=== PATIENT | male | born 1980 | race Asian ===

== ENCOUNTER 2018-03-24 17:04 | Emergency (ER) | payer SELFPAY ==
[~2018-03-24] VITALS: Ht 160 cm; Wt 45.4 kg
[2018-03-24] MEDS ORDERED: Albuterol/Ipratropium 3ml neb HHN ONE (17:45)
--- NOTE | 2018-03-24 18:13 | Emergency Room Report ---
History of Present Illness General Chief Complaint: Medical Clearance Source: Patient Present Illness HPI 37-year-old male patient presents ER presents ER brought in by police for medical clearance for incarceration. Patient requesting refill of medications for hyperthyroidism hands asthma. Reports has not been taking medication for several weeks since previous released from [facility]. reports that he takes 5 mg of methimazole for hyperthyroidism and dulera for asthma. Reports has been using meth for the past few days. denies acute complaints at this time. Denies fever, chest pain, shortness of breath, abdominal pain, vision changes, diarrhea, constipation. DEnies dysuria, hematuria. denies suicidal or homicidal ideation. Allergies: Coded Allergies: No Known Allergies (Unverified , 03/24/18) Patient History Past Medical History: see triage record Reviewed Nursing Documentation: PMH: Agreed; PSxH: Agreed Nursing Documentation-PMH Past Medical History: No History, Except For Hx Asthma: Yes History Of Psychiatric Problem: Yes - depression, bipolar Review of Systems All Other Systems: negative except mentioned in HPI Physical Exam Vital Signs Date Time Temp Pulse Resp B/P (MAP) Pulse Ox O2 Delivery O2 Flow Rate FiO2 03/24/18 17:06 97.5 94 16 135/102 100 Room Air 97.5 03/24/18 17:48 21 Sp02 EP Interpretation: reviewed, normal General Appearance: well appearing, no apparent distress, alert, GCS 15, non- toxic Head: normocephalic, atraumatic Eyes: bilateral eye normal inspection, bilateral eye PERRL ENT: hearing grossly normal, normal pharynx, no angioedema, normal voice, uvula midline, moist mucus membranes Neck: full range of motion Respiratory: lungs clear, no rhonchi, no respiratory distress, no accessory muscle use, no wheezing, decreased breath sounds - bilateral lower lung villavicencio, speaking full sentences Cardiovascular #1: regular rate, rhythm, no edema Gastrointestinal: non tender, soft, no mass, non-distended, no guarding, no rebound Musculoskeletal: back normal, digits/nails normal, gait/station normal, normal range of motion, non-tender Neurologic: alert, oriented x3, responsive, motor strength/tone normal, sensory intact Psychiatric: mood/affect normal, no suicidal/homicidal ideation Skin: no rash Medical Decision Making PA Attestation Dr. Rosenthal is my supervising Physician whom patient management has been discussed with. Diagnostic Impression: Primary Impression: Medical clearance for incarceration Additional Impressions: Asthma Hyperthyroidism ER Course Pt. presents to the ED requesting medical clearance for booking. Multiple differentials considered. Patient Vitals Signs WNL, patient is afebrile. ER COURSE: Patient has no acute complaints. Will provide 5 mg of methimazole to patient. Decreased breath sounds noted in bilateral lower lung villavicencio, with provide breathing treatment. Patient afebrile, no crackles does not require chest x-ray , low suspicion for pneumonia. Albuterol/Atrovent breathing treatment provided. Following treatment patient states breathing without difficulty, lung sounds present in all villavicencio, no wheezes, rhonchi, rales. Patient is resting comfortably in no acute distress. No skull depression, no abdominal TTP. Patient not suicidal or homicidal at this time. Patient in no acute distress, nontoxic appearing, breathing without difficulty. Patient informed by police would not be able to receive prescriptions, do not need to provide patient with prescriptions at this time, states will be seen by medical staff after booking, instructed patient to discuss medication refills and needs at that time. Don't do drugs. DISCHARGE: At this time pt. is stable for d/c to police custody. Will provide printed patient care instructions, and any necessary prescriptions. Care plan and follow up instructions have been discussed with the patient prior to discharge - Please note that this Emergency Department Report was dictated using [employer] lead consultant technology software, occasionally this can lead to erroneous entry secondary to interpretation by the dictation equipment. Last Vital Signs Date Time Temp Pulse Resp B/P (MAP) Pulse Ox O2 Delivery O2 Flow Rate FiO2 03/24/18 17:57 88 20 100 Room Air 21 03/24/18 17:06 97.5 135/102 97.5 Disposition: HOME, SELF-CARE Condition: Stable Referrals: NOT CHOSEN [facility]/,REFERRING (PCP) Patient Instructions: Asthma, Adult, [id number], Hyperthyroidism Additional Instructions: Followup with primary care provider in 3 -5 days. Take medications as directed. Patient questions asked and answered. ER precautions given, patient instructed to return to ER immediately for any new or worsening of symptoms. Marquez Sanchez Mar 24, 2018 18:13
[2018-03-24 18:20] VITALS: BP 127/89
== END 2018-03-24 18:20 | disposition home or self-care (01) ==
LOC: EMR 17:25
DX: Z02.89 Encounter for other administrative examinations (principal); F32.9 Major depressive disorder, single episode, unspecified; E05.90 Thyrotoxicosis, unspecified without thyrotoxic crisis or storm; J45.909 Unspecified asthma, uncomplicated; F15.90 Other stimulant use, unspecified, uncomplicated; F17.200 Nicotine dependence, unspecified, uncomplicated
CPT/HCPCS: 94640; 94664; 99284; J7620

== ENCOUNTER 2019-05-22 17:09 | Inpatient (IN) | payer OTHER, SELFPAY ==
[~2019-05-22] VITALS: Ht 162.6 cm; Wt 56.0 kg
[2019-05-22 17:16] VITALS: BP 126/75
--- NOTE | 2019-05-22 17:21 | NUR ---
ED Nurse Note: Pt BIBA from home due to SOB and productive cough with yellowish sputum started last night. Pt takes Redihaler and Dulera at home for Asthma but medications have not been working well. Was given Albuterol en route. Pt also complains of chest discomfort/pressure 9/10 at this time. Upon arrival, pt was noted to use accessary muscles to breathe, lung sounds wheezing, diminished. Was put on 2L NC to assist breathing by RT. AOOx4, HR >100, ERMD aware. color television console monitor attached. Will cont to monitor.
[2019-05-22] MEDS ORDERED: Solu-MEDROL 125mg Inj IVP ONE (17:30)
[2019-05-22] MEDS: Ipratropium 0.02% Inh Soln 2.5ml UD HHN SCH ×3 (17:32→17:37)
[2019-05-22] MEDS: Albuterol ud Inhalation HHN SCH ×3 (17:32→17:37)
--- NOTE | 2019-05-22 17:42 | NUR ---
ED Nurse Note: X-ray tech at bedside for imaging.
[2019-05-22] MEDS ORDERED: NASONEX17 GM NASAL (17:43)
[2019-05-22] MEDS ORDERED: QVAR7.3 GM INH (17:43)
[2019-05-22 17:51] LABS: BASOPHILS % (AUTO) 0.8 % (0.0-2.0); EOSINOPHILS % (AUTO) 3.3 % (0.0-3.0); HEMOGLOBIN 15.3 G/DL (14.2-18.0); MEAN CORPUSCULAR VOLUME 94 FL (80-99); MONOCYTES % (AUTO) 7.8 % (1.0-10.0); NEUTROPHILS % (AUTO) 67.1 % (45.0-75.0); PLATELET COUNT 207 K/UL (150-450); RED BLOOD COUNT 4.89 M/UL (4.70-6.10); RED CELL DISTRIBUTION WIDTH 11.8 % (11.6-14.8); WHITE BLOOD COUNT 9.3 K/UL (4.8-10.8)
[2019-05-22 18:02] LABS: ANION GAP 11 mmol/L (5-15); BLOOD UREA NITROGEN 14 mg/dL (7-18); CARBON DIOXIDE 27 MMOL/L (21-32); CHLORIDE 106 MMOL/L (98-107); CREATININE 0.9 MG/DL (0.55-1.30); POTASSIUM 3.5 MMOL/L (3.5-5.1); SODIUM 144 MMOL/L (136-145)
--- NOTE | 2019-05-22 18:06 | Diagnostic Imaging Report ---
Indication: Reason For Exam: COUGH Technique: Single AP view of the chest. Comparison: None. Findings: Evaluation of the cardiomediastinal silhouette is limited due to significant patient rotation. There is pulmonary vascular congestion. There is streaky right basilar airspace opacity. No pneumothorax. No pleural fluid. No acute osseous abnormality. IMPRESSION: 1. Limited examination due to patient rotation. 2. Pulmonary vascular congestion with right basilar airspace opacity which may represent atelectasis but pneumonia should be excluded on a clinical basis. This corresponds with the statrad preliminary report.
[2019-05-22 18:07] LABS: ALANINE AMINOTRANSFERASE 26 U/L (12-78); ALBUMIN 3.4 G/DL (3.4-5.0); ALBUMIN/GLOBULIN RATIO 1.1 (1.0-2.7); ALKALINE PHOSPHATASE 110 U/L (46-116); ASPARTATE AMINO TRANSFERASE 21 U/L (15-37); BILIRUBIN,TOTAL 0.6 MG/DL (0.2-1.0)
[2019-05-22] MEDS ORDERED: Azithromycin 500 MG in NS 275 ML IV ONE (18:30)
[2019-05-22] MEDS ORDERED: cefTRIAXone 1 GM in NS 55 ML IVPB ONE (18:30)
[2019-05-22 18:37] VITALS: BP 130/83
[2019-05-22 18:47] LABS: APPEARANCE,URINE SLIGHTLY CLOUDY; BILIRUBIN, URINE NEGATIVE (NEGATIVE); GLUCOSE, URINE (UA) NEGATIVE (NEGATIVE); KETONES,URINE NEGATIVE (NEGATIVE); LEUKOCYTE ESTERASE ,URINE NEGATIVE (NEGATIVE); NITRITE,URINE NEGATIVE (NEGATIVE); PH,URINE 5 (4.5-8.0); PROTEIN,URINE NEGATIVE (NEGATIVE); UROBILINOGEN,URINE NORMAL MG/DL (0.0-1.0)
--- NOTE | 2019-05-22 18:52 | Emergency Room Report ---
History of Present Illness General Chief Complaint: Dyspnea/Respdistress Source: Patient Present Illness HPI 38-year-old male resents ED for evaluation. Patient brought in by EMS from home. Complaining of cough and wheezing. States he has been feeling "sick" since yesterday. Cough is productive with yellowish phlegm. States that he does have asthma and states that this triggered his asthma. Has been using his inhaler without significant relief. Was given a breathing treatment by EMS. 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 Did not receive a flu shot this year. Denies recent travel. No other aggravating relieving factors. Denies any other associated symptoms Allergies: Coded Allergies: No Known Allergies (Unverified , 03/24/18) Patient History Past Medical History: asthma Past Surgical History: none Pertinent Family History: none Social History: Denies: smoking, alcohol use, drug use Immunizations: UTD Reviewed Nursing Documentation: PMH: Agreed; PSxH: Agreed Nursing Documentation-PMH Past Medical History: No History, Except For Hx Asthma: Yes Review of Systems All Other Systems: negative except mentioned in HPI Physical Exam Vital Signs Date Time Temp Pulse Resp B/P (MAP) Pulse Ox O2 Delivery O2 Flow Rate FiO2 05/22/19 17:10 97 24 108/66 (80) 98 Room Air 05/22/19 17:16 98.6 2.0 05/22/19 17:32 28 Sp02 EP Interpretation: reviewed, normal General Appearance: alert, GCS 15, non-toxic, moderate distress Head: normocephalic, atraumatic Eyes: bilateral eye normal inspection, bilateral eye PERRL ENT: hearing grossly normal, normal pharynx, no angioedema, normal voice Neck: full range of motion, supple/symm/no masses Respiratory: normal breath sounds, crackles, speaking full sentences, wheezing Cardiovascular #1: no edema, tachycardia Cardiovascular #2: 2+ carotid (R), 2+ carotid (L), 2+ radial (R), 2+ radial (L) , 2+ dorsalis pedis (R), 2+ dorsalis pedis (L) Gastrointestinal: normal bowel sounds, non tender, soft, non-distended, no guarding, no rebound Rectal: deferred Genitourinary: normal inspection, no CVA tenderness Musculoskeletal: back normal, gait/station normal, normal range of motion, non- tender Neurologic: alert, oriented x3, responsive, motor strength/tone normal, sensory intact, speech normal Psychiatric: judgement/insight normal, memory normal, mood/affect normal, no suicidal/homicidal ideation Reflexes: 3+ bicep (R), 3+ bicep (L), 3+ tricep (R), 3+ tricep (L), 3+ knee (R) , 3+ knee (L) Lymphatic: no adenopathy Medical Decision Making Diagnostic Impression: Primary Impression: Pneumonia Qualified Codes: J18.1 - Lobar pneumonia, unspecified organism Additional Impression: Asthma Qualified Codes: J45.909 - Unspecified asthma, uncomplicated ER Course Hospital Course 38 yo M presents to ED c/o cough, wheezing Differential diagnoses include: Pneumonia, CHF exacerbation, pneumothorax, fluid overload Clinical course Patient placed on stretcher. On hall monitor. After initial history and physical, I ordered nebulizer treatments. I ordered labs, IV fluids, EKG, chest x-ray, blood cultures, UA. Patient placed on nasal cannula with O2 saturation improving Labs - no leukocytosis, hemoglobin/hematocrit stable, electrolytes ok, lactate 2.0 EKG - NSR, no acute ischemic changes interpreted by me CXR - R lower lobe infiltrate Patient remains wheezing after multiple treatments. Has pneumonia. Given wheezing. Given antibiotics Case discussed with and he agreed to the patient to his service for further care and support I feel this is a highly complex case requiring extensive working including EKG/ Rhythm strip, Xray/CT/US, Blood/urine lab work, repeat exams while in ED, and administration of strong opiates/narcotics for pain control, admission to hospital or close patient follow up. Diagnosis - pneumonia, asthma Patient admitted to telemetry in serious condition Labs Test 05/22/19 17:30 05/22/19 18:25 05/22/19 18:30 White Blood Count 9.3 K/UL (4.8-10.8) Red Blood Count 4.89 M/UL (4.70-6.10) Hemoglobin 15.3 G/DL (14.2-18.0) Hematocrit 46.0 % (42.0-52.0) Mean Corpuscular Volume 94 FL (80-99) Mean Corpuscular Hemoglobin 31.3 PG (27.0-31.0) Mean Corpuscular Hemoglobin Concent 33.2 G/DL (32.0-36.0) Red Cell Distribution Width 11.8 % (11.6-14.8) Platelet Count 207 K/UL (150-450) Mean Platelet Volume 5.6 FL (6.5-10.1) Neutrophils (%) (Auto) 67.1 % (45.0-75.0) Lymphocytes (%) (Auto) 21.0 % (20.0-45.0) Monocytes (%) (Auto) 7.8 % (1.0-10.0) Eosinophils (%) (Auto) 3.3 % (0.0-3.0) Basophils (%) (Auto) 0.8 % (0.0-2.0) Sodium Level 144 MMOL/L (136-145) Potassium Level 3.5 MMOL/L (3.5-5.1) Chloride Level 106 MMOL/L (98-107) Carbon Dioxide Level 27 MMOL/L (21-32) Anion Gap 11 mmol/L (5-15) Blood Urea Nitrogen 14 mg/dL (7-18) Creatinine 0.9 MG/DL (0.55-1.30) Estimat Glomerular Filtration Rate > 60 mL/min (>60) Glucose Level 104 MG/DL (74-106) Calcium Level 9.0 MG/DL (8.5-10.1) Total Bilirubin 0.6 MG/DL (0.2-1.0) Aspartate Amino Transf (AST/SGOT) 21 U/L (15-37) Alanine Aminotransferase (ALT/SGPT) 26 U/L (12-78) Alkaline Phosphatase 110 U/L (46-116) Total Protein 6.6 G/DL (6.4-8.2) Albumin 3.4 G/DL (3.4-5.0) Globulin 3.2 g/dL Albumin/Globulin Ratio 1.1 (1.0-2.7) Lactic Acid Level 2.00 mmol/L (0.4-2.0) Urine Color Yellow Urine Appearance Slightly cloudy Urine pH 5 (4.5-8.0) Urine Specific [place] 1.020 (1.005-1.035) Urine Protein Negative (NEGATIVE) Urine Glucose (UA) Negative (NEGATIVE) Urine Ketones Negative (NEGATIVE) Urine Blood Negative (NEGATIVE) Urine Nitrite Negative (NEGATIVE) Urine Bilirubin Negative (NEGATIVE) Urine Urobilinogen Normal MG/DL (0.0-1.0) Urine Leukocyte Esterase Negative (NEGATIVE) EKG Diagnostic Results Rate: normal Rhythm: NSR ST Segments: no acute changes ASA given to the pt in ED: No Rhythm Strip Diag. Results EP Interpretation: yes Rhythm: NSR, no PVC's, no ectopy Chest X-Ray Diagnostic Results Chest X-Ray Diagnostic Results : Chest X-Ray Ordered: Yes # of Views/Limited/Complete: 1 View Indication: Shortness of Breath EP Interpretation: Yes Interpretation: no pneumothorax, other - RLL infiltrate Impression: Other - pneumonia Electronically Signed by: Electronically signed by Gamaliel Barcenas MD Last Vital Signs Date Time Temp Pulse Resp B/P (MAP) Pulse Ox O2 Delivery O2 Flow Rate FiO2 05/22/19 18:37 98.6 106 18 130/83 100 Nasal Cannula 2.0 28 Status: improved Disposition: ADMITTED INPATIENT Condition: Serious Referrals: [facility],REFERR[facility] (PCP) Gamaliel Barcenas MD May 22, 2019 18:52
[2019-05-22 18:55] LABS: COLOR,URINE YELLOW
--- NOTE | 2019-05-22 19:05 | NUR ---
ED Nurse Note: Recieved report from AVERY Smith
--- NOTE | 2019-05-22 19:10 | NUR ---
ED Nurse Note: Report given to AVERY Eisenberg.
--- NOTE | 2019-05-22 20:24 | NUR ---
ED Nurse Note: REPORT GIVEN TO AVERY AUGUSTINE.
--- NOTE | 2019-05-22 20:29 | NUR ---
ED Nurse Note: PT SENT TO TELE (OBS) PER DR'S ORDER, SINUS RHYTHM ON B2B ACCOUNT EXECUTIVE, REPORT WAS GIVEN TO AVERY AUGUSTINE, ALL BELONGINGS SENT W/ COMPLETED LIST, MED RECON DONE, PT STATES HE FEELS BETTER, NOTED PT ON O2VIA NC 2L/MIN 100%. VSS. IV INTACT AND PATENT.
[2019-05-22 20:50] VITALS: BP 110/69
--- NOTE | 2019-05-22 20:50 | NUR ---
NURSE NOTES: Received pt from Evelina Landin RN. pt transported via gurney. pt is a0x4 on 2L nasal cannula support. IV site intact and patent. Bed locked in lowest position, call light within reach. security monitor placed on patient, vitals taken. belongings list signed. Pt meds sent to pharmacy. Will contact MD for admission orders.
[2019-05-22] MEDS ORDERED: Albuterol/Ipratropium 3ml neb HHN PRN (21:30)
[2019-05-23] VITALS: BP 119/78
[2019-05-23] MEDS: Albuterol ud Inhalation HHN SCH ×6 (03:19→23:39)
[2019-05-23 04:00] VITALS: BP 105/56
[2019-05-23] MEDS: Solu-MEDROL 125mg Inj IVP SCH ×3 (06:10→21:22)
[2019-05-23 06:18] LABS: HEMATOCRIT 42.7 % (42.0-52.0); HEMOGLOBIN 14.3 G/DL (14.2-18.0); MEAN CORPUSCULAR VOLUME 94 FL (80-99); PLATELET COUNT 226 K/UL (150-450); RED BLOOD COUNT 4.54 M/UL (4.70-6.10); RED CELL DISTRIBUTION WIDTH 12.8 % (11.6-14.8); WHITE BLOOD COUNT 8.2 K/UL (4.8-10.8)
[2019-05-23 06:28] LABS: ANION GAP 9 mmol/L (5-15); BLOOD UREA NITROGEN 11 mg/dL (7-18); CALCIUM 8.8 MG/DL (8.5-10.1); CARBON DIOXIDE 26 MMOL/L (21-32); CHLORIDE 106 MMOL/L (98-107); CREATININE 0.9 MG/DL (0.55-1.30); SODIUM 141 MMOL/L (136-145)
--- NOTE | 2019-05-23 07:15 | NUR ---
HAND-OFF: Report given to AVERY santo. Endorsed plan of care.
--- NOTE | 2019-05-23 07:20 | NUR ---
NURSE NOTES: Received report from Eleuterio/RN, Patient is awake, eating breakfast on bed. Breathing unlabored and even, no acute distress/SOB noted. AAO x4, Able to make needs known. IV site patent, no bleeding or infiltration noted. Encouraged to use call light when needed. Bed in low position and locked, Bed alarm engaged. Call light within reach. Will continue plan of care.
[2019-05-23 08:00] VITALS: BP 124/77
[2019-05-23] MEDS: Azithromycin 250mg tab ORAL SCH (08:51)
[2019-05-23] MEDS: cefTRIAXone 1 GM in D5W 55 ML IVPB SCH (08:51)
[2019-05-23] MEDS: Heparin 5000 units/ml inj SUBQ SCH ×2 (08:54→21:00)
--- NOTE | 2019-05-23 08:54 | NUR ---
*-* INSURANCE *-* ALL AVAILABLE CLINICALS HAVE BEEN FAXED TO: [facility] RANDOLPH: ARSEN P- [phone] X [phone] F- [phone]...........REVIEW/CLINICAL Addendum: 05/23/19 at 1500 by SAUL MOORE CM S/W [facility] HAVE BEEN RECEIVED BUT IN THEIR SYSTEM PT IS STILL OBS...
[2019-05-23] MEDS ORDERED: Azithromycin 250mg tab ORAL SCH (09:00)
--- NOTE | 2019-05-23 09:22 | Pulmonology Progress Note ---
Assessment/Plan Assessment/Plan Pulmonary Consultation HPI Patient is a 38 year old man with history of Asthma admitted with Asthma exacerbation and Pneumonia, complained of cough and wheezing, malaise, cough is productive of yellowish phlegm. States that he does have asthma and states that this triggered his asthma. 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 Did not receive a flu shot this year. Denies recent travel. No other aggravating relieving factors. Denies any other associated symptoms Allergies: No Known Allergies Past Medical History: Asthma, "Underdeveloped Lung" Social History: Denies: smoking, alcohol use, drug use All Other Systems: negative except mentioned in HPI Physical Exam Vital Signs Noted Date Time Temp Pulse Resp B/P (MAP) Pulse Ox O2 Delivery O2 Flow Rate FiO2 05/22/19 17:10 97 24 108/66 (80) 98 Room Air 05/22/19 17:16 98.6 2.0 05/22/19 17:32 28 General Appearance: alert, GCS 15, non-toxic, no distress Head: normocephalic, atraumatic Eyes: bilateral eye normal inspection, bilateral eye PERRL ENT: moist mm, no LN Respiratory: normal breath sounds, mild wheezing, few right basal crackles Cardiovascular: Normal HS1, HS2, no edema, tachycardia Abdomen: normal bowel sounds, non tender, soft, non-distended, no guarding, no rebound Extremities: well perfused, no rashes Neurologic: alert, oriented x3, responsive, motor strength/tone normal, sensory intact, speech normal Impression: Asthma exacerbation Underdeveloped lung Pneumonia Plan: IV Ceftriaxone, PO Azithromycin Solumedrol - wean as tolerated HHN Oxygen PRN PPX Monitor labs Labs Test 05/22/19 17:30 05/22/19 18:25 05/22/19 18:30 White Blood Count 9.3 K/UL (4.8-10.8) Red Blood Count 4.89 M/UL (4.70-6.10) Hemoglobin 15.3 G/DL (14.2-18.0) Hematocrit 46.0 % (42.0-52.0) Mean Corpuscular Volume 94 FL (80-99) Mean Corpuscular Hemoglobin 31.3 PG (27.0-31.0) Mean Corpuscular Hemoglobin Concent 33.2 G/DL (32.0-36.0) Red Cell Distribution Width 11.8 % (11.6-14.8) Platelet Count 207 K/UL (150-450) Mean Platelet Volume 5.6 FL (6.5-10.1) Neutrophils (%) (Auto) 67.1 % (45.0-75.0) Lymphocytes (%) (Auto) 21.0 % (20.0-45.0) Monocytes (%) (Auto) 7.8 % (1.0-10.0) Eosinophils (%) (Auto) 3.3 % (0.0-3.0) Basophils (%) (Auto) 0.8 % (0.0-2.0) Sodium Level 144 MMOL/L (136-145) Potassium Level 3.5 MMOL/L (3.5-5.1) Chloride Level 106 MMOL/L (98-107) Carbon Dioxide Level 27 MMOL/L (21-32) Anion Gap 11 mmol/L (5-15) Blood Urea Nitrogen 14 mg/dL (7-18) Creatinine 0.9 MG/DL (0.55-1.30) Estimat Glomerular Filtration Rate > 60 mL/min (>60) Glucose Level 104 MG/DL (74-106) Calcium Level 9.0 MG/DL (8.5-10.1) Total Bilirubin 0.6 MG/DL (0.2-1.0) Aspartate Amino Transf (AST/SGOT) 21 U/L (15-37) Alanine Aminotransferase (ALT/SGPT) 26 U/L (12-78) Alkaline Phosphatase 110 U/L (46-116) Total Protein 6.6 G/DL (6.4-8.2) Albumin 3.4 G/DL (3.4-5.0) Globulin 3.2 g/dL Albumin/Globulin Ratio 1.1 (1.0-2.7) Lactic Acid Level 2.00 mmol/L (0.4-2.0) Urine Color Yellow Urine Appearance Slightly cloudy Urine pH 5 (4.5-8.0) Urine Specific [place] 1.020 (1.005-1.035) Urine Protein Negative (NEGATIVE) Urine Glucose (UA) Negative (NEGATIVE) Urine Ketones Negative (NEGATIVE) Urine Blood Negative (NEGATIVE) Urine Nitrite Negative (NEGATIVE) Urine Bilirubin Negative (NEGATIVE) Urine Urobilinogen Normal MG/DL (0.0-1.0) Urine Leukocyte Esterase Negative (NEGATIVE) EKG: Rate: normal Rhythm: NSR ST Segments: no acute changes Chest X-Ray: no pneumothorax, other - RLL infiltrate Subjective ROS Limited/Unobtainable: No Respiratory: Reports: shortness of breath, wheezing Allergies: Coded Allergies: No Known Allergies (Unverified , 03/24/18) Objective Last 24 Hour Vital Signs Date Time Temp Pulse Resp B/P (MAP) Pulse Ox O2 Delivery O2 Flow Rate FiO2 05/23/19 08:00 98.1 104 22 124/77 (93) 98 05/23/19 07:30 92 18 99 Nasal Cannula 2.0 28 90 18 99 05/23/19 04:00 98.0 98 20 105/56 (72) 94 05/23/19 04:00 98 05/23/19 03:19 96 18 99 Nasal Cannula 2.0 28 94 18 96 05/23/19 00:18 113 20 98 Nasal Cannula 2.0 28 110 18 93 05/23/19 00:00 98.2 94 23 119/78 (92) 96 05/23/19 00:00 94 05/22/19 21:05 Nasal Cannula 2.0 05/22/19 21:02 94 05/22/19 20:50 98.1 94 20 110/69 (83) 99 05/22/19 20:30 98.6 106 35 130/83 98 Nasal Cannula 2.0 28 05/22/19 19:26 126 35 98 05/22/19 18:37 98.6 106 18 130/83 100 Nasal Cannula 2.0 28 05/22/19 17:40 112 20 Nasal Cannula 2.0 28 05/22/19 17:32 112 20 100 Nasal Cannula 2.0 28 05/22/19 17:32 112 20 100 Nasal Cannula 2.0 28 05/22/19 17:16 98.6 110 30 126/75 100 Nasal Cannula 2.0 05/22/19 17:10 97 24 108/66 (80) 98 Room Air Intake and Output 05/22/19 05/23/19 19:00 07:00 Intake Total 1055 ml 100 ml Balance 1055 ml 100 ml Intake IV Total 1055 ml 100 ml # Voids 1 2 Laboratory Tests 05/22/19 17:30: White Blood Count 9.3, Red Blood Count 4.89, Hemoglobin 15.3, Hematocrit 46.0, Mean Corpuscular Volume 94, Mean Corpuscular Hemoglobin 31.3H, Mean Corpuscular Hemoglobin Concent 33.2, Red Cell Distribution Width 11.8, Platelet Count 207, Mean Platelet Volume 5.6L, Neutrophils (%) (Auto) 67.1, Lymphocytes (%) (Auto) 21.0, Monocytes (%) (Auto) 7.8, Eosinophils (%) (Auto) 3.3H, Basophils (%) (Auto ) 0.8, Sodium Level 144, Potassium Level 3.5, Chloride Level 106, Carbon Dioxide Level 27, Anion Gap 11, Blood Urea Nitrogen 14, Creatinine 0.9, Estimat Glomerular Filtration Rate > 60, Glucose Level 104, Calcium Level 9.0, Total Bilirubin 0.6, Aspartate Amino Transf (AST/SGOT) 21, Alanine Aminotransferase ( ALT/SGPT) 26, Alkaline Phosphatase 110, Total Protein 6.6, Albumin 3.4, Globulin 3.2, Albumin/Globulin Ratio 1.1 05/22/19 18:25: Lactic Acid Level 2.00 05/22/19 18:30: Urine Color Yellow, Urine Appearance Slightly cloudy, Urine pH 5, Urine Specific [place] 1.020, Urine Protein Negative, Urine Glucose (UA) Negative, Urine Ketones Negative, Urine Blood Negative, Urine Nitrite Negative, Urine Bilirubin Negative, Urine Urobilinogen Normal, Urine Leukocyte Esterase Negative 05/23/19 06:03: White Blood Count 8.2, Red Blood Count 4.54L, Hemoglobin 14.3, Hematocrit 42.7, Mean Corpuscular Volume 94, Mean Corpuscular Hemoglobin 31.5H, Mean Corpuscular Hemoglobin Concent 33.5, Red Cell Distribution Width 12.8, Platelet Count 226, Mean Platelet Volume 5.3L, Neutrophils (%) (Auto) , Lymphocytes (%) (Auto) , Monocytes (%) (Auto) , Eosinophils (%) (Auto) , Basophils (%) (Auto) , Sodium Level 141, Potassium Level 5.0, Chloride Level 106, Carbon Dioxide Level 26, Anion Gap 9, Blood Urea Nitrogen 11, Creatinine 0.9, Estimat Glomerular Filtration Rate > 60, Glucose Level 131H, Calcium Level 8.8 Current Medications Medications (Trade) Dose Ordered Sig/Niki Route PRN Reason Start Time Stop Time Status Last Admin Dose Admin Acetaminophen (Tylenol) 650 mg Q4H PRN ORAL Mild Pain/Temp > 100.5 05/22/19 21:30 06/21/19 21:29 Albuterol Sulfate (Proventil) 2.5 mg Q4HRT HHN 05/23/19 03:00 05/28/19 02:59 05/23/19 07:34 Albuterol/ Ipratropium (Albuterol/ Ipratropium) 3 ml Q4H PRN HHN Shortness of Breath 05/22/19 21:30 05/27/19 21:29 05/23/19 00:14 Azithromycin (Zithromax) 500 mg DAILY ORAL 05/23/19 09:00 05/30/19 08:59 05/23/19 08:51 Ceftriaxone Sodium 1 gm/ Dextrose 55 ml @ 110 mls/hr Q24H IVPB 05/23/19 08:00 05/30/19 07:59 05/23/19 08:51 Heparin Sodium (Porcine) (Heparin 5000 units/ml) 5,000 units EVERY 12 HOURS SUBQ 05/23/19 09:00 06/22/19 08:59 05/23/19 08:54 Methylprednisolone Sodium Succinate (Solu-MEDROL) 60 mg EVERY 8 HOURS IVP 05/23/19 06:00 06/22/19 05:59 05/23/19 06:10 Ondansetron HCl (Zofran) 4 mg Q6H PRN IVP Nausea & Vomiting 05/22/19 21:30 06/21/19 21:29 Sodium Chloride 1,000 ml @ 55 mls/hr [id number] IV 05/22/19 21:30 06/21/19 21:29 05/22/19 00:24 Tej Ren MD May 23, 2019 09:22
[2019-05-23 12:00] VITALS: BP 119/78
[2019-05-23] MEDS: guaiFENesin 100mg/5ml Liq ud ORAL PRN (13:13)
--- NOTE | 2019-05-23 13:39 | NUR ---
CASE MANAGEMENT: INITIAL REVIEW 38 YR OLD MALE BIBA FROM HOME CC: DYSPNEA/ RESP. DISTRESS SI: PNA; ASTHMA 98.6 97 24 108/66 98%RA IS: IVF NS BOLUS X2 PROVENTIL HHN X1 ATROVENT HHN X1 IV SOLUMEDROL X1 IV RECEPHIN X1 IV AZITHROMYCIN X1 IV MAG SULFATE X1 : 2E TELE UNIT DCP: RETURN HOME WHEN MEDICALLY CLEARED
--- NOTE | 2019-05-23 13:50 | NUR ---
CASE MANAGEMENT: INITIAL REVIEW 05/23/19 SI: PNA; ASTHMA 98.1 104 22 124/77 98% NC 2L BG 131 IS: ZITHROMAX PO QD IV CEFTRIAXONE Q24HR HEPARIN SQ Q12HR IV SOLUMEDROL Q8HR PROTONIX PO QD NOVOLOG SQ AC&HS ALBUTEROL HHN Q4HR : 2E TELE UNIT DCP: RETURN HOME WHEN MEDICALLY CLEARED
[2019-05-23 16:00] VITALS: BP 126/77
[2019-05-23] MEDS ORDERED: Sorbitol Solution UD 30ml ORAL SCH (16:30)
[2019-05-23] MEDS: NovoLOG Insulin Flexpen SUBQ SCH ×2 (16:42→21:24)
[2019-05-23 17:35] LABS: HEMATOCRIT 44.9 % (42.0-52.0); HEMOGLOBIN 15.1 G/DL (14.2-18.0); MEAN CORPUSCULAR VOLUME 93 FL (80-99); PLATELET COUNT 229 K/UL (150-450); RED BLOOD COUNT 4.81 M/UL (4.70-6.10); RED CELL DISTRIBUTION WIDTH 12.1 % (11.6-14.8); WHITE BLOOD COUNT 13.1 K/UL (4.8-10.8)
[2019-05-23] MEDS ORDERED: Pneumococcal Vaccine 25mcg/0.5ml IM ONE (18:00)
--- NOTE | 2019-05-23 19:01 | Consultation ---
DATE OF CONSULTATION: 05/23/2019 INFECTIOUS DISEASE CONSULTATION CONSULTING PHYSICIAN: Omi Andres M.D. PRIMARY ATTENDING: Josep Agrawal M.D. REASON FOR CONSULT: Pneumonia, asthma exacerbation. HISTORY OF PRESENT ILLNESS: This is a 38-year-old male admitted yesterday from home complaining of cough, wheezing, started 1 day before admission. Had yellowish sputum, substernal chest pain with coughing. Has history of asthma and takes medication including inhaler at the home that did not work. PAST MEDICAL HISTORY: Asthma, nicotine dependence. ALLERGIES: No known drug allergy. MEDICATIONS: Getting azithromycin, heparin, ceftriaxone, methylprednisolone, albuterol, ipratropium inhaler, Zofran, sodium chloride. SOCIAL HISTORY: Smoking 1 half pack cigarettes a day. Single. Has no kids. Denies drug or alcohol abuse. REVIEW OF SYSTEMS: He feels hot and cold. No sore throat. No runny nose. Productive cough, wheezing , chest pain with coughing. No nausea. No vomiting. No diarrhea. No problem passing urine. His explanation is that the patient had flu shot this year, but never had pneumonia vaccination. PHYSICAL EXAMINATION: VITAL SIGNS: Temperature 98.1, pulse 94, blood pressure 124/77. GENERAL APPEARANCE: No acute distress. Well developed. HEAD AND NECK: Standard conjunctiva. HEART: Normal rate, regular. LUNGS: Bilateral wheezing. ABDOMEN: Soft, nontender. EXTREMITIES: No edema. LABORATORY AND DIAGNOSTIC DATA: UA was negative. WBC 8.2, hemoglobin 14.3, hematocrit 42.7, platelets is 226. Sodium 141, potassium 5, chloride 106, bicarb 26, BUN 11, creatinine 0.9, glucose 131. Chest x-ray showed pulmonary vascular congestion with right basilar airspace opacity with atelectasis, cannot rule out pneumonia. IMPRESSION: 1. Atelectasis with pneumonia in right lower lung. 2. Asthma exacerbation. 3. Nicotine dependence. RECOMMENDATION: Continue ceftriaxone and azithromycin short course. The patient is willing to quit smoking. We will start a nicotine patch. Also wants to get pneumonia vaccination that was ordered. At the end of my exam, I thank Dr. Agrawal for involving me in the care of this patient. Omi Andres M.D. DR: CHELSY JOB#: [id number] CC: NEO
--- NOTE | 2019-05-23 19:35 | NUR ---
NURSE NOTES: Received patient from AVERY Gramajo. Patient resting in bed comfortably, no signs of distress or pain noted. IV sit checked, patent and intact, no signs of redness, bleeding, or infiltration. Bed in lowest position, brakes on, side rails up x2, and call light within reach. Will continue with plan of care.
--- NOTE | 2019-05-23 19:55 | NUR ---
HAND-OFF: Report given to Josie/RN, Patient in stable condition. Endorsed plan of care.
[2019-05-23 20:00] VITALS: BP 121/73
[2019-05-24] VITALS: BP 133/90
[2019-05-24] MEDS: Albuterol ud Inhalation HHN SCH ×7 (03:35→23:42)
[2019-05-24 04:00] VITALS: BP 114/74
[2019-05-24] MEDS: Solu-MEDROL 125mg Inj IVP SCH (06:00)
[2019-05-24] MEDS: NovoLOG Insulin Flexpen SUBQ SCH ×4 (06:30→20:36)
--- NOTE | 2019-05-24 07:15 | NUR ---
NURSE NOTES: Received report from Josie/RN, Patient is awake and alert. Breathing unlabored and even, no acute distress/SOB noted. A/O x4, Able to make needs known. IV site patent, no bleeding or infiltration noted. Tracey pain at this time. Encouraged to use call light when needed. Bed in low position and locked, Bed alarm engaged, Side-rails up x2. Call light within reach. Will continue plan of care.
[2019-05-24 07:24] LABS: HEMOGLOBIN 15.1 G/DL (14.2-18.0); MEAN CORPUSCULAR VOLUME 94 FL (80-99); PLATELET COUNT 239 K/UL (150-450); RED BLOOD COUNT 4.87 M/UL (4.70-6.10); WHITE BLOOD COUNT 14.2 K/UL (4.8-10.8)
[2019-05-24 08:00] VITALS: BP 138/90
[2019-05-24] MEDS: cefTRIAXone 1 GM in D5W 55 ML IVPB SCH (08:28)
[2019-05-24] MEDS: Azithromycin 250mg tab ORAL SCH (08:28)
[2019-05-24] MEDS: Heparin 5000 units/ml inj SUBQ SCH ×2 (09:00→21:00)
--- NOTE | 2019-05-24 10:50 | Pulmonology Progress Note ---
Assessment/Plan Assessment/Plan Pulmonary Progress Note HPI Patient is a 38 year old man with history of Asthma admitted with Asthma exacerbation and Pneumonia, complained of cough and wheezing, malaise, cough is productive of yellowish phlegm. States that he does have asthma and states that this triggered his asthma. 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 Did not receive a flu shot this year. Denies recent travel. No other aggravating relieving factors. Denies any other associated symptoms Less SOB Physical Exam Vital Signs Noted General Appearance: alert, GCS 15, non-toxic, no distress Head: normocephalic, atraumatic Eyes: bilateral eye normal inspection, bilateral eye PERRL ENT: moist mm, no LN Respiratory: normal breath sounds Cardiovascular: Normal HS1, HS2, no edema, tachycardia Abdomen: normal bowel sounds, non tender, soft, non-distended, no guarding, no rebound Extremities: well perfused, no rashes Neurologic: alert, oriented x3, responsive, motor strength/tone normal, sensory intact, speech normal Impression: Asthma exacerbation Underdeveloped lung Pneumonia Plan: IV Ceftriaxone, PO Azithromycin Solumedrol - wean as tolerated HHN Oxygen PRN PPX Monitor labs Labs noted Test 05/22/19 17:30 05/22/19 18:25 05/22/19 18:30 White Blood Count 9.3 K/UL (4.8-10.8) Red Blood Count 4.89 M/UL (4.70-6.10) Hemoglobin 15.3 G/DL (14.2-18.0) Hematocrit 46.0 % (42.0-52.0) Mean Corpuscular Volume 94 FL (80-99) Mean Corpuscular Hemoglobin 31.3 PG (27.0-31.0) Mean Corpuscular Hemoglobin Concent 33.2 G/DL (32.0-36.0) Red Cell Distribution Width 11.8 % (11.6-14.8) Platelet Count 207 K/UL (150-450) Mean Platelet Volume 5.6 FL (6.5-10.1) Neutrophils (%) (Auto) 67.1 % (45.0-75.0) Lymphocytes (%) (Auto) 21.0 % (20.0-45.0) Monocytes (%) (Auto) 7.8 % (1.0-10.0) Eosinophils (%) (Auto) 3.3 % (0.0-3.0) Basophils (%) (Auto) 0.8 % (0.0-2.0) Sodium Level 144 MMOL/L (136-145) Potassium Level 3.5 MMOL/L (3.5-5.1) Chloride Level 106 MMOL/L (98-107) Carbon Dioxide Level 27 MMOL/L (21-32) Anion Gap 11 mmol/L (5-15) Blood Urea Nitrogen 14 mg/dL (7-18) Creatinine 0.9 MG/DL (0.55-1.30) Estimat Glomerular Filtration Rate > 60 mL/min (>60) Glucose Level 104 MG/DL (74-106) Calcium Level 9.0 MG/DL (8.5-10.1) Total Bilirubin 0.6 MG/DL (0.2-1.0) Aspartate Amino Transf (AST/SGOT) 21 U/L (15-37) Alanine Aminotransferase (ALT/SGPT) 26 U/L (12-78) Alkaline Phosphatase 110 U/L (46-116) Total Protein 6.6 G/DL (6.4-8.2) Albumin 3.4 G/DL (3.4-5.0) Globulin 3.2 g/dL Albumin/Globulin Ratio 1.1 (1.0-2.7) Lactic Acid Level 2.00 mmol/L (0.4-2.0) Urine Color Yellow Urine Appearance Slightly cloudy Urine pH 5 (4.5-8.0) Urine Specific [place] 1.020 (1.005-1.035) Urine Protein Negative (NEGATIVE) Urine Glucose (UA) Negative (NEGATIVE) Urine Ketones Negative (NEGATIVE) Urine Blood Negative (NEGATIVE) Urine Nitrite Negative (NEGATIVE) Urine Bilirubin Negative (NEGATIVE) Urine Urobilinogen Normal MG/DL (0.0-1.0) Urine Leukocyte Esterase Negative (NEGATIVE) EKG: Rate: normal Rhythm: NSR ST Segments: no acute changes Chest X-Ray: no pneumothorax, other - RLL infiltrate Subjective ROS Limited/Unobtainable: No Allergies: Coded Allergies: No Known Allergies (Unverified , 03/24/18) Objective Last 24 Hour Vital Signs Date Time Temp Pulse Resp B/P (MAP) Pulse Ox O2 Delivery O2 Flow Rate FiO2 05/24/19 09:00 Nasal Cannula 2.0 05/24/19 08:33 97 Nasal Cannula 2.0 28 05/24/19 08:31 99 20 99 Nasal Cannula 2.0 28 84 20 97 05/24/19 08:00 95 05/24/19 08:00 97.9 84 20 138/90 (106) 96 05/24/19 04:00 96 05/24/19 04:00 98.1 93 18 114/74 (87) 100 05/24/19 03:45 101 20 98 Nasal Cannula 2.0 28 05/24/19 03:35 93 20 94 Nasal Cannula 2.0 28 05/24/19 00:00 98.2 95 18 133/90 (104) 99 05/24/19 00:00 100 05/23/19 23:49 94 20 99 Nasal Cannula 2.0 28 05/23/19 23:39 92 20 94 Nasal Cannula 2.0 28 05/23/19 21:00 Nasal Cannula 2.0 05/23/19 20:00 106 05/23/19 20:00 98.5 109 18 121/73 (89) 97 05/23/19 19:37 110 20 97 Nasal Cannula 2.0 28 05/23/19 19:27 113 20 97 Nasal Cannula 2.0 28 05/23/19 16:00 98.2 108 21 126/77 (93) 98 05/23/19 16:00 117 05/23/19 15:00 94 18 99 Nasal Cannula 2.0 28 92 18 97 05/23/19 12:00 98.3 97 22 119/78 (92) 98 05/23/19 12:00 98 05/23/19 11:00 94 18 99 Nasal Cannula 2.0 28 92 18 97 Intake and Output 05/23/19 05/24/19 19:00 07:00 Intake Total 1500 ml Balance 1500 ml Intake Oral 1500 ml # Voids 5 1 # Bowel Movements 1 2 Microbiology Date/Time Source Procedure Growth Status 05/22/19 18:40 Blood Blood Culture - Preliminary NO GROWTH AFTER 24 HOURS Resulted 05/22/19 18:25 Blood Blood Culture - Preliminary NO GROWTH AFTER 24 HOURS Resulted 05/22/19 17:30 Nasal Nares - Final Complete 05/22/19 17:30 Nasal Nares - Final Complete Laboratory Tests 05/23/19 13:05: Stool Occult Blood Positive 05/23/19 17:15: White Blood Count 13.1#H, Red Blood Count 4.81, Hemoglobin 15.1, Hematocrit 44.9 , Mean Corpuscular Volume 93, Mean Corpuscular Hemoglobin 31.4H, Mean Corpuscular Hemoglobin Concent 33.6, Red Cell Distribution Width 12.1, Platelet Count 229, Mean Platelet Volume 5.3L, Neutrophils (%) (Auto) , Lymphocytes (%) ( Auto) , Monocytes (%) (Auto) , Eosinophils (%) (Auto) , Basophils (%) (Auto) , Differential Total Cells Counted 100, Neutrophils % (Manual) 89H, Lymphocytes % (Manual) 4L, Monocytes % (Manual) 5, Eosinophils % (Manual) 0, Basophils % ( Manual) 0, Band Neutrophils 2, Platelet Estimate Adequate, Platelet Morphology Normal, Red Blood Cell Morphology Normal 05/24/19 06:09: White Blood Count 14.2H, Red Blood Count 4.87, Hemoglobin 15.1, Hematocrit 46.0 , Mean Corpuscular Volume 94, Mean Corpuscular Hemoglobin 31.0, Mean Corpuscular Hemoglobin Concent 32.9, Red Cell Distribution Width 13.0, Platelet Count 239, Mean Platelet Volume 5.3L, Neutrophils (%) (Auto) , Lymphocytes (%) ( Auto) , Monocytes (%) (Auto) , Eosinophils (%) (Auto) , Basophils (%) (Auto) , Differential Total Cells Counted 100, Neutrophils % (Manual) 93H, Lymphocytes % (Manual) 4L, Monocytes % (Manual) 3, Eosinophils % (Manual) 0, Basophils % ( Manual) 0, Band Neutrophils 0, Platelet Estimate Adequate, Platelet Morphology Normal, Red Blood Cell Morphology Normal Current Medications Medications (Trade) Dose Ordered Sig/Niki Route PRN Reason Start Time Stop Time Status Last Admin Dose Admin Acetaminophen (Tylenol) 650 mg Q4H PRN ORAL Mild Pain/Temp > 100.5 05/22/19 21:30 06/21/19 21:29 Albuterol Sulfate (Proventil) 2.5 mg Q4HRT HHN 05/23/19 03:00 05/28/19 02:59 05/24/19 08:30 Albuterol/ Ipratropium (Albuterol/ Ipratropium) 3 ml Q4H PRN HHN Shortness of Breath 05/22/19 21:30 05/27/19 21:29 05/23/19 00:14 Azithromycin (Zithromax) 500 mg DAILY ORAL 05/23/19 09:00 05/30/19 08:59 05/24/19 08:28 Ceftriaxone Sodium 1 gm/ Dextrose 55 ml @ 110 mls/hr Q24H IVPB 05/23/19 08:00 05/30/19 07:59 05/24/19 08:28 Cetylpyridinium Chloride (Cepacol) 1 lozg Q2H PRN GUERA sore throat 05/23/19 13:00 06/22/19 12:59 05/24/19 09:41 Dextrose (Dextrose 50%) 25 ml Q30M PRN IV Hypoglycemia 05/23/19 13:00 06/22/19 12:59 Dextrose (Dextrose 50%) 50 ml Q30M PRN IV Hypoglycemia 05/23/19 13:00 06/22/19 12:59 Guaifenesin (Robitussin) 100 mg Q4H PRN ORAL For Cough 05/23/19 13:00 06/22/19 12:59 05/23/19 13:13 Heparin Sodium (Porcine) (Heparin 5000 units/ml) 5,000 units EVERY 12 HOURS SUBQ 05/23/19 09:00 06/22/19 08:59 05/23/19 08:54 Insulin Aspart (NovoLOG) BEFORE MEALS AND HS SUBQ 05/23/19 16:30 06/22/19 16:29 05/23/19 21:24 Methylprednisolone Sodium Succinate (Solu-MEDROL) 60 mg EVERY 8 HOURS IVP 05/23/19 06:00 06/22/19 05:59 05/24/19 06:00 Nicotine (Nicoderm) 1 patch Q24H TDERMAL 05/23/19 13:00 06/22/19 12:59 05/23/19 13:14 Ondansetron HCl (Zofran) 4 mg Q6H PRN IVP Nausea & Vomiting 05/22/19 21:30 06/21/19 21:29 Pantoprazole (Protonix) 40 mg DAILY ORAL 05/24/19 09:00 06/23/19 08:59 05/24/19 08:28 Sodium Chloride 1,000 ml @ 55 mls/hr [id number] IV 05/22/19 21:30 06/21/19 21:29 05/24/19 09:42 Tej Ren MD May 24, 2019 10:50
--- NOTE | 2019-05-24 11:30 | General Progress Note ---
Assessment/Plan Assessment/Plan: Assessment - Hematochezia - hemorrhoids - has had a recent colonoscopy at [facility] - Asthma Recommendations - stool softener - preparation H - no plans for colonoscopy - get recent colonoscopy records from [facility] Subjective Allergies: Coded Allergies: No Known Allergies (Unverified , 03/24/18) Objective Last 24 Hour Vital Signs Date Time Temp Pulse Resp B/P (MAP) Pulse Ox O2 Delivery O2 Flow Rate FiO2 05/24/19 09:00 Nasal Cannula 2.0 05/24/19 08:33 97 Nasal Cannula 2.0 28 05/24/19 08:31 99 20 99 Nasal Cannula 2.0 28 84 20 97 05/24/19 08:00 95 05/24/19 08:00 97.9 84 20 138/90 (106) 96 05/24/19 04:00 96 05/24/19 04:00 98.1 93 18 114/74 (87) 100 05/24/19 03:45 101 20 98 Nasal Cannula 2.0 28 05/24/19 03:35 93 20 94 Nasal Cannula 2.0 28 05/24/19 00:00 98.2 95 18 133/90 (104) 99 05/24/19 00:00 100 05/23/19 23:49 94 20 99 Nasal Cannula 2.0 28 05/23/19 23:39 92 20 94 Nasal Cannula 2.0 28 05/23/19 21:00 Nasal Cannula 2.0 05/23/19 20:00 106 05/23/19 20:00 98.5 109 18 121/73 (89) 97 05/23/19 19:37 110 20 97 Nasal Cannula 2.0 28 05/23/19 19:27 113 20 97 Nasal Cannula 2.0 28 05/23/19 16:00 98.2 108 21 126/77 (93) 98 05/23/19 16:00 117 05/23/19 15:00 94 18 99 Nasal Cannula 2.0 28 92 18 97 05/23/19 12:00 98.3 97 22 119/78 (92) 98 05/23/19 12:00 98 Intake and Output 05/23/19 05/24/19 19:00 07:00 Intake Total 1500 ml Balance 1500 ml Intake Oral 1500 ml # Voids 5 1 # Bowel Movements 1 2 Laboratory Tests 05/23/19 13:05: Stool Occult Blood Positive 05/23/19 17:15: White Blood Count 13.1#H, Red Blood Count 4.81, Hemoglobin 15.1, Hematocrit 44.9 , Mean Corpuscular Volume 93, Mean Corpuscular Hemoglobin 31.4H, Mean Corpuscular Hemoglobin Concent 33.6, Red Cell Distribution Width 12.1, Platelet Count 229, Mean Platelet Volume 5.3L, Neutrophils (%) (Auto) , Lymphocytes (%) ( Auto) , Monocytes (%) (Auto) , Eosinophils (%) (Auto) , Basophils (%) (Auto) , Differential Total Cells Counted 100, Neutrophils % (Manual) 89H, Lymphocytes % (Manual) 4L, Monocytes % (Manual) 5, Eosinophils % (Manual) 0, Basophils % ( Manual) 0, Band Neutrophils 2, Platelet Estimate Adequate, Platelet Morphology Normal, Red Blood Cell Morphology Normal 05/24/19 06:09: White Blood Count 14.2H, Red Blood Count 4.87, Hemoglobin 15.1, Hematocrit 46.0 , Mean Corpuscular Volume 94, Mean Corpuscular Hemoglobin 31.0, Mean Corpuscular Hemoglobin Concent 32.9, Red Cell Distribution Width 13.0, Platelet Count 239, Mean Platelet Volume 5.3L, Neutrophils (%) (Auto) , Lymphocytes (%) ( Auto) , Monocytes (%) (Auto) , Eosinophils (%) (Auto) , Basophils (%) (Auto) , Differential Total Cells Counted 100, Neutrophils % (Manual) 93H, Lymphocytes % (Manual) 4L, Monocytes % (Manual) 3, Eosinophils % (Manual) 0, Basophils % ( Manual) 0, Band Neutrophils 0, Platelet Estimate Adequate, Platelet Morphology Normal, Red Blood Cell Morphology Normal Height (Feet): 5 Height (Inches): 4.00 Weight (Pounds): 123 Tracy Holley MD May 24, 2019 11:30
[2019-05-24 12:00] VITALS: BP 120/81
--- NOTE | 2019-05-24 12:15 | NUR ---
*-* INSURANCE *-* ALL AVAILABLE CLINICALS HAVE BEEN FAXED TO: ASHA RANDOLPHM: ARSEN P- [phone] F- [phone]...........REVIEW/CLINICAL
--- NOTE | 2019-05-24 12:23 | NUR ---
CASE MANAGEMENT: REVIEW 05/24/19 SI: PNA; ASTHMA 97.9 84 20 138/90 96% NC 2L WBC 14.2; + OCCULT BL IS: IVF NS @55HR ZITHROMAX PO QD IV CEFTRIAXONE Q24HR HEPARIN SQ Q12HR IV SOLUMEDROL Q8HR PROTONIX PO QD NOVOLOG SQ AC&HS ALBUTEROL HHN Q4HR PROVENTIL HHN Q4HR CEPACOL PO Q2HR/PRN NICODERM TD Q24 PREPARATION H RI TID : 2E TELE UNIT DCP: RETURN HOME WHEN MEDICALLY CLEARED PLAN: WEAN OFF SOLUMEDROL
[2019-05-24] MEDS: Docusate 250mg cap ORAL SCH ×2 (12:48→17:48)
[2019-05-24] MEDS ORDERED: Prep H Ointment 57gm RECTAL PRN (13:00)
--- NOTE | 2019-05-24 14:58 | Infectious Diseases Prog Note ---
Assessment/Plan Assessment/Plan IMPRESSION: 1. Atelectasis with pneumonia in right lower lung. 2. Asthma exacerbation. 3. Nicotine dependence. 4. rectal bleeding due to hemorrhoids RECOMMENDATION: Continue ceftriaxone and azithromycin Subjective ROS Limited/Unobtainable: No Constitutional: Reports: other - feeling better; Denies: fever Respiratory: Reports: shortness of breath, productive cough Gastrointestinal/Abdominal: Reports: blood in stool Genitourinary: Reports: no symptoms Allergies: Coded Allergies: No Known Allergies (Unverified , 03/24/18) Objective Vital Signs Last 24 Hour Vital Signs Date Time Temp Pulse Resp B/P (MAP) Pulse Ox O2 Delivery O2 Flow Rate FiO2 05/24/19 12:12 86 20 100 Nasal Cannula 2.0 28 85 16 98 05/24/19 09:00 Nasal Cannula 2.0 05/24/19 08:33 97 Nasal Cannula 2.0 28 05/24/19 08:31 99 20 99 Nasal Cannula 2.0 28 84 20 97 05/24/19 08:00 95 05/24/19 08:00 97.9 84 20 138/90 (106) 96 05/24/19 04:00 96 05/24/19 04:00 98.1 93 18 114/74 (87) 100 05/24/19 03:45 101 20 98 Nasal Cannula 2.0 05/24/19 03:35 93 20 94 Nasal Cannula 2.0 28 05/24/19 00:00 98.2 95 18 133/90 (104) 99 05/24/19 00:00 100 05/23/19 23:49 94 20 99 Nasal Cannula 2.0 28 05/23/19 23:39 92 20 94 Nasal Cannula 2.0 28 05/23/19 21:00 Nasal Cannula 2.0 05/23/19 20:00 106 05/23/19 20:00 98.5 109 18 121/73 (89) 97 05/23/19 19:37 110 20 97 Nasal Cannula 2.0 28 05/23/19 19:27 113 20 97 Nasal Cannula 2.0 28 05/23/19 16:00 98.2 108 21 126/77 (93) 98 05/23/19 16:00 117 05/23/19 15:00 94 18 99 Nasal Cannula 2.0 28 92 18 97 Height (Feet): 5 Height (Inches): 4.00 Weight (Pounds): 123 General Appearance: no acute distress HEENT: mucous membranes moist Respiratory/Chest: decreased breath sounds, other - oxygen by nasal cannula Cardiovascular: normal rate Abdomen: soft, non tender Extremities: no edema Neurologic/Psychiatric: alert, oriented x 3, responsive Microbiology Date/Time Source Procedure Growth Status 05/22/19 18:40 Blood Blood Culture - Preliminary NO GROWTH AFTER 24 HOURS Resulted 05/22/19 18:25 Blood Blood Culture - Preliminary NO GROWTH AFTER 24 HOURS Resulted 05/22/19 17:30 Nasal Nares - Final Complete 05/22/19 17:30 Nasal Nares - Final Complete Laboratory Tests Test 05/23/19 17:15 05/24/19 06:09 White Blood Count 13.1 K/UL (4.8-10.8) #H 14.2 K/UL (4.8-10.8) H Red Blood Count 4.81 M/UL (4.70-6.10) 4.87 M/UL (4.70-6.10) Hemoglobin 15.1 G/DL (14.2-18.0) 15.1 G/DL (14.2-18.0) Hematocrit 44.9 % (42.0-52.0) 46.0 % (42.0-52.0) Mean Corpuscular Volume 93 FL (80-99) 94 FL (80-99) Mean Corpuscular Hemoglobin 31.4 PG (27.0-31.0) H 31.0 PG (27.0-31.0) Mean Corpuscular Hemoglobin Concent 33.6 G/DL (32.0-36.0) 32.9 G/DL (32.0-36.0) Red Cell Distribution Width 12.1 % (11.6-14.8) 13.0 % (11.6-14.8) Platelet Count 229 K/UL (150-450) 239 K/UL (150-450) Mean Platelet Volume 5.3 FL (6.5-10.1) L 5.3 FL (6.5-10.1) L Neutrophils (%) (Auto) % (45.0-75.0) % (45.0-75.0) Lymphocytes (%) (Auto) % (20.0-45.0) % (20.0-45.0) Monocytes (%) (Auto) % (1.0-10.0) % (1.0-10.0) Eosinophils (%) (Auto) % (0.0-3.0) % (0.0-3.0) Basophils (%) (Auto) % (0.0-2.0) % (0.0-2.0) Differential Total Cells Counted 100 100 Neutrophils % (Manual) 89 % (45-75) H 93 % (45-75) H Lymphocytes % (Manual) 4 % (20-45) L 4 % (20-45) L Monocytes % (Manual) 5 % (1-10) 3 % (1-10) Eosinophils % (Manual) 0 % (0-3) 0 % (0-3) Basophils % (Manual) 0 % (0-2) 0 % (0-2) Band Neutrophils 2 % (0-8) 0 % (0-8) Platelet Estimate Adequate Adequate Platelet Morphology Normal Normal Red Blood Cell Morphology Normal Normal Current Medications Medications (Trade) Dose Ordered Sig/Niki Route PRN Reason Start Time Stop Time Status Last Admin Dose Admin Acetaminophen (Tylenol) 650 mg Q4H PRN ORAL Mild Pain/Temp > 100.5 05/22/19 21:30 06/21/19 21:29 Albuterol Sulfate (Proventil) 2.5 mg Q4HRT HHN 05/23/19 03:00 05/28/19 02:59 05/24/19 12:02 Albuterol/ Ipratropium (Albuterol/ Ipratropium) 3 ml Q4H PRN HHN Shortness of Breath 05/22/19 21:30 05/27/19 21:29 05/23/19 00:14 Azithromycin (Zithromax) 500 mg DAILY ORAL 05/23/19 09:00 05/30/19 08:59 05/24/19 08:28 Ceftriaxone Sodium 1 gm/ Dextrose 55 ml @ 110 mls/hr Q24H IVPB 05/23/19 08:00 05/30/19 07:59 05/24/19 08:28 Cetylpyridinium Chloride (Cepacol) 1 lozg Q2H PRN GUERA sore throat 05/23/19 13:00 06/22/19 12:59 05/24/19 09:41 Dextrose (Dextrose 50%) 25 ml Q30M PRN IV Hypoglycemia 05/23/19 13:00 06/22/19 12:59 Dextrose (Dextrose 50%) 50 ml Q30M PRN IV Hypoglycemia 05/23/19 13:00 06/22/19 12:59 Docusate Sodium (Colace) 250 mg BID ORAL 05/24/19 11:30 06/23/19 11:29 05/24/19 12:48 Guaifenesin (Robitussin) 100 mg Q4H PRN ORAL For Cough 05/23/19 13:00 06/22/19 12:59 05/23/19 13:13 Heparin Sodium (Porcine) (Heparin 5000 units/ml) 5,000 units EVERY 12 HOURS SUBQ 05/23/19 09:00 06/22/19 08:59 05/23/19 08:54 Insulin Aspart (NovoLOG) BEFORE MEALS AND HS SUBQ 05/23/19 16:30 06/22/19 16:29 05/23/19 21:24 Methylprednisolone Sodium Succinate (Solu-MEDROL) 40 mg TWICE A DAY IVP 05/24/19 18:00 06/22/19 05:59 Nicotine (Nicoderm) 1 patch Q24H TDERMAL 05/23/19 13:00 06/22/19 12:59 05/24/19 12:48 Ondansetron HCl (Zofran) 4 mg Q6H PRN IVP Nausea & Vomiting 05/22/19 21:30 06/21/19 21:29 Pantoprazole (Protonix) 40 mg DAILY ORAL 05/24/19 09:00 06/23/19 08:59 05/24/19 08:28 Phenyleph/Shark Oil/Glycerin/ Petrol (Preparation H) 1 applic THREE TIMES A DAY PRN RECTAL Hemorroidal Pain 05/24/19 13:00 06/23/19 12:59 Sodium Chloride 1,000 ml @ 55 mls/hr [id number] IV 05/22/19 21:30 06/21/19 21:29 05/24/19 09:42 Omi Andres MD May 24, 2019 14:58
[2019-05-24 16:00] VITALS: BP 133/91
[2019-05-24] MEDS: guaiFENesin 100mg/5ml Liq ud ORAL PRN ×2 (16:12→20:19)
[2019-05-24] MEDS: Solu-MEDROL 40mg Inj IVP SCH (17:47)
[2019-05-24 20:00] VITALS: BP 121/72
--- NOTE | 2019-05-24 23:15 | NUR ---
HAND-OFF: Report given to Hawa/RN, Patient in stable condition. Endorsed plan of care.
[2019-05-25] VITALS: BP 132/82
--- NOTE | 2019-05-25 00:02 | NUR ---
NURSE NOTES: Received pt from AVERY Gramajo. Pt asleep. Bed in lowest position. Call light within reach. WQill continue to monitor.
[2019-05-25] MEDS: Albuterol ud Inhalation HHN SCH ×6 (03:12→23:23)
[2019-05-25 04:00] VITALS: BP 131/63
[2019-05-25] MEDS: NovoLOG Insulin Flexpen SUBQ SCH ×4 (06:11→21:00)
--- NOTE | 2019-05-25 07:25 | NUR ---
NURSE NOTES: Nurse report given by AVERY Shaikh. Patient's awake in bed, no s/s of distress or SOB, denies pain, AO x 4. Bed low and locked, call light within reach. IV site is running fluid, no s/s of infiltration or tenderness, patent and asymptomatic. Will continue to monitor.
--- NOTE | 2019-05-25 07:33 | NUR ---
HAND-OFF: Report given to AVERY Luna. Pt stable.
[2019-05-25 08:00] VITALS: BP 129/88
[2019-05-25] MEDS: Solu-MEDROL 40mg Inj IVP SCH ×2 (08:25→18:29)
[2019-05-25] MEDS: cefTRIAXone 1 GM in D5W 55 ML IVPB SCH (08:25)
[2019-05-25] MEDS: Docusate 250mg cap ORAL SCH ×2 (08:25→18:29)
[2019-05-25] MEDS: Heparin 5000 units/ml inj SUBQ SCH ×2 (08:26→20:53)
[2019-05-25] MEDS: Azithromycin 250mg tab ORAL SCH (08:26)
--- NOTE | 2019-05-25 10:49 | NUR ---
CASE MANAGEMENT:REVIEW 05/25/19 SI: PNA. ASTHMA EXACERBATION. (LESS SOB) RECTAL BLEEDING D/T HEMORRHOIDS 97.6 92 18 128/88 97% ON 2L/NC IS: IV SOLUMEDROL 40MG Q12 IV ROCEPHIN Q24 AZITHROMAX PO QD ALBUTEROL HHN Q4HRS RTC IVF@55/HR : TELEMETRY STATUS DCP: FROM HOME
--- NOTE | 2019-05-25 11:03 | Infectious Diseases Prog Note ---
Assessment/Plan Assessment/Plan IMPRESSION: 1. Atelectasis with pneumonia in right lower lung. 2. Asthma exacerbation. 3. Nicotine dependence. 4. rectal bleeding due to hemorrhoids RECOMMENDATION: Continue ceftriaxone and azithromycin Subjective ROS Limited/Unobtainable: No Constitutional: Reports: no symptoms Respiratory: Reports: shortness of breath, productive cough Gastrointestinal/Abdominal: Reports: no symptoms Genitourinary: Reports: no symptoms Neurologic: Reports: no symptoms Allergies: Coded Allergies: No Known Allergies (Unverified , 03/24/18) Objective Vital Signs Last 24 Hour Vital Signs Date Time Temp Pulse Resp B/P (MAP) Pulse Ox O2 Delivery O2 Flow Rate FiO2 05/25/19 09:00 Nasal Cannula 2.0 05/25/19 08:00 92 05/25/19 08:00 97.6 85 18 129/88 (102) 97 05/25/19 07:46 87 20 100 Nasal Cannula 2.0 28 81 22 98 05/25/19 07:45 98 Room Air 21 05/25/19 04:00 98.3 80 21 131/63 (85) 100 05/25/19 04:00 77 05/25/19 03:16 93 20 100 Nasal Cannula 2.0 28 91 20 98 05/25/19 00:00 84 05/25/19 00:00 98.0 96 23 132/82 (99) 98 05/24/19 23:42 94 20 99 Nasal Cannula 2.0 28 88 20 97 05/24/19 21:00 Nasal Cannula 2.0 05/24/19 20:00 68 05/24/19 20:00 97.9 86 21 121/72 (88) 98 05/24/19 19:38 89 20 100 Nasal Cannula 2.0 28 86 20 98 05/24/19 19:38 98 Nasal Cannula 2.0 28 05/24/19 16:00 98.1 72 20 133/91 (105) 93 05/24/19 16:00 96 05/24/19 15:40 92 20 100 Nasal Cannula 2.0 28 95 20 97 05/24/19 12:12 86 20 100 Nasal Cannula 2.0 28 85 16 98 05/24/19 12:00 97.7 83 18 120/81 (94) 100 05/24/19 12:00 93 Height (Feet): 5 Height (Inches): 4.00 Weight (Pounds): 123 General Appearance: no acute distress HEENT: mucous membranes moist Respiratory/Chest: decreased breath sounds Cardiovascular: normal rate Abdomen: soft, non tender Extremities: no edema Neurologic/Psychiatric: alert, oriented x 3, responsive Microbiology Date/Time Source Procedure Growth Status 05/22/19 18:40 Blood Blood Culture - Preliminary NO GROWTH AFTER 48 HOURS Resulted 05/22/19 18:25 Blood Blood Culture - Preliminary NO GROWTH AFTER 48 HOURS Resulted 05/22/19 17:30 Nasal Nares - Final Complete 05/22/19 17:30 Nasal Nares - Final Complete Current Medications Medications (Trade) Dose Ordered Sig/Niki Route PRN Reason Start Time Stop Time Status Last Admin Dose Admin Acetaminophen (Tylenol) 650 mg Q4H PRN ORAL Mild Pain/Temp > 100.5 05/22/19 21:30 06/21/19 21:29 Albuterol Sulfate (Proventil) 2.5 mg Q4HRT HHN 05/23/19 03:00 05/28/19 02:59 05/25/19 07:43 Albuterol/ Ipratropium (Albuterol/ Ipratropium) 3 ml Q4H PRN HHN Shortness of Breath 05/22/19 21:30 05/27/19 21:29 05/23/19 00:14 Azithromycin (Zithromax) 500 mg DAILY ORAL 05/23/19 09:00 05/30/19 08:59 05/25/19 08:26 Ceftriaxone Sodium 1 gm/ Dextrose 55 ml @ 110 mls/hr Q24H IVPB 05/23/19 08:00 05/30/19 07:59 05/25/19 08:25 Cetylpyridinium Chloride (Cepacol) 1 lozg Q2H PRN GUERA sore throat 05/23/19 13:00 06/22/19 12:59 05/25/19 06:09 Dextrose (Dextrose 50%) 25 ml Q30M PRN IV Hypoglycemia 05/23/19 13:00 06/22/19 12:59 Dextrose (Dextrose 50%) 50 ml Q30M PRN IV Hypoglycemia 05/23/19 13:00 06/22/19 12:59 Docusate Sodium (Colace) 250 mg BID ORAL 05/24/19 11:30 06/23/19 11:29 05/25/19 08:25 Guaifenesin (Robitussin) 100 mg Q4H PRN ORAL For Cough 05/23/19 13:00 06/22/19 12:59 05/24/19 20:19 Heparin Sodium (Porcine) (Heparin 5000 units/ml) 5,000 units EVERY 12 HOURS SUBQ 05/23/19 09:00 06/22/19 08:59 05/25/19 08:26 Insulin Aspart (NovoLOG) BEFORE MEALS AND HS SUBQ 05/23/19 16:30 06/22/19 16:29 05/24/19 20:36 Methylprednisolone Sodium Succinate (Solu-MEDROL) 40 mg TWICE A DAY IVP 05/24/19 18:00 06/22/19 05:59 05/25/19 08:25 Nicotine (Nicoderm) 1 patch Q24H TDERMAL 05/23/19 13:00 06/22/19 12:59 05/24/19 12:48 Ondansetron HCl (Zofran) 4 mg Q6H PRN IVP Nausea & Vomiting 05/22/19 21:30 06/21/19 21:29 Pantoprazole (Protonix) 40 mg DAILY ORAL 05/24/19 09:00 06/23/19 08:59 05/25/19 08:25 Phenyleph/Shark Oil/Glycerin/ Petrol (Preparation H) 1 applic THREE TIMES A DAY PRN RECTAL Hemorroidal Pain 05/24/19 13:00 06/23/19 12:59 Sodium Chloride 1,000 ml @ 55 mls/hr [id number] IV 05/22/19 21:30 06/21/19 21:29 05/25/19 04:32 Omi Andres MD May 25, 2019 11:03
--- NOTE | 2019-05-25 11:54 | History and Physical Report ---
DATE OF ADMISSION: 05/22/2019 HISTORY OF PRESENT ILLNESS: The patient comes with asthma, pneumonia, elevated WBC as well as low potassium. The patient complains of 1 day history of shortness of breath and wheezing and productive cough. He is admitted for asthma exacerbation. Denies orthopnea. Denies nausea, vomiting, or diarrhea. Denies chills. Denies chest pain. The patient also has been admitted for low potassium and rule out pneumonia as well. The patient also has a cough and blood in the stool. Admitted for those reasons as well. PAST MEDICAL HISTORY: Significant for asthma, constipation. PAST SURGICAL HISTORY: None. MEDICATIONS: Taking inhalers. ALLERGIES: No known allergies. FAMILY HISTORY: Noncontributory. SOCIAL HISTORY: He has history of smoking, history of drug and alcohol abuse. REVIEW OF SYSTEMS: HEENT: Denies headaches. RESPIRATORY: Reports shortness of breath, asthma, wheezing, and productive cough for one day. CARDIOVASCULAR: Denies chest pain. No orthopnea. GASTROINTESTINAL: No nausea, vomiting, or diarrhea. EXTREMITIES: Denies pain in lower extremities. CENTRAL NERVOUS SYSTEM: Denies change in vision or speech pattern. PHYSICAL EXAMINATION: VITAL SIGNS: Temperature is 97.7, pulse 93, blood pressure 120/81. HEENT: PERRLA. NECK: Supple. No lymphadenopathy. CHEST: Bibasilar wheezing. CARDIOVASCULAR: Regular rate and rhythm. No murmurs or extra sounds. GASTROINTESTINAL: Soft, nontender, nondistended. No organomegaly. EXTREMITIES: No edema. Moves all four extremities. CENTRAL NERVOUS SYSTEM: Sensory intact to light touch. Reflexes equal on both sides. Moves all four extremities. LABORATORY DATA: WBC of 9.3, hemoglobin 15.3, platelets of 207. Sodium 144, potassium 3.5, BUN of 14, creatinine 0.9. ASSESSMENT AND PLAN: GI bleed, respiratory insufficiency, asthma exacerbation, electrolyte imbalance, hypokalemia. I have asked Dr. Westfall, Dr. Omi Andres, Dr. Ren, and Dr. Holley see the patient to help with the management of the above-mentioned diagnoses and symptoms and abnormalities. Josep Agrawal M.D. DR: UTE JOB#: [id number] CC:
--- NOTE | 2019-05-25 11:54 | Consultation ---
DATE OF CONSULTATION: 05/24/2019 CHIEF COMPLAINT: I was asked to see this patient by Dr. Josep Agrawal for evaluation of hematochezia. HISTORY OF PRESENT ILLNESS: The patient is a 38-year-old man admitted with asthma exacerbation. He has had a longstanding history of asthma and he also smokes. He has had previous attacks and admissions for asthma. He is now admitted for the same and is being treated and feels better. He also has had some intermittent hematochezia for past 6 months. He states that he had a colonoscopy about three months ago at [facility] which showed only hemorrhoids. His bowel movements are somewhat regular. PAST MEDICAL HISTORY: History of asthma, nicotine dependence. ALLERGIES: None. FAMILY HISTORY: Myocardial infarction in the mother. SOCIAL HISTORY: The patient is single. He has no children. He smokes but does not drink alcohol. REVIEW OF SYSTEMS: Otherwise negative. PHYSICAL EXAMINATION: GENERAL: The patient is well-developed and well-nourished man in no distress. HEENT: Normocephalic and atraumatic. Sclerae anicteric. Oropharynx clear. NECK: Supple. CHEST: Revealed bilateral scattered wheezing. CARDIOVASCULAR: Regular rate. ABDOMEN: Soft, flat with good bowel sounds. There is no organomegaly. RECTAL: Normal external exam. EXTREMITIES: Revealed no edema. LABORATORY DATA: Noted. ASSESSMENT: The patient presents with hematochezia which has been going on for about 6 months. The patient already had a colonoscopy about 2 to 3 months ago which according to the patient only showed hemorrhoids. As such, he can be treated for hemorrhoids now with hemorrhoidal creams as well as stool softeners. An attempt can be made to obtain outside colonoscopy but for the time being, no repeat examination is necessary. In addition, if the patient's symptoms persist, then he may need or banding of the hemorrhoids. RECOMMENDATIONS: Per above discussion and per orders written in the chart. Thank you for asking me to participate in care this patient. Tracy Holley M.D. DR: Angie JOB#: [id number] CC:
[2019-05-25 12:00] VITALS: BP 139/99
--- NOTE | 2019-05-25 12:30 | NUR ---
NURSE NOTES: Made Dr. Woods awared that patient's taking Ambilify Maintena 400mg for his depression from [facility] per Dr. Turner's order. No new order at this time.
--- NOTE | 2019-05-25 12:51 | NUR ---
*-* INSURANCE *-* ALL AVAILABLE CLINICALS HAVE BEEN FAXED TO: [facility] NCM: ARSEN P- [phone] F- [phone]...........REVIEW/CLINICAL Addendum: 05/25/19 at 1307 by SAUL MOORE CM UNABLE TO REACH NCM:ARSEN LEFT A VOICEMAIL TO CALL BACK TO CONFIRM CLINICALS HAVE BEEN RECEIVED.
[2019-05-25 16:00] VITALS: BP 126/78
--- NOTE | 2019-05-25 17:45 | General Progress Note ---
Assessment/Plan Assessment/Plan: Assessment - Hematochezia - hemorrhoids - has had a recent colonoscopy at [facility] - Asthma Recommendations - stool softener - preparation H - no plans for colonoscopy - get recent colonoscopy records from [facility] Subjective Allergies: Coded Allergies: No Known Allergies (Unverified , 03/24/18) Subjective Feels Same no abd complaints Objective Last 24 Hour Vital Signs Date Time Temp Pulse Resp B/P (MAP) Pulse Ox O2 Delivery O2 Flow Rate FiO2 05/25/19 16:00 98.8 84 20 126/78 (94) 97 05/25/19 16:00 89 05/25/19 15:15 91 22 100 Nasal Cannula 2.0 28 92 24 96 05/25/19 12:00 84 05/25/19 12:00 96.1 85 20 139/99 (112) 97 05/25/19 11:24 84 20 100 Nasal Cannula 2.0 28 86 20 99 05/25/19 09:00 Nasal Cannula 2.0 05/25/19 08:00 92 05/25/19 08:00 97.6 85 18 129/88 (102) 97 05/25/19 07:46 87 20 100 Nasal Cannula 2.0 28 81 22 98 05/25/19 07:45 98 Room Air 21 05/25/19 04:00 98.3 80 21 131/63 (85) 100 05/25/19 04:00 77 05/25/19 03:16 93 20 100 Nasal Cannula 2.0 28 91 20 98 05/25/19 00:00 84 05/25/19 00:00 98.0 96 23 132/82 (99) 98 05/24/19 23:42 94 20 99 Nasal Cannula 2.0 28 88 20 97 05/24/19 21:00 Nasal Cannula 2.0 05/24/19 20:00 68 05/24/19 20:00 97.9 86 21 121/72 (88) 98 05/24/19 19:38 89 20 100 Nasal Cannula 2.0 28 86 20 98 05/24/19 19:38 98 Nasal Cannula 2.0 28 Intake and Output 05/24/19 05/25/19 18:59 06:59 Intake Total 300 ml 300 ml Balance 300 ml 300 ml Intake Oral 300 ml 300 ml # Voids 1 # Bowel Movements 2 Height (Feet): 5 Height (Inches): 4.00 Weight (Pounds): 123 Objective Thin WM NCAT supple CTA RRR abd soft no edema non focal Tracy Holley MD May 25, 2019 17:45
--- NOTE | 2019-05-25 19:41 | Pulmonology Progress Note ---
Assessment/Plan Assessment/Plan Pulmonary Progress Note HPI Patient is a 38 year old man with history of Asthma admitted with Asthma exacerbation and Pneumonia, complained of cough and wheezing, malaise, cough is productive of yellowish phlegm. States that he does have asthma and states that this triggered his asthma. 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 Did not receive a flu shot this year. Denies recent travel. No other aggravating relieving factors. Denies any other associated symptoms Less SOB Physical Exam Vital Signs Noted General Appearance: alert, GCS 15, non-toxic, no distress Head: normocephalic, atraumatic Eyes: bilateral eye normal inspection, bilateral eye PERRL ENT: moist mm, no LN Respiratory: normal breath sounds Cardiovascular: Normal HS1, HS2, no edema, tachycardia Abdomen: normal bowel sounds, non tender, soft, non-distended, no guarding, no rebound Extremities: well perfused, no rashes Neurologic: alert, oriented x3, responsive, motor strength/tone normal, sensory intact, speech normal Impression: Asthma exacerbation Underdeveloped lung Pneumonia Plan: IV Ceftriaxone, PO Azithromycin Solumedrol - wean as tolerated HHN Oxygen PRN PPX Monitor labs Labs noted Test 05/22/19 17:30 05/22/19 18:25 05/22/19 18:30 White Blood Count 9.3 K/UL (4.8-10.8) Red Blood Count 4.89 M/UL (4.70-6.10) Hemoglobin 15.3 G/DL (14.2-18.0) Hematocrit 46.0 % (42.0-52.0) Mean Corpuscular Volume 94 FL (80-99) Mean Corpuscular Hemoglobin 31.3 PG (27.0-31.0) Mean Corpuscular Hemoglobin Concent 33.2 G/DL (32.0-36.0) Red Cell Distribution Width 11.8 % (11.6-14.8) Platelet Count 207 K/UL (150-450) Mean Platelet Volume 5.6 FL (6.5-10.1) Neutrophils (%) (Auto) 67.1 % (45.0-75.0) Lymphocytes (%) (Auto) 21.0 % (20.0-45.0) Monocytes (%) (Auto) 7.8 % (1.0-10.0) Eosinophils (%) (Auto) 3.3 % (0.0-3.0) Basophils (%) (Auto) 0.8 % (0.0-2.0) Sodium Level 144 MMOL/L (136-145) Potassium Level 3.5 MMOL/L (3.5-5.1) Chloride Level 106 MMOL/L (98-107) Carbon Dioxide Level 27 MMOL/L (21-32) Anion Gap 11 mmol/L (5-15) Blood Urea Nitrogen 14 mg/dL (7-18) Creatinine 0.9 MG/DL (0.55-1.30) Estimat Glomerular Filtration Rate > 60 mL/min (>60) Glucose Level 104 MG/DL (74-106) Calcium Level 9.0 MG/DL (8.5-10.1) Total Bilirubin 0.6 MG/DL (0.2-1.0) Aspartate Amino Transf (AST/SGOT) 21 U/L (15-37) Alanine Aminotransferase (ALT/SGPT) 26 U/L (12-78) Alkaline Phosphatase 110 U/L (46-116) Total Protein 6.6 G/DL (6.4-8.2) Albumin 3.4 G/DL (3.4-5.0) Globulin 3.2 g/dL Albumin/Globulin Ratio 1.1 (1.0-2.7) Lactic Acid Level 2.00 mmol/L (0.4-2.0) Urine Color Yellow Urine Appearance Slightly cloudy Urine pH 5 (4.5-8.0) Urine Specific [place] 1.020 (1.005-1.035) Urine Protein Negative (NEGATIVE) Urine Glucose (UA) Negative (NEGATIVE) Urine Ketones Negative (NEGATIVE) Urine Blood Negative (NEGATIVE) Urine Nitrite Negative (NEGATIVE) Urine Bilirubin Negative (NEGATIVE) Urine Urobilinogen Normal MG/DL (0.0-1.0) Urine Leukocyte Esterase Negative (NEGATIVE) EKG: Rate: normal Rhythm: NSR ST Segments: no acute changes Chest X-Ray: no pneumothorax, other - RLL infiltrate Subjective ROS Limited/Unobtainable: No Allergies: Coded Allergies: No Known Allergies (Unverified , 03/24/18) Objective Last 24 Hour Vital Signs Date Time Temp Pulse Resp B/P (MAP) Pulse Ox O2 Delivery O2 Flow Rate FiO2 05/25/19 19:31 98 Nasal Cannula 2.0 28 05/25/19 19:30 72 18 100 Nasal Cannula 2.0 28 83 20 97 05/25/19 16:00 98.8 84 20 126/78 (94) 97 05/25/19 16:00 89 05/25/19 15:15 91 22 100 Nasal Cannula 2.0 28 92 24 96 05/25/19 12:00 84 05/25/19 12:00 96.1 85 20 139/99 (112) 97 05/25/19 11:24 84 20 100 Nasal Cannula 2.0 28 86 20 99 05/25/19 09:00 Nasal Cannula 2.0 05/25/19 08:00 92 05/25/19 08:00 97.6 85 18 129/88 (102) 97 05/25/19 07:46 87 20 100 Nasal Cannula 2.0 28 81 22 98 05/25/19 07:45 98 Room Air 21 05/25/19 04:00 98.3 80 21 131/63 (85) 100 05/25/19 04:00 77 05/25/19 03:16 93 20 100 Nasal Cannula 2.0 28 91 20 98 05/25/19 00:00 84 05/25/19 00:00 98.0 96 23 132/82 (99) 98 05/24/19 23:42 94 20 99 Nasal Cannula 2.0 28 88 20 97 05/24/19 21:00 Nasal Cannula 2.0 05/24/19 20:00 68 05/24/19 20:00 97.9 86 21 121/72 (88) 98 Intake and Output 05/24/19 05/25/19 18:59 06:59 Intake Total 300 ml 300 ml Balance 300 ml 300 ml Intake Oral 300 ml 300 ml # Voids 1 # Bowel Movements 2 Current Medications Medications (Trade) Dose Ordered Sig/Niki Route PRN Reason Start Time Stop Time Status Last Admin Dose Admin Acetaminophen (Tylenol) 650 mg Q4H PRN ORAL Mild Pain/Temp > 100.5 05/22/19 21:30 06/21/19 21:29 Albuterol Sulfate (Proventil) 2.5 mg Q4HRT HHN 05/23/19 03:00 05/28/19 02:59 05/25/19 19:28 Albuterol/ Ipratropium (Albuterol/ Ipratropium) 3 ml Q4H PRN HHN Shortness of Breath 05/22/19 21:30 05/27/19 21:29 05/23/19 00:14 Azithromycin (Zithromax) 500 mg DAILY ORAL 05/23/19 09:00 05/30/19 08:59 05/25/19 08:26 Ceftriaxone Sodium 1 gm/ Dextrose 55 ml @ 110 mls/hr Q24H IVPB 05/23/19 08:00 05/30/19 07:59 05/25/19 08:25 Cetylpyridinium Chloride (Cepacol) 1 lozg Q2H PRN GUERA sore throat 05/23/19 13:00 06/22/19 12:59 05/25/19 06:09 Dextrose (Dextrose 50%) 25 ml Q30M PRN IV Hypoglycemia 05/23/19 13:00 06/22/19 12:59 Dextrose (Dextrose 50%) 50 ml Q30M PRN IV Hypoglycemia 05/23/19 13:00 06/22/19 12:59 Docusate Sodium (Colace) 250 mg BID ORAL 05/24/19 11:30 06/23/19 11:29 05/25/19 18:29 Guaifenesin (Robitussin) 100 mg Q4H PRN ORAL For Cough 05/23/19 13:00 06/22/19 12:59 05/24/19 20:19 Heparin Sodium (Porcine) (Heparin 5000 units/ml) 5,000 units EVERY 12 HOURS SUBQ 05/23/19 09:00 06/22/19 08:59 05/25/19 08:26 Insulin Aspart (NovoLOG) BEFORE MEALS AND HS SUBQ 05/23/19 16:30 06/22/19 16:29 05/25/19 16:37 Methylprednisolone Sodium Succinate (Solu-MEDROL) 40 mg TWICE A DAY IVP 05/24/19 18:00 06/22/19 05:59 05/25/19 18:29 Nicotine (Nicoderm) 1 patch Q24H TDERMAL 05/23/19 13:00 06/22/19 12:59 05/25/19 12:43 Non-Formulary Medication (Non-Formulary Med) 1 ea DAILY ORAL 05/26/19 09:00 06/25/19 08:59 UNV Ondansetron HCl (Zofran) 4 mg Q6H PRN IVP Nausea & Vomiting 05/22/19 21:30 06/21/19 21:29 Pantoprazole (Protonix) 40 mg DAILY ORAL 05/24/19 09:00 06/23/19 08:59 05/25/19 08:25 Phenyleph/Shark Oil/Glycerin/ Petrol (Preparation H) 1 applic THREE TIMES A DAY PRN RECTAL Hemorroidal Pain 05/24/19 13:00 06/23/19 12:59 Sodium Chloride 1,000 ml @ 55 mls/hr [id number] IV 05/22/19 21:30 06/21/19 21:29 05/25/19 04:32 Tej Ren MD May 25, 2019 19:41
--- NOTE | 2019-05-25 19:42 | NUR ---
HAND-OFF: Report given to AVERY Shaikh. Plan of care endorsed. Patient's stable.
--- NOTE | 2019-05-25 19:48 | NUR ---
NURSE NOTES: Received pt from AVERY Luna. Pt awake, alert, and talkative. Bed in lowest position. Call light within reach. Will continue to monitor.
[2019-05-25 20:00] VITALS: BP 136/86
--- NOTE | 2019-05-25 21:46 | General Progress Note ---
Assessment/Plan Problem List: (1) Pneumonia ICD Codes: J18.9 - Pneumonia, unspecified organism SNOMED: 007636091 Qualifiers: Qualified Codes: J18.1 - Lobar pneumonia, unspecified organism (2) Asthma ICD Codes: J45.909 - Unspecified asthma, uncomplicated SNOMED: 418090805 Qualifiers: Qualified Codes: J45.909 - Unspecified asthma, uncomplicated Status: progressing Assessment/Plan: asthma is improving vitals stable no wheezing depression psych consult Subjective ROS Limited/Unobtainable: Yes Allergies: Coded Allergies: No Known Allergies (Unverified , 03/24/18) Objective Last 24 Hour Vital Signs Date Time Temp Pulse Resp B/P (MAP) Pulse Ox O2 Delivery O2 Flow Rate FiO2 05/25/19 21:00 Nasal Cannula 2.0 05/25/19 20:00 98.8 80 20 136/86 (103) 97 05/25/19 19:31 98 Nasal Cannula 2.0 28 05/25/19 19:30 72 18 100 Nasal Cannula 2.0 28 83 20 97 05/25/19 16:00 98.8 84 20 126/78 (94) 97 05/25/19 16:00 89 05/25/19 15:15 91 22 100 Nasal Cannula 2.0 28 92 24 96 05/25/19 12:00 84 05/25/19 12:00 96.1 85 20 139/99 (112) 97 05/25/19 11:24 84 20 100 Nasal Cannula 2.0 28 86 20 99 05/25/19 09:00 Nasal Cannula 2.0 05/25/19 08:00 92 05/25/19 08:00 97.6 85 18 129/88 (102) 97 05/25/19 07:46 87 20 100 Nasal Cannula 2.0 28 81 22 98 05/25/19 07:45 98 Room Air 21 05/25/19 04:00 98.3 80 21 131/63 (85) 100 05/25/19 04:00 77 05/25/19 03:16 93 20 100 Nasal Cannula 2.0 28 91 20 98 05/25/19 00:00 84 05/25/19 00:00 98.0 96 23 132/82 (99) 98 05/24/19 23:42 94 20 99 Nasal Cannula 2.0 28 88 20 97 Intake and Output 05/24/19 05/25/19 18:59 06:59 Intake Total 300 ml 300 ml Balance 300 ml 300 ml Intake Oral 300 ml 300 ml # Voids 1 # Bowel Movements 2 Height (Feet): 5 Height (Inches): 4.00 Weight (Pounds): 123 Neck: supple Respiratory/Chest: lungs clear Abdomen: soft Josep Agrawal MD May 25, 2019 21:46
--- NOTE | 2019-05-25 22:20 | NUR ---
TRANSFER TO FLOOR: Patient transferred to [facility], per MD. Report given to Chastity. Belongings and medications given to pt. Family and or S/O informed of transfer.
--- NOTE | 2019-05-25 22:30 | NUR ---
NURSE NOTES: PATIENT TRANSFERRED FROM TELE ROOM 210 TO ROOM 420 BED 1 VIA BED IN STABLE CONDITION, AWAKE/ALERT/ORIENTED X4, VERBALLY RESPONSIVE, DENIES PAIN. IV SITE INTACT, NO REDNESS/SWELLING NOTED, TOLERATING IV FLUIDS. NO SIGNS AND SYMPTOMS OF ACUTE CARDIO RESPIRATORY DISTRESS/SHORTNESS OF BREATH, DENIES CHEST PAIN, NO EDEMA NOTED. POSITIVE OCCULT BLOOD DUE TO HEMORRHOIDS, CONTINENT OF B/B, ORIENTATED TO ROOM/ENVIRONMENT. SIDE RAILS UP X2, BED IN LOWEST POSITION FOR SAFETY, ENCOURAGED PATIENT TO UTILIZE CALL LIGHT FOR ASSISTANCE, VERBALIZED UNDERSTANDING. NAD.
--- NOTE | 2019-05-25 23:15 | NUR ---
NURSE NOTES: NOTED PATIENT SLEEPING AT FOOT OF THE BED, STATED "IT IS MORE COMFORTABLE SLEEPING DOWN HERE".
[2019-05-26] VITALS: BP 139/84
--- NOTE | 2019-05-26 00:19 | NUR ---
NURSE NOTES: RESTING WELL, NAD.
[2019-05-26] MEDS ORDERED: Albuterol/Ipratropium 3ml neb HHN PRN (01:30)
--- NOTE | 2019-05-26 02:15 | Consultation ---
DATE OF CONSULTATION: 05/25/2019 CONSULTING PHYSICIAN: Mustapha Woods M.D. HISTORY OF PRESENT ILLNESS: This is a 38-year-old male with a history of asthma and anxiety disorder. The patient has a history of schizophrenia and is on Abilify Sustenna. His medication is not on the hospital formulary and is given once a month. I will attempt to speak to the housing case manager of the patient outside of the hospital and gather more information. Currently, the patient is asymptomatic and is calm and cooperative. No behavior issues noted. The patient is stable. PAST PSYCHIATRIC HISTORY: He has a history of schizoaffective disorder. He has a history of depression. PAST MEDICAL HISTORY: Asthma. ALLERGIES: No known drug allergies. SUBSTANCE ABUSE HISTORY: No known history of illicit drug use or alcohol. MENTAL STATUS EXAMINATION: The patient is alert and oriented times self, place, and situation. Mood is depressed. Affect is constricted. Congruent mood. Thought process is linear and goal oriented. Thought content, no suicidal or homicidal ideation. Cognition is intact. Insight and judgment is fair. ASSESSMENT: AXIS I: Major depressive disorder. Rule out schizoaffective disorder. AXIS II: Deferred. AXIS III: As above. AXIS IV: Low. AXIS V: 50. PLAN: The patient housing case manager. Mustapha Woods M.D. DR: SHEREE JOB#: [id number] CC: NEO
[2019-05-26] MEDS: Albuterol ud Inhalation HHN SCH ×6 (03:00→23:00)
--- NOTE | 2019-05-26 04:08 | NUR ---
NURSE NOTES: REQUESTED NOT TO BE AWAKENED FOR 0400 VITALS-
[2019-05-26] MEDS: NovoLOG Insulin Flexpen SUBQ SCH ×4 (06:30→20:35)
--- NOTE | 2019-05-26 07:35 | NUR ---
NURSE NOTES: received report from NATHANIEL Haywood. Patient in bed, arousable from sleep. Patient requesting a breathing tx. Will call RT. IV intact, patent, and saline locked. Bed in lowest position with call light in reach. Will continue with plan of care.
[2019-05-26 08:00] VITALS: BP 124/70
[2019-05-26] MEDS: Docusate 250mg cap ORAL SCH ×2 (08:51→17:37)
[2019-05-26] MEDS: Azithromycin 250mg tab ORAL SCH (08:51)
[2019-05-26] MEDS: cefTRIAXone 1 GM in D5W 55 ML IVPB SCH (08:52)
[2019-05-26] MEDS ORDERED: Prep H Ointment 57gm RECTAL PRN (09:00)
[2019-05-26] MEDS ORDERED: Solu-MEDROL 40mg Inj IVP SCH (09:00)
--- NOTE | 2019-05-26 09:03 | General Progress Note ---
Assessment/Plan Status: progressing Assessment/Plan: Assessment/Plan Assessment/Plan: Assessment - Hematochezia - hemorrhoids - has had a recent colonoscopy at [facility] - Asthma Recommendations - stool softener - preparation H - no plans for colonoscopy - get recent colonoscopy records from [facility] Subjective Allergies: Coded Allergies: No Known Allergies (Unverified , 03/24/18) Objective Last 24 Hour Vital Signs Date Time Temp Pulse Resp B/P (MAP) Pulse Ox O2 Delivery O2 Flow Rate FiO2 05/26/19 00:00 98.1 86 20 139/84 (102) 97 05/25/19 23:20 80 18 100 Nasal Cannula 2.0 28 82 18 99 05/25/19 21:00 Nasal Cannula 2.0 05/25/19 20:00 98.8 80 20 136/86 (103) 97 05/25/19 19:31 98 Nasal Cannula 2.0 28 05/25/19 19:30 72 18 100 Nasal Cannula 2.0 28 83 20 97 05/25/19 16:00 98.8 84 20 126/78 (94) 97 05/25/19 16:00 89 05/25/19 15:15 91 22 100 Nasal Cannula 2.0 28 92 24 96 05/25/19 12:00 84 05/25/19 12:00 96.1 85 20 139/99 (112) 97 05/25/19 11:24 84 20 100 Nasal Cannula 2.0 28 86 20 99 Intake and Output 05/25/19 05/26/19 19:00 07:00 Intake Total 470 ml 745 ml Balance 470 ml 745 ml Intake Oral 470 ml 360 ml IV Total 385 ml # Voids 3 2 Height (Feet): 5 Height (Inches): 4.00 Weight (Pounds): 123 General Appearance: alert EENT: normal ENT inspection Neck: supple Cardiovascular: normal rate Respiratory/Chest: decreased breath sounds Abdomen: normal bowel sounds, non tender, soft Extremities: non-tender Jason Shen MD May 26, 2019 09:03
[2019-05-26] MEDS: Heparin 5000 units/ml inj SUBQ SCH ×3 (09:05→20:35)
[2019-05-26 12:00] VITALS: BP 146/83
--- NOTE | 2019-05-26 12:27 | NUR ---
CASE MANAGEMENT: REVIEW SI: PNA . ASTHMA EXACERBATION T 97.5 HR 93 RR 20 BP 124/70 SAT 98% NC/2L IS: SOLU MEDROL IV 40MG Q12 ROCEPHIN IV Q24 ZITHROMAX PO QD ALBUTEROL HHN Q4HRS COLACE PO BID IVF @ 55/HR MED/SURG STATUS DCP: PATIENT IS FROM HOME
--- NOTE | 2019-05-26 13:47 | Pulmonology Progress Note ---
Assessment/Plan Assessment/Plan Pulmonary Progress Note HPI Patient is a 38 year old man with history of Asthma admitted with Asthma exacerbation and Pneumonia, complained of cough and wheezing, malaise, cough is productive of yellowish phlegm. States that he does have asthma and states that this triggered his asthma. 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 Did not receive a flu shot this year. Denies recent travel. No other aggravating relieving factors. Denies any other associated symptoms Less SOB Physical Exam Vital Signs Noted General Appearance: alert, GCS 15, non-toxic, no distress Head: normocephalic, atraumatic Eyes: bilateral eye normal inspection, bilateral eye PERRL ENT: moist mm, no LN Respiratory: normal breath sounds Cardiovascular: Normal HS1, HS2, no edema, tachycardia Abdomen: normal bowel sounds, non tender, soft, non-distended, no guarding, no rebound Extremities: well perfused, no rashes Neurologic: alert, oriented x3, responsive, motor strength/tone normal, sensory intact, speech normal Impression: Asthma exacerbation Underdeveloped lung Pneumonia Plan: IV Ceftriaxone, PO Azithromycin Solumedrol - wean as tolerated HHN Oxygen PRN PPX Monitor labs Labs noted Test 05/22/19 17:30 05/22/19 18:25 05/22/19 18:30 White Blood Count 9.3 K/UL (4.8-10.8) Red Blood Count 4.89 M/UL (4.70-6.10) Hemoglobin 15.3 G/DL (14.2-18.0) Hematocrit 46.0 % (42.0-52.0) Mean Corpuscular Volume 94 FL (80-99) Mean Corpuscular Hemoglobin 31.3 PG (27.0-31.0) Mean Corpuscular Hemoglobin Concent 33.2 G/DL (32.0-36.0) Red Cell Distribution Width 11.8 % (11.6-14.8) Platelet Count 207 K/UL (150-450) Mean Platelet Volume 5.6 FL (6.5-10.1) Neutrophils (%) (Auto) 67.1 % (45.0-75.0) Lymphocytes (%) (Auto) 21.0 % (20.0-45.0) Monocytes (%) (Auto) 7.8 % (1.0-10.0) Eosinophils (%) (Auto) 3.3 % (0.0-3.0) Basophils (%) (Auto) 0.8 % (0.0-2.0) Sodium Level 144 MMOL/L (136-145) Potassium Level 3.5 MMOL/L (3.5-5.1) Chloride Level 106 MMOL/L (98-107) Carbon Dioxide Level 27 MMOL/L (21-32) Anion Gap 11 mmol/L (5-15) Blood Urea Nitrogen 14 mg/dL (7-18) Creatinine 0.9 MG/DL (0.55-1.30) Estimat Glomerular Filtration Rate > 60 mL/min (>60) Glucose Level 104 MG/DL (74-106) Calcium Level 9.0 MG/DL (8.5-10.1) Total Bilirubin 0.6 MG/DL (0.2-1.0) Aspartate Amino Transf (AST/SGOT) 21 U/L (15-37) Alanine Aminotransferase (ALT/SGPT) 26 U/L (12-78) Alkaline Phosphatase 110 U/L (46-116) Total Protein 6.6 G/DL (6.4-8.2) Albumin 3.4 G/DL (3.4-5.0) Globulin 3.2 g/dL Albumin/Globulin Ratio 1.1 (1.0-2.7) Lactic Acid Level 2.00 mmol/L (0.4-2.0) Urine Color Yellow Urine Appearance Slightly cloudy Urine pH 5 (4.5-8.0) Urine Specific [place] 1.020 (1.005-1.035) Urine Protein Negative (NEGATIVE) Urine Glucose (UA) Negative (NEGATIVE) Urine Ketones Negative (NEGATIVE) Urine Blood Negative (NEGATIVE) Urine Nitrite Negative (NEGATIVE) Urine Bilirubin Negative (NEGATIVE) Urine Urobilinogen Normal MG/DL (0.0-1.0) Urine Leukocyte Esterase Negative (NEGATIVE) EKG: Rate: normal Rhythm: NSR ST Segments: no acute changes Chest X-Ray: 1. Limited examination due to patient rotation. 2. Pulmonary vascular congestion with right basilar airspace opacity which may represent atelectasis but pneumonia should be excluded Subjective ROS Limited/Unobtainable: No Allergies: Coded Allergies: No Known Allergies (Unverified , 03/24/18) Objective Last 24 Hour Vital Signs Date Time Temp Pulse Resp B/P (MAP) Pulse Ox O2 Delivery O2 Flow Rate FiO2 05/26/19 12:13 77 16 100 Nasal Cannula 2.0 28 95 16 99 05/26/19 08:55 98 Nasal Cannula 2.0 28 05/26/19 08:07 79 16 100 Nasal Cannula 2.0 28 82 18 99 05/26/19 08:00 97.5 93 20 124/70 (88) 98 05/26/19 00:00 98.1 86 20 139/84 (102) 97 05/25/19 23:20 80 18 100 Nasal Cannula 2.0 28 82 18 99 05/25/19 21:00 Nasal Cannula 2.0 05/25/19 20:00 98.8 80 20 136/86 (103) 97 05/25/19 19:31 98 Nasal Cannula 2.0 28 05/25/19 19:30 72 18 100 Nasal Cannula 2.0 28 83 20 97 05/25/19 16:00 98.8 84 20 126/78 (94) 97 05/25/19 16:00 89 05/25/19 15:15 91 22 100 Nasal Cannula 2.0 28 92 24 96 Intake and Output 05/25/19 05/26/19 19:00 07:00 Intake Total 470 ml 745 ml Balance 470 ml 745 ml Intake Oral 470 ml 360 ml IV Total 385 ml # Voids 3 2 Current Medications Medications (Trade) Dose Ordered Sig/Niki Route PRN Reason Start Time Stop Time Status Last Admin Dose Admin Acetaminophen (Tylenol) 650 mg Q4H PRN ORAL Mild Pain/Temp > 100.5 05/26/19 01:30 06/21/19 21:29 Albuterol Sulfate (Proventil) 2.5 mg Q4HRT HHN 05/25/19 23:00 05/28/19 02:59 05/26/19 12:03 Albuterol/ Ipratropium (Albuterol/ Ipratropium) 3 ml Q4H PRN HHN Shortness of Breath 05/26/19 01:30 05/27/19 21:29 05/25/19 23:21 Azithromycin (Zithromax) 500 mg DAILY ORAL 05/26/19 09:00 05/30/19 08:59 05/26/19 08:51 Ceftriaxone Sodium 1 gm/ Dextrose 55 ml @ 110 mls/hr Q24H IVPB 05/26/19 08:00 05/30/19 07:59 05/26/19 08:52 Cetylpyridinium Chloride (Cepacol) 1 lozg Q2H PRN GUERA sore throat 05/25/19 23:00 06/22/19 12:59 Dextrose (Dextrose 50%) 25 ml Q30M PRN IV Hypoglycemia 05/25/19 22:30 06/22/19 12:59 Dextrose (Dextrose 50%) 50 ml Q30M PRN IV Hypoglycemia 05/25/19 22:30 06/22/19 12:59 Docusate Sodium (Colace) 250 mg BID ORAL 05/26/19 09:00 06/23/19 11:29 Guaifenesin (Robitussin) 100 mg Q4H PRN ORAL For Cough 05/26/19 01:00 06/22/19 12:59 Heparin Sodium (Porcine) (Heparin 5000 units/ml) 5,000 units EVERY 12 HOURS SUBQ 05/26/19 09:00 06/22/19 08:59 05/26/19 09:05 Insulin Aspart (NovoLOG) BEFORE MEALS AND HS SUBQ 05/26/19 06:30 06/22/19 16:29 Methylprednisolone Sodium Succinate (Solu-MEDROL) 40 mg TWICE A DAY IVP 05/26/19 09:00 06/22/19 05:59 05/26/19 08:50 Nicotine (Nicoderm) 1 patch Q24H TDERMAL 05/26/19 13:00 06/22/19 12:59 05/26/19 13:30 Ondansetron HCl (Zofran) 4 mg Q6H PRN IVP Nausea & Vomiting 05/26/19 03:30 06/21/19 21:29 Pantoprazole (Protonix) 40 mg DAILY@0630 ORAL 05/26/19 06:30 06/25/19 06:29 05/26/19 05:40 Phenyleph/Shark Oil/Glycerin/ Petrol (Preparation H) 1 applic THREE TIMES A DAY PRN RECTAL Hemorroidal Pain 05/26/19 09:00 06/23/19 12:59 Sodium Chloride 1,000 ml @ 55 mls/hr [id number] IV 05/25/19 22:30 06/21/19 21:29 05/25/19 23:04 Tej Ren MD May 26, 2019 13:47
[2019-05-26 16:00] VITALS: BP 153/81
[2019-05-26] MEDS ORDERED: 1/2 NS 1000ml IV ONE (16:07)
--- NOTE | 2019-05-26 17:59 | Infectious Diseases Prog Note ---
Assessment/Plan Assessment/Plan IMPRESSION: 1. Atelectasis with pneumonia in right lower lung. 2. Asthma exacerbation. 3. Nicotine dependence. 4. rectal bleeding due to hemorrhoids RECOMMENDATION: Continue ceftriaxone and azithromycin Subjective ROS Limited/Unobtainable: Yes Constitutional: Denies: fever Allergies: Coded Allergies: No Known Allergies (Unverified , 03/24/18) Objective Vital Signs Last 24 Hour Vital Signs Date Time Temp Pulse Resp B/P (MAP) Pulse Ox O2 Delivery O2 Flow Rate FiO2 05/26/19 15:10 74 16 97 Nasal Cannula 2.0 28 79 16 99 05/26/19 12:13 77 16 100 Nasal Cannula 2.0 28 95 16 99 05/26/19 08:55 98 Nasal Cannula 2.0 28 05/26/19 08:07 79 16 100 Nasal Cannula 2.0 28 82 18 99 05/26/19 08:00 97.5 93 20 124/70 (88) 98 05/26/19 00:00 98.1 86 20 139/84 (102) 97 05/25/19 23:20 80 18 100 Nasal Cannula 2.0 28 82 18 99 05/25/19 21:00 Nasal Cannula 2.0 05/25/19 20:00 98.8 80 20 136/86 (103) 97 05/25/19 19:31 98 Nasal Cannula 2.0 28 05/25/19 19:30 72 18 100 Nasal Cannula 2.0 28 83 20 97 Height (Feet): 5 Height (Inches): 4.00 Weight (Pounds): 123 General Appearance: no acute distress HEENT: mucous membranes moist Respiratory/Chest: lungs clear Cardiovascular: normal rate Abdomen: soft, non tender Extremities: no edema Neurologic/Psychiatric: other - sleeping Current Medications Medications (Trade) Dose Ordered Sig/Niki Route PRN Reason Start Time Stop Time Status Last Admin Dose Admin Acetaminophen (Tylenol) 650 mg Q4H PRN ORAL Mild Pain/Temp > 100.5 05/26/19 01:30 06/21/19 21:29 Albuterol Sulfate (Proventil) 2.5 mg Q4HRT HHN 05/25/19 23:00 05/28/19 02:59 05/26/19 15:00 Albuterol/ Ipratropium (Albuterol/ Ipratropium) 3 ml Q4H PRN HHN Shortness of Breath 10/26/19 01:30 05/27/19 21:29 05/25/19 23:21 Azithromycin (Zithromax) 500 mg DAILY ORAL 05/26/19 09:00 05/30/19 08:59 05/26/19 08:51 Ceftriaxone Sodium 1 gm/ Dextrose 55 ml @ 110 mls/hr Q24H IVPB 05/26/19 08:00 05/30/19 07:59 05/26/19 08:52 Cetylpyridinium Chloride (Cepacol) 1 lozg Q2H PRN GUERA sore throat 05/25/19 23:00 06/22/19 12:59 Dextrose (Dextrose 50%) 25 ml Q30M PRN IV Hypoglycemia 05/25/19 22:30 06/22/19 12:59 Dextrose (Dextrose 50%) 50 ml Q30M PRN IV Hypoglycemia 05/25/19 22:30 06/22/19 12:59 Docusate Sodium (Colace) 250 mg BID ORAL 05/26/19 09:00 06/23/19 11:29 Guaifenesin (Robitussin) 100 mg Q4H PRN ORAL For Cough 05/26/19 01:00 06/22/19 12:59 Heparin Sodium (Porcine) (Heparin 5000 units/ml) 5,000 units EVERY 12 HOURS SUBQ 05/26/19 09:00 06/22/19 08:59 05/26/19 09:05 Insulin Aspart (NovoLOG) BEFORE MEALS AND HS SUBQ 05/26/19 06:30 06/22/19 16:29 05/26/19 17:35 Nicotine (Nicoderm) 1 patch Q24H TDERMAL 05/26/19 13:00 06/22/19 12:59 05/26/19 13:30 Ondansetron HCl (Zofran) 4 mg Q6H PRN IVP Nausea & Vomiting 05/26/19 03:30 06/21/19 21:29 Pantoprazole (Protonix) 40 mg DAILY@0630 ORAL 05/26/19 06:30 06/25/19 06:29 05/26/19 05:40 Phenyleph/Shark Oil/Glycerin/ Petrol (Preparation H) 1 applic THREE TIMES A DAY PRN RECTAL Hemorroidal Pain 05/26/19 09:00 06/23/19 12:59 Prednisone (predniSONE) 40 mg DAILY ORAL 05/27/19 09:00 06/26/19 08:59 Sodium Chloride 1,000 ml @ 55 mls/hr [id number] IV 05/25/19 22:30 06/21/19 21:29 05/26/19 17:36 Omi Andres MD May 26, 2019 17:59
--- NOTE | 2019-05-26 19:30 | NUR ---
HAND-OFF: Report given to NATHANIEL Haywood.
[2019-05-26 20:00] VITALS: BP 147/79
--- NOTE | 2019-05-26 20:00 | NUR ---
NURSE NOTES: RECEIVED PATIENT LYING IN BED, EYES CLOSED, AWAKENED TO NAME, ORIENTED X4, DENIES PAIN, NO SIGNS AND SYMPTOMS OF ACUTE CARDIO RESPIRATORY DISTRESS/SHORTNESS OF BREATH, DENIES CHEST PAIN, NO PERIPHERAL EDEMA NOTED. NO REPORT OF GI DISCOMFORT, NO N/V/D. SIDE RAILS UP X2 FOR MOBILITY, BED IN LOWEST POSITION FOR SAFETY. ENCOURAGED PATIENT TO UTILIZE CALL LIGHT FOR ASSISTANCE, VERBALIZED UNDERSTANDING. NAD.
--- NOTE | 2019-05-26 20:58 | General Progress Note ---
Assessment/Plan Problem List: (1) Pneumonia ICD Codes: J18.9 - Pneumonia, unspecified organism SNOMED: 462991529 Qualifiers: Qualified Codes: J18.1 - Lobar pneumonia, unspecified organism (2) Asthma ICD Codes: J45.909 - Unspecified asthma, uncomplicated SNOMED: 311799960 Qualifiers: Qualified Codes: J45.909 - Unspecified asthma, uncomplicated Status: progressing Assessment/Plan: asthma is improving depression no wheezing not hypoxic Subjective ROS Limited/Unobtainable: Yes Allergies: Coded Allergies: No Known Allergies (Unverified , 03/24/18) Objective Last 24 Hour Vital Signs Date Time Temp Pulse Resp B/P (MAP) Pulse Ox O2 Delivery O2 Flow Rate FiO2 05/26/19 20:00 98.3 91 20 147/79 (101) 97 05/26/19 19:21 97 21 05/26/19 19:21 66 97 Room Air 21 05/26/19 16:00 98.0 97 18 153/81 (105) 98 05/26/19 15:10 74 16 97 Nasal Cannula 2.0 28 79 16 99 05/26/19 12:13 77 16 100 Nasal Cannula 2.0 28 95 16 99 05/26/19 12:00 98.2 94 18 146/83 (104) 98 05/26/19 09:00 Nasal Cannula 2.0 05/26/19 08:55 98 Nasal Cannula 2.0 28 05/26/19 08:07 79 16 100 Nasal Cannula 2.0 28 82 18 99 05/26/19 08:00 97.5 93 20 124/70 (88) 98 05/26/19 00:00 98.1 86 20 139/84 (102) 97 05/25/19 23:20 80 18 100 Nasal Cannula 2.0 28 82 18 99 05/25/19 21:00 Nasal Cannula 2.0 Intake and Output 05/25/19 05/26/19 19:00 07:00 Intake Total 470 ml 745 ml Balance 470 ml 745 ml Intake Oral 470 ml 360 ml IV Total 385 ml # Voids 3 2 Height (Feet): 5 Height (Inches): 4.00 Weight (Pounds): 123 Neck: supple Cardiovascular: normal rate Respiratory/Chest: lungs clear Abdomen: soft Josep Agrawal MD May 26, 2019 20:58
[2019-05-27] VITALS: BP 129/89
--- NOTE | 2019-05-27 02:00 | NUR ---
NURSE NOTES: RESTING WELL ON ROUNDS, NO SIGNS AND SYMPTOMS OF DISTRESS, WILL MONITOR FOR SAFETY/NEEDS.
[2019-05-27] MEDS: Albuterol ud Inhalation HHN SCH ×6 (03:48→22:51)
[2019-05-27] MEDS: NovoLOG Insulin Flexpen SUBQ SCH ×4 (06:24→21:00)
--- NOTE | 2019-05-27 06:24 | NUR ---
NURSE NOTES: BLOOD GLUCOSE LEVEL MONITORED VIA GLUCOMETER WITH RESULT 85MG/DL, ASYMPTOMATIC, NO SLIDING SCALE COVERAGE.
[2019-05-27 07:02] LABS: BASOPHILS % (AUTO) 1.1 % (0.0-2.0); EOSINOPHILS % (AUTO) 1.3 % (0.0-3.0); HEMATOCRIT 50.2 % (42.0-52.0); HEMOGLOBIN 16.5 G/DL (14.2-18.0); LYMPHOCYTES % (AUTO) 25.3 % (20.0-45.0); MEAN CORPUSCULAR VOLUME 95 FL (80-99); MONOCYTES % (AUTO) 10.8 % (1.0-10.0); NEUTROPHILS % (AUTO) 61.5 % (45.0-75.0); PLATELET COUNT 258 K/UL (150-450); RED BLOOD COUNT 5.29 M/UL (4.70-6.10); RED CELL DISTRIBUTION WIDTH 12.9 % (11.6-14.8); WHITE BLOOD COUNT 8.4 K/UL (4.8-10.8)
--- NOTE | 2019-05-27 07:30 | NUR ---
NURSE NOTES: RECEIVED PATIENT SITTING ON THE EDGE OF THE BED, EATING BREAKFAST. A/A/OX4, DENIES PAIN, NO SIGNS AND SYMPTOMS OF ACUTE CARDIO-RESPIRATORY DISTRESS/SHORTNESS OF BREATH, DENIES CHEST PAIN, NO PERIPHERAL EDEMA NOTED. NO REPORT OF GI DISCOMFORT, NO N/V/D. SIDE RAILS UP X2 AMBULATE WITH STEADY GAIT, BED IN LOWEST POSITION FOR SAFETY. ENCOURAGED TO UTILIZE CALL LIGHT FOR ASSISTANCE, VERBALIZED UNDERSTANDING. WILL CONT TO MONITOR.
[2019-05-27 07:31] LABS: ANION GAP 9 mmol/L (5-15); BLOOD UREA NITROGEN 20 mg/dL (7-18); CALCIUM 8.9 MG/DL (8.5-10.1); CARBON DIOXIDE 31 MMOL/L (21-32); CHLORIDE 99 MMOL/L (98-107); CREATININE 0.9 MG/DL (0.55-1.30); POTASSIUM 3.7 MMOL/L (3.5-5.1); SODIUM 139 MMOL/L (136-145)
[2019-05-27 08:00] VITALS: BP 129/87
[2019-05-27] MEDS: Docusate 250mg cap ORAL SCH ×2 (08:28→16:49)
[2019-05-27] MEDS: Azithromycin 250mg tab ORAL SCH (08:28)
[2019-05-27] MEDS: Heparin 5000 units/ml inj SUBQ SCH ×2 (08:28→21:00)
[2019-05-27] MEDS: guaiFENesin 100mg/5ml Liq ud ORAL PRN (09:59)
--- NOTE | 2019-05-27 10:11 | NUR ---
NURSE NOTES: AMBULATES WITH A FRIEND ON THE HALLWAY. STEADY GAIT. C/O COUGH AND GIVEN ROBITUSSIN PER MD ORDER. WILL CONT TO MONITOR.
[2019-05-27] MEDS: cefTRIAXone 1 GM in D5W 55 ML IVPB SCH (10:23)
--- NOTE | 2019-05-27 11:00 | General Progress Note ---
Assessment/Plan Status: progressing Assessment/Plan: Assessment/Plan Assessment/Plan: Assessment - Hematochezia - hemorrhoids - has had a recent colonoscopy at [facility] - Asthma Recommendations - stool softener - preparation H - no plans for colonoscopy - get recent colonoscopy records from [facility] Subjective ROS Limited/Unobtainable: No Allergies: Coded Allergies: No Known Allergies (Unverified , 03/24/18) Objective Last 24 Hour Vital Signs Date Time Temp Pulse Resp B/P (MAP) Pulse Ox O2 Delivery O2 Flow Rate FiO2 05/27/19 08:00 97.5 105 20 129/87 (101) 100 05/27/19 07:48 98 Room Air 21 05/27/19 07:46 77 16 97 Room Air 2.0 21 88 18 97 05/27/19 00:00 97.2 76 18 129/89 (102) 99 05/26/19 21:00 Nasal Cannula 2.0 05/26/19 20:00 98.3 91 20 147/79 (101) 97 05/26/19 19:21 97 21 05/26/19 19:21 66 97 Room Air 21 05/26/19 16:00 98.0 97 18 153/81 (105) 98 05/26/19 15:10 74 16 97 Nasal Cannula 2.0 28 79 16 99 05/26/19 12:13 77 16 100 Nasal Cannula 2.0 28 95 16 99 05/26/19 12:00 98.2 94 18 146/83 (104) 98 Intake and Output 05/26/19 05/27/19 19:00 07:00 Intake Total 1145 ml Balance 1145 ml Intake Oral 540 ml IV Total 605 ml # Voids 7 4 # Bowel Movements 2 Laboratory Tests 05/27/19 06:32: White Blood Count 8.4, Red Blood Count 5.29, Hemoglobin 16.5, Hematocrit 50.2, Mean Corpuscular Volume 95, Mean Corpuscular Hemoglobin 31.2H, Mean Corpuscular Hemoglobin Concent 32.9, Red Cell Distribution Width 12.9, Platelet Count 258, Mean Platelet Volume 5.3L, Neutrophils (%) (Auto) 61.5, Lymphocytes (%) (Auto) 25.3, Monocytes (%) (Auto) 10.8H, Eosinophils (%) (Auto) 1.3, Basophils (%) ( Auto) 1.1, Sodium Level 139, Potassium Level 3.7, Chloride Level 99, Carbon Dioxide Level 31, Anion Gap 9, Blood Urea Nitrogen 20H, Creatinine 0.9, Estimat Glomerular Filtration Rate > 60, Glucose Level 81, Calcium Level 8.9 Height (Feet): 5 Height (Inches): 4.00 Weight (Pounds): 123 General Appearance: alert EENT: normal ENT inspection Neck: supple Cardiovascular: normal rate Respiratory/Chest: decreased breath sounds Abdomen: normal bowel sounds, non tender, soft Extremities: non-tender Jason Shen MD May 27, 2019 11:00
[2019-05-27 11:56] VITALS: BP 125/89
--- NOTE | 2019-05-27 12:50 | General Progress Note ---
Assessment/Plan Problem List: (1) Pneumonia ICD Codes: J18.9 - Pneumonia, unspecified organism SNOMED: [id number] Qualifiers: Qualified Codes: J18.1 - Lobar pneumonia, unspecified organism (2) Asthma ICD Codes: J45.909 - Unspecified asthma, uncomplicated SNOMED: [id number] Qualifiers: Qualified Codes: J45.909 - Unspecified asthma, uncomplicated Status: progressing Assessment/Plan: no wheezing asthma is improving afebrile vitals stable Subjective ROS Limited/Unobtainable: Yes Allergies: Coded Allergies: No Known Allergies (Unverified , 03/24/18) Objective Last 24 Hour Vital Signs Date Time Temp Pulse Resp B/P (MAP) Pulse Ox O2 Delivery O2 Flow Rate FiO2 05/27/19 11:56 97.5 110 20 125/89 (101) 99 05/27/19 11:48 100 16 99 Room Air 2.0 21 98 18 97 05/27/19 08:00 97.5 105 20 129/87 (101) 100 05/27/19 07:48 98 Room Air 21 05/27/19 07:46 77 16 97 Room Air 2.0 21 88 18 97 05/27/19 00:00 97.2 76 18 129/89 (102) 99 05/26/19 21:00 Nasal Cannula 2.0 05/26/19 20:00 98.3 91 20 147/79 (101) 97 05/26/19 19:21 97 21 05/26/19 19:21 66 97 Room Air 21 05/26/19 16:00 98.0 97 18 153/81 (105) 98 05/26/19 15:10 74 16 97 Nasal Cannula 2.0 28 79 16 99 Intake and Output 05/26/19 05/27/19 19:00 07:00 Intake Total 1145 ml Balance 1145 ml Intake Oral 540 ml IV Total 605 ml # Voids 7 4 # Bowel Movements 2 Laboratory Tests 05/27/19 06:32: White Blood Count 8.4, Red Blood Count 5.29, Hemoglobin 16.5, Hematocrit 50.2, Mean Corpuscular Volume 95, Mean Corpuscular Hemoglobin 31.2H, Mean Corpuscular Hemoglobin Concent 32.9, Red Cell Distribution Width 12.9, Platelet Count 258, Mean Platelet Volume 5.3L, Neutrophils (%) (Auto) 61.5, Lymphocytes (%) (Auto) 25.3, Monocytes (%) (Auto) 10.8H, Eosinophils (%) (Auto) 1.3, Basophils (%) ( Auto) 1.1, Sodium Level 139, Potassium Level 3.7, Chloride Level 99, Carbon Dioxide Level 31, Anion Gap 9, Blood Urea Nitrogen 20H, Creatinine 0.9, Estimat Glomerular Filtration Rate > 60, Glucose Level 81, Calcium Level 8.9 Height (Feet): 5 Height (Inches): 4.00 Weight (Pounds): 123 Neck: supple Cardiovascular: normal rate Respiratory/Chest: lungs clear Josep Agrawal MD May 27, 2019 12:50
--- NOTE | 2019-05-27 14:16 | Pulmonology Progress Note ---
Assessment/Plan Assessment/Plan Pulmonary Progress Note HPI Patient is a 38 year old man with history of Asthma admitted with Asthma exacerbation and Pneumonia, complained of cough and wheezing, malaise, cough is productive of yellowish phlegm. States that he does have asthma and states that this triggered his asthma. 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 Did not receive a flu shot this year. Denies recent travel. No other aggravating relieving factors. Denies any other associated symptoms Less SOB, adequate sats RA Physical Exam Vital Signs Noted General Appearance: alert, GCS 15, non-toxic, no distress Head: normocephalic, atraumatic Eyes: bilateral eye normal inspection, bilateral eye PERRL ENT: moist mm, no LN Respiratory: normal breath sounds Cardiovascular: Normal HS1, HS2, no edema, tachycardia Abdomen: normal bowel sounds, non tender, soft, non-distended, no guarding, no rebound Extremities: well perfused, no rashes Neurologic: alert, oriented x3, responsive, motor strength/tone normal, sensory intact, speech normal Impression: Asthma exacerbation Underdeveloped lung Pneumonia Plan: IV Ceftriaxone, PO Azithromycin Steroids - wean as tolerated HHN Oxygen PRN PPX Monitor labs Labs noted EKG: Rate: normal Rhythm: NSR ST Segments: no acute changes Chest X-Ray: 1. Limited examination due to patient rotation. 2. Pulmonary vascular congestion with right basilar airspace opacity which may represent atelectasis but pneumonia should be excluded Subjective ROS Limited/Unobtainable: No Allergies: Coded Allergies: No Known Allergies (Unverified , 03/24/18) Objective Last 24 Hour Vital Signs Date Time Temp Pulse Resp B/P (MAP) Pulse Ox O2 Delivery O2 Flow Rate FiO2 05/27/19 11:56 97.5 110 20 125/89 (101) 99 05/27/19 11:48 100 16 99 Room Air 2.0 21 98 18 97 05/27/19 09:00 Room Air 05/27/19 08:00 97.5 105 20 129/87 (101) 100 05/27/19 07:48 98 Room Air 21 05/27/19 07:46 77 16 97 Room Air 2.0 21 88 18 97 05/27/19 00:00 97.2 76 18 129/89 (102) 99 05/26/19 21:00 Nasal Cannula 2.0 05/26/19 20:00 98.3 91 20 147/79 (101) 97 05/26/19 19:21 97 21 05/26/19 19:21 66 97 Room Air 21 05/26/19 16:00 98.0 97 18 153/81 (105) 98 05/26/19 15:10 74 16 97 Nasal Cannula 2.0 28 79 16 99 Intake and Output 05/26/19 05/27/19 19:00 07:00 Intake Total 1145 ml Balance 1145 ml Intake Oral 540 ml IV Total 605 ml # Voids 7 4 # Bowel Movements 2 Laboratory Tests 05/27/19 06:32: White Blood Count 8.4, Red Blood Count 5.29, Hemoglobin 16.5, Hematocrit 50.2, Mean Corpuscular Volume 95, Mean Corpuscular Hemoglobin 31.2H, Mean Corpuscular Hemoglobin Concent 32.9, Red Cell Distribution Width 12.9, Platelet Count 258, Mean Platelet Volume 5.3L, Neutrophils (%) (Auto) 61.5, Lymphocytes (%) (Auto) 25.3, Monocytes (%) (Auto) 10.8H, Eosinophils (%) (Auto) 1.3, Basophils (%) ( Auto) 1.1, Sodium Level 139, Potassium Level 3.7, Chloride Level 99, Carbon Dioxide Level 31, Anion Gap 9, Blood Urea Nitrogen 20H, Creatinine 0.9, Estimat Glomerular Filtration Rate > 60, Glucose Level 81, Calcium Level 8.9 Current Medications Medications (Trade) Dose Ordered Sig/Niki Route PRN Reason Start Time Stop Time Status Last Admin Dose Admin Acetaminophen (Tylenol) 650 mg Q4H PRN ORAL Mild Pain/Temp > 100.5 05/26/19 01:30 06/21/19 21:29 Albuterol Sulfate (Proventil) 2.5 mg Q4HRT HHN 05/25/19 23:00 05/28/19 02:59 05/27/19 11:47 Albuterol/ Ipratropium (Albuterol/ Ipratropium) 3 ml Q4H PRN HHN Shortness of Breath 05/26/19 01:30 05/27/19 21:29 05/25/19 23:21 Azithromycin (Zithromax) 500 mg DAILY ORAL 05/26/19 09:00 05/30/19 08:59 05/27/19 08:28 Ceftriaxone Sodium 1 gm/ Dextrose 55 ml @ 110 mls/hr Q24H IVPB 05/26/19 08:00 05/30/19 07:59 05/27/19 10:23 Cetylpyridinium Chloride (Cepacol) 1 lozg Q2H PRN GUERA sore throat 05/25/19 23:00 06/22/19 12:59 Dextrose (Dextrose 50%) 25 ml Q30M PRN IV Hypoglycemia 05/25/19 22:30 06/22/19 12:59 Dextrose (Dextrose 50%) 50 ml Q30M PRN IV Hypoglycemia 05/25/19 22:30 06/22/19 12:59 Docusate Sodium (Colace) 250 mg BID ORAL 05/26/19 09:00 06/23/19 11:29 Guaifenesin (Robitussin) 100 mg Q4H PRN ORAL For Cough 05/26/19 01:00 06/22/19 12:59 05/27/19 09:59 Heparin Sodium (Porcine) (Heparin 5000 units/ml) 5,000 units EVERY 12 HOURS SUBQ 05/26/19 09:00 06/22/19 08:59 05/26/19 09:05 Insulin Aspart (NovoLOG) BEFORE MEALS AND HS SUBQ 05/26/19 06:30 06/22/19 16:29 05/27/19 12:09 Nicotine (Nicoderm) 1 patch Q24H TDERMAL 05/26/19 13:00 06/22/19 12:59 05/27/19 12:08 Ondansetron HCl (Zofran) 4 mg Q6H PRN IVP Nausea & Vomiting 05/26/19 03:30 06/21/19 21:29 Pantoprazole (Protonix) 40 mg DAILY@0630 ORAL 05/26/19 06:30 06/25/19 06:29 05/27/19 06:38 Phenyleph/Shark Oil/Glycerin/ Petrol (Preparation H) 1 applic THREE TIMES A DAY PRN RECTAL Hemorroidal Pain 05/26/19 09:00 06/23/19 12:59 Prednisone (predniSONE) 40 mg DAILY ORAL 05/27/19 09:00 06/26/19 08:59 05/27/19 08:27 Sodium Chloride 1,000 ml @ 55 mls/hr [id number] IV 05/25/19 22:30 06/21/19 21:29 05/27/19 08:29 Tej Ren MD May 27, 2019 14:16
[2019-05-27 16:09] VITALS: BP 128/81
--- NOTE | 2019-05-27 18:59 | NUR ---
HAND-OFF: Report given to Niki.
[2019-05-27 20:00] VITALS: BP 131/79
--- NOTE | 2019-05-27 20:09 | NUR ---
NURSE NOTES: RECEIVED PATIENT LYING IN BED, AWAKE, ALERT/ORIENTED X4, VERBALLY RESPONSIVE, DENIES PAIN. NO SIGNS AND SYMPTOMS OF ACUTE CARDIO RESPIRATORY DISTRESS/SHORTNESS OF BREATH, DENIES CHEST PAIN, NO PERIPHERAL EDEMA NOTED, HHN AROUND THE CLOCK. DENIES GI DISCOMFORT, NO N/V/D, BATHROOM PRIVILEGES. SIDE RAILS UP X2 FOR MOBILITY, BED IN LOWEST POSITION FOR SAFETY. ENCOURAGED PATIENT TO UTILIZE CALL LIGHT FOR ASSISTANCE. CONTINUE WITH CURRENT PLAN OF CARE. NAD.
[2019-05-28] VITALS: BP 125/81
--- NOTE | 2019-05-28 00:30 | Progress Note ---
DATE: 05/27/2019 SUBJECTIVE: The patient is in bed, in no acute distress. The patient was seen yesterday, 05/26/2019. The patient is manageable. No behavioral issues noted, cooperative. MENTAL STATUS EXAMINATION: Alert and oriented times self, place, and situation. Mood is neutral. Affect is constricted, congruent with mood. Thought process is concrete. Thought content, no suicidal or homicidal ideation. ASSESSMENT: Stable. PLAN: We will continue current medication. Mustapha Woods M.D. DR: LONNY JOB#: [id number] CC:
[2019-05-28 04:00] VITALS: BP 132/93
[2019-05-28] MEDS: guaiFENesin 100mg/5ml Liq ud ORAL PRN (05:45)
[2019-05-28] MEDS: NovoLOG Insulin Flexpen SUBQ SCH ×3 (05:58→16:30)
--- NOTE | 2019-05-28 05:59 | NUR ---
NURSE NOTES: BLOOD GLUCOSE LEVEL MONITORED VIA GLUCOMETER WITH RESULT 76MG/DL, ASSESSED FOR SIGNS AND SYMPTOMS OF HYPOGLYCEMIA, NONE NOTED, NO SLIDING SCALE COVERAGE. NAD.
--- NOTE | 2019-05-28 07:30 | NUR ---
NURSE NOTES: Received pt from KIMBERLY VARELA. Pt is alert and orient. pt is in RA, no SOB or acute respiratory distress noted. pt has intact iv access L wrist 20G is running well. all needs attended, bed is locked and is in the lowest position, call light within easy reach. will continue to monitor.
--- NOTE | 2019-05-28 07:32 | NUR ---
HAND-OFF: Report given to AVERY ESCOBAR. Addendum: 05/28/19 at 9834 by KIMBERLY VASQUES LVN CHARTED IN ERROR, HAND OFF AVERY SHANE
[2019-05-28 08:00] VITALS: BP 128/81
[2019-05-28] MEDS: Azithromycin 250mg tab ORAL SCH (08:44)
[2019-05-28] MEDS: cefTRIAXone 1 GM in D5W 55 ML IVPB SCH (08:44)
[2019-05-28] MEDS: Docusate 250mg cap ORAL SCH ×2 (08:45→17:17)
[2019-05-28] MEDS: Heparin 5000 units/ml inj SUBQ SCH (08:53)
--- NOTE | 2019-05-28 11:51 | Infectious Diseases Prog Note ---
Assessment/Plan Assessment/Plan IMPRESSION: 1. Atelectasis with pneumonia in right lower lung. 2. Asthma exacerbation. 3. Nicotine dependence. 4. rectal bleeding due to hemorrhoids RECOMMENDATION: Discontinue ceftriaxone and azithromycin Observe off antibiotic Subjective ROS Limited/Unobtainable: Yes Constitutional: Reports: no symptoms Respiratory: Reports: no symptoms Cardiovascular: Reports: no symptoms Genitourinary: Reports: no symptoms Allergies: Coded Allergies: No Known Allergies (Unverified , 03/24/18) Objective Vital Signs Last 24 Hour Vital Signs Date Time Temp Pulse Resp B/P (MAP) Pulse Ox O2 Delivery O2 Flow Rate FiO2 05/28/19 09:00 Room Air 05/28/19 04:00 96.8 72 18 132/93 (106) 99 05/28/19 01:56 84 18 100 Nasal Cannula 2.0 28 05/28/19 00:00 97.6 99 18 125/81 (96) 97 05/27/19 21:00 Room Air 05/27/19 20:00 97.1 95 18 131/79 (96) 97 05/27/19 19:45 92 16 100 Nasal Cannula 2.0 28 88 16 98 05/27/19 19:44 98 Nasal Cannula 2.0 28 05/27/19 16:09 97.7 93 20 128/81 (97) 99 05/27/19 15:36 99 18 99 Room Air 2.0 21 97 16 96 05/27/19 11:56 97.5 110 20 125/89 (101) 99 Height (Feet): 5 Height (Inches): 4.00 Weight (Pounds): 123 General Appearance: no acute distress HEENT: mucous membranes moist Respiratory/Chest: inspiratory wheezing Cardiovascular: normal rate Abdomen: soft, non tender Extremities: no edema Neurologic/Psychiatric: alert, oriented x 3, responsive Current Medications Medications (Trade) Dose Ordered Sig/Niki Route PRN Reason Start Time Stop Time Status Last Admin Dose Admin Acetaminophen (Tylenol) 650 mg Q4H PRN ORAL Mild Pain/Temp > 100.5 05/26/19 01:30 06/21/19 21:29 Azithromycin (Zithromax) 500 mg DAILY ORAL 05/26/19 09:00 05/30/19 08:59 05/28/19 08:44 Ceftriaxone Sodium 1 gm/ Dextrose 55 ml @ 110 mls/hr Q24H IVPB 05/26/19 08:00 05/30/19 07:59 05/28/19 08:44 Cetylpyridinium Chloride (Cepacol) 1 lozg Q2H PRN GUERA sore throat 05/25/19 23:00 06/22/19 12:59 Dextrose (Dextrose 50%) 25 ml Q30M PRN IV Hypoglycemia 05/25/19 22:30 06/22/19 12:59 Dextrose (Dextrose 50%) 50 ml Q30M PRN IV Hypoglycemia 05/25/19 22:30 06/22/19 12:59 Docusate Sodium (Colace) 250 mg BID ORAL 05/26/19 09:00 06/23/19 11:29 05/28/19 08:45 Guaifenesin (Robitussin) 100 mg Q4H PRN ORAL For Cough 05/26/19 01:00 06/22/19 12:59 05/28/19 05:45 Heparin Sodium (Porcine) (Heparin 5000 units/ml) 5,000 units EVERY 12 HOURS SUBQ 05/26/19 09:00 06/22/19 08:59 05/28/19 08:53 Insulin Aspart (NovoLOG) BEFORE MEALS AND HS SUBQ 05/26/19 06:30 06/22/19 16:29 05/27/19 12:09 Nicotine (Nicoderm) 1 patch Q24H TDERMAL 05/26/19 13:00 06/22/19 12:59 05/27/19 12:08 Ondansetron HCl (Zofran) 4 mg Q6H PRN IVP Nausea & Vomiting 05/26/19 03:30 06/21/19 21:29 Pantoprazole (Protonix) 40 mg DAILY@0630 ORAL 05/26/19 06:30 06/25/19 06:29 05/28/19 05:46 Phenyleph/Shark Oil/Glycerin/ Petrol (Preparation H) 1 applic THREE TIMES A DAY PRN RECTAL Hemorroidal Pain 05/26/19 09:00 06/23/19 12:59 Prednisone (predniSONE) 40 mg DAILY ORAL 05/27/19 09:00 06/26/19 08:59 05/28/19 08:44 Sodium Chloride 1,000 ml @ 55 mls/hr [id number] IV 05/25/19 22:30 06/21/19 21:29 05/28/19 05:45 Omi Andres MD May 28, 2019 11:51
[2019-05-28 12:00] VITALS: BP 124/77
--- NOTE | 2019-05-28 13:16 | NUR ---
*-* INSURANCE *-* UPDATED CLINICALS HAVE BEEN FAXED TO: ASHA RANDOLPHM: ARSEN P- [phone] F- [phone]...........REVIEW/CLINICAL
[2019-05-28 16:00] VITALS: BP 138/78
[2019-05-28] MEDS ORDERED: 1/2 NS 1000ml IV ONE (17:29)
--- NOTE | 2019-05-28 17:31 | NUR ---
NURSE NOTES: PT HAS DISCHARGE ORDER, ALL d/c ASSESSMENTS AND INSTRUCTIONS DONE AND PT VERBALLY CONFIRMED TO UNDERSTAND ALL. PT IS STABLE, v/s STABLE. PT ASKED TO TAKE DR AMEZQUITA PRESCRIPTION TO HIS OWN PHARMACY, SO PRESCRIPTION GIVEN TO HIM. PT'S MEDS GOT FROM PHARMACY AND GIVEN TO HIM. IV ACCESS D/C. HOSPITAL PROVIDED CAP FOR HIM AND HE LEFT HOSPITAL.
--- NOTE | 2019-05-28 18:22 | General Progress Note ---
Assessment/Plan Status: progressing Assessment/Plan: Assessment - Hematochezia - hemorrhoids - has had a recent colonoscopy at [facility] - Asthma Recommendations - stool softener - preparation H - no plans for colonoscopy - f/u with prior GI MD Subjective Allergies: Coded Allergies: No Known Allergies (Unverified , 03/24/18) Subjective Feels Same no abd complaints for d/c today advised to f/u with prior GI MD Objective Last 24 Hour Vital Signs Date Time Temp Pulse Resp B/P (MAP) Pulse Ox O2 Delivery O2 Flow Rate FiO2 05/28/19 16:00 97.5 89 20 138/78 (98) 100 05/28/19 12:00 97.7 86 19 124/77 (93) 99 05/28/19 09:00 Room Air 05/28/19 08:00 97.2 90 19 128/81 (97) 99 05/28/19 04:00 96.8 72 18 132/93 (106) 99 05/28/19 01:56 84 18 100 Nasal Cannula 2.0 28 05/28/19 00:00 97.6 99 18 125/81 (96) 97 05/27/19 21:00 Room Air 05/27/19 20:00 97.1 95 18 131/79 (96) 97 05/27/19 19:45 92 16 100 Nasal Cannula 2.0 28 88 16 98 05/27/19 19:44 98 Nasal Cannula 2.0 28 Intake and Output 05/27/19 05/28/19 19:00 07:00 Intake Total 1250 ml 1215 ml Balance 1250 ml 1215 ml Intake Oral 480 ml 720 ml IV Total 770 ml 495 ml # Voids 4 3 # Bowel Movements 2 Height (Feet): 5 Height (Inches): 4.00 Weight (Pounds): 123 Objective Thin WM NCAT supple CTA RRR abd soft no edema non focal Tracy Holley MD May 28, 2019 18:22
--- NOTE | 2019-05-28 22:03 | Pulmonology Progress Note ---
Assessment/Plan Assessment/Plan Pulmonary Progress Note HPI Patient is a 38 year old man with history of Asthma admitted with Asthma exacerbation and Pneumonia, complained of cough and wheezing, malaise, cough is productive of yellowish phlegm. States that he does have asthma and states that this triggered his asthma. 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 Did not receive a flu shot this year. Denies recent travel. No other aggravating relieving factors. Denies any other associated symptoms Less SOB, adequate sats RA Physical Exam Vital Signs Noted General Appearance: alert, GCS 15, non-toxic, no distress Head: normocephalic, atraumatic Eyes: bilateral eye normal inspection, bilateral eye PERRL ENT: moist mm, no LN Respiratory: normal breath sounds Cardiovascular: Normal HS1, HS2, no edema, tachycardia Abdomen: normal bowel sounds, non tender, soft, non-distended, no guarding, no rebound Extremities: well perfused, no rashes Neurologic: alert, oriented x3, responsive, motor strength/tone normal, sensory intact, speech normal Impression: Asthma exacerbation Underdeveloped lung Pneumonia Plan: IV Ceftriaxone, PO Azithromycin Steroids - wean as tolerated HHN Oxygen PRN PPX Monitor labs Labs noted EKG: Rate: normal Rhythm: NSR ST Segments: no acute changes Chest X-Ray: 1. Limited examination due to patient rotation. 2. Pulmonary vascular congestion with right basilar airspace opacity which may represent atelectasis but pneumonia should be excluded Seen earlier - DC PPX provided [facility] 2001 2pbidAlbuterol MDI 1-2 puffs PRN Q6 wheeze Medrol dose pack Subjective ROS Limited/Unobtainable: No Allergies: Coded Allergies: No Known Allergies (Unverified , 03/24/18) Objective Last 24 Hour Vital Signs Date Time Temp Pulse Resp B/P (MAP) Pulse Ox O2 Delivery O2 Flow Rate FiO2 05/28/19 16:00 97.5 89 20 138/78 (98) 100 05/28/19 12:00 97.7 86 19 124/77 (93) 99 05/28/19 09:00 Room Air 05/28/19 08:00 97.2 90 19 128/81 (97) 99 05/28/19 04:00 96.8 72 18 132/93 (106) 99 05/28/19 01:56 84 18 100 Nasal Cannula 2.0 28 05/28/19 00:00 97.6 99 18 125/81 (96) 97 Intake and Output 05/27/19 05/28/19 19:00 07:00 Intake Total 1250 ml 1215 ml Balance 1250 ml 1215 ml Intake Oral 480 ml 720 ml IV Total 770 ml 495 ml # Voids 4 3 # Bowel Movements 2 Tej Ren MD May 28, 2019 22:03
--- NOTE | 2019-05-29 08:25 | Discharge Summary ---
Discharge Summary Discharge Summary _ DATE OF ADMISSION: 05/22/2019 DATE OF DISCHARGE: 05/28/2019 DISCHARGED BY: REASON FOR ADMISSION: 78 years old male with past medical history of asthma, was brought by EMS from home , complaining of cough and wheezing. Patient reported symptoms for 1 day. Cough reported to be productive with yellowish phlegm. Patient was using inhaler at home without significant relief. Upon evaluation patient was afebrile, tachypneic , pulse oximetry was 98% on 2 L of oxygen via nasal cannula. Laboratory work-up revealed no leukocytosis , stable hemoglobin and hematocrit. Stable electrolytes and renal parameters. Glucose 104. Stable LFT. Lactic acid 2. Urinalysis revealed no evidence of urinary tract infection. EKG revealed normal sinus rhythm , no acute ischemic changes. Chest x-ray demonstrated pulmonary vascular congestion with right basilar airspace opacity. In the emergency department patient received bronchodilator treatment, started on the IV fluid , supplemental oxygen , loading dose of steroid , empiric azithromycin and ceftriaxone , and subsequently was admitted for further management. CONSULTANTS: pulmonary Dr. Ren ID specialist Dr. Dr. Ho GI specialist Dr. Holley psychiatrist [facility] COURSE: Patient admitted to medical surgical floor. Rock Picker closely followed. Supplemental oxygen titrated to keep pulse oximetry above 92%. Pulmonary toilet with bronchodilator provided. Patient continued on empiric antibiotics. Patient was on IV steroids with gradual tapering down. Patient counseled on smoking cessation. Patient was provided with nicotine patch while in the hospital. DVT and GI prophylaxis provided. Patient noted to have hematochezia . Patient had recent colonoscopy at [facility] and found to have hemorrhoids. GI specialist followed. Patient started on stool softener and preparation H. No plans for colonoscopy. Hemoglobin hematocrit remained stable Psychiatrist seen and evaluated patient . Per psychiatrist patient had major depressive disorder. Psychiatric medication regimen was optimized. Supportive therapy provided. Patient appeared to be cooperative, no behavioral issues. Patient was clinically improved with treatment. Antibiotic were stopped as per ID specialist recommendation. Patient was clinically stable for discharge home. FINAL DIAGNOSES: Asthma exacerbation Pneumonia , right lower lung with atelectasis Underdeveloped lung Nicotine dependency Hematochezia Hemorrhoids DISCHARGE MEDICATIONS: See Medication Reconciliation list. Patient was discharged on inhalers Dulera and Albuterol, Medrol dose pack. DISCHARGE INSTRUCTIONS: Patient was discharged home . Follow up with primary care provider in one week. I have been assigned to dictate discharge summary for this account. I was not involved in the patient's management. Alyssa Seaman NP May 29, 2019 08:24
--- NOTE | 2019-05-29 15:25 | NUR ---
*-* INSURANCE *-* UPDATED CLINICALS HAVE BEEN FAXED TO: ASHA GRANDA: ARSEN P- [phone] F- [phone]...........REVIEW/CLINICAL Addendum: 05/29/19 at 1528 by SAUL MOORE CM S/W JESUS ALBERTO:ARSEN TO CONFIRM HE HAS BEEN RECEIVING CLINICALS FOR PATIENT AND HE STATED HE HAS. Addendum: 05/30/19 at 1423 by SAUL MOORE CM SPOKE TO ARSEN LETTING HIM KNOW THE DISCHARGE SUMMARY HAS BEEN FAXED . ONLY DISCHARGE INSTRUCTION WERE FAXED 05/29/19
--- NOTE | 2019-05-30 15:32 | Cardiology Report ---
APPROVED REPORT EKG Measurement Heart [id number] Normal sinus rhythm Rightward axis Borderline ECG
== END 2019-05-28 17:30 | disposition home or self-care (01) | DRG 139 ==
LOC: EDBD 17:09 → EMR 17:24 → OBSVTOIN 19:40 → 2E 19:40 → INTOOBSV 19:40 → EDBEDREQ 20:11 → 2E 21:10 → 4E 05-25 22:30
DX: J18.9 Pneumonia, unspecified organism (principal); J45.901 Unspecified asthma with (acute) exacerbation; J98.11 Atelectasis; K64.9 Unspecified hemorrhoids; F17.210 Nicotine dependence, cigarettes, uncomplicated; F20.9 Schizophrenia, unspecified; F32.9 Major depressive disorder, single episode, unspecified; Q33.6 Congenital hypoplasia and dysplasia of lung
CPT/HCPCS: 36415; 71045; 80048; 80053; 81003; 82270; 82962; 83605; 85007; 85025; 86710; 87040; 90732; 93005; 94640; 94664; 96361; 96365; 96367; 96368; 96375; 99285; J1815; J7030; J7620

== ENCOUNTER 2020-05-13 17:57 | Inpatient (IN) | payer OTHER ==
[~2020-05-13] VITALS: Ht 167.6 cm; Wt 63.1 kg
[~2020-05-13 17:57] MED LIST: NASONEX17 GM NASAL; QVAR7.3 GM INH
[2020-05-13 18:00] VITALS: BP 131/80
[2020-05-13] MEDS ORDERED: Solu-MEDROL 125mg Inj IVP ONE (18:00)
--- NOTE | 2020-05-13 18:02 | Emergency Room Report ---
History of Present Illness General Chief Complaint: Dyspnea/Respdistress Source: Patient Present Illness HPI Patient is a 39-year-old male past medical history of asthma current smoker who presents to the ER complaining of asthma exacerbation. Patient complains of shortness of breath for the past several days. He states that it got worse today. Patient states that he tried using his inhaler at home but it did not help his symptoms. Patient called 911 and was brought in by EMS. Patient was given a breathing treatment by EMS prior to arrival specifically albuterol which she states did not really help the symptoms. Patient denies any fever or chills. He denies any recent travel. Denies any chest pain, abdominal pain, lower extremity pain or edema. He states that he had a negative COVID-19 test 2 days ago. Patient states that he has been admitted in the past for his asthma. Allergies: Coded Allergies: No Known Allergies (Unverified , 03/24/18) COVID-19 Screening Contact w/high risk pt: No Experienced COVID-19 symptoms?: Yes COVID-19 Testing performed CORE OVEN TENDER: Yes COVID-19 Screening: Negative COVID-19 COVID-19 Testing Source: couple of days aggo Patient History Social History: Reports: smoking Reviewed Nursing Documentation: PMH: Agreed; PSxH: Agreed Nursing Documentation-PMH Hx Asthma: Yes Review of Systems All Other Systems: negative except mentioned in HPI Physical Exam Sp02 EP Interpretation: reviewed, normal General Appearance: alert, GCS 15, non-toxic, mild distress Head: normocephalic, atraumatic Eyes: bilateral eye normal inspection, bilateral eye PERRL ENT: hearing grossly normal, normal pharynx, no angioedema, normal voice Neck: full range of motion, supple/symm/no masses Respiratory: no accessory muscle use, other - Mild tachypnea with scattered wheezes Cardiovascular #1: tachycardia Gastrointestinal: non tender, soft Rectal: deferred Musculoskeletal: no calf tenderness, no lower extremity edema Neurologic: client relationship executive III-XII nml as tested, oriented x3 Psychiatric: no suicidal/homicidal ideation Skin: no rash Lymphatic: no adenopathy Procedures Critical Care Time Critical Care Time Total critical care time: Approximately 35 minutes. Due to a high probability of clinically significant, life threatening deterioration, the patient required my highest level of preparedness to intervene emergently and I personally spent this critical care time directly and personally managing the patient. This critical care time included obtaining a history; examining the patient; pulse oximetry; ordering and review of studies; arranging urgent treatment with development of a management plan; evaluation of patient's response to treatment; frequent reassessment; and, discussions with other providers.This critical care time was performed to assess and manage the high probability of imminent, life- threatening deterioration that could result in multi-organ failure. It was exclusive of separately billable procedures and treating other patients and teaching time. Please see MDM section and the rest of the note for further information on patie nt assessment and treatment. Medical Decision Making Diagnostic Impression: Primary Impression: Asthma exacerbation Additional Impressions: Pleural effusion Scimitar syndrome Sepsis ER Course Patient's blood gases do not seem to reflect his oxygen saturation. His oxygen saturation is 100% on room air. I believe that one of the samples is likely venous and the other 1 is mixed. Patient is refusing having another ABG. Patient has been pancultured. Patient's vital signs have been stable. Unclear if the blood gas is actually arterial but doubtful due to the fact the patient's peripheral oxygen saturation is normal. Patient has no elevated white blood cell count. Patient's lactate is elevated to 2.1. Patient started on Levaquin for his pneumonia. Patient CT demonstrates congenital lung disease. Patient can have a nonemergent pulmonary consultation while inpatient. Patient also treated with IV steroids as well as breathing treatments. Patient's COVID-19 PCR negative. Patient to be admitted for further treatment and evaluation. Laboratory Tests Test 05/13/20 18:06 05/13/20 18:15 05/13/20 18:43 05/13/20 20:30 Arterial Blood pH 7.345 (7.350-7.450) Pending Arterial Blood Partial Pressure CO2 49.6 mmHg (35.0-45.0) H Pending Arterial Blood Partial Pressure O2 49.2 mmHg (75.0-100.0) Pending Arterial Blood HCO3 26.5 mmol/L (22.0-26.0) H Pending Arterial Blood Oxygen Saturation 84.5 % (95-100) *L Pending Arterial Blood Base Excess 0 (-2-2) Pending Jesus Test Positive Pending White Blood Count 7.4 K/UL (4.8-10.8) Red Blood Count 5.16 M/UL (4.70-6.10) Hemoglobin 15.6 G/DL (14.2-18.0) Hematocrit 49.4 % (42.0-52.0) Mean Corpuscular Volume 96 FL (80-99) Mean Corpuscular Hemoglobin 30.2 PG (27.0-31.0) Mean Corpuscular Hemoglobin Concent 31.6 G/DL (32.0-36.0) L Red Cell Distribution Width 13.7 % (11.6-14.8) Platelet Count 242 K/UL (150-450) Mean Platelet Volume 5.8 FL (6.5-10.1) L Neutrophils (%) (Auto) 48.6 % (45.0-75.0) Lymphocytes (%) (Auto) 37.6 % (20.0-45.0) Monocytes (%) (Auto) 8.6 % (1.0-10.0) Eosinophils (%) (Auto) 3.9 % (0.0-3.0) H Basophils (%) (Auto) 1.3 % (0.0-2.0) Prothrombin Time 10.8 SEC (9.30-11.50) Prothrombin Time INR 1.0 (0.9-1.1) Activated Partial Thromboplast Time 29 SEC (23-33) Sodium Level 142 MMOL/L (136-145) Potassium Level 4.2 MMOL/L (3.5-5.1) Chloride Level 104 MMOL/L (98-107) Carbon Dioxide Level 30 MMOL/L (21-32) Anion Gap 8 mmol/L (5-15) Blood Urea Nitrogen 15 mg/dL (7-18) Creatinine 1.1 MG/DL (0.55-1.30) Estimated Glomerular Filtration Rate > 60 mL/min (>60) Glucose Level 94 MG/DL (74-106) Lactic Acid Level 2.10 mmol/L (0.4-2.0) H Pending Calcium Level 8.7 MG/DL (8.5-10.1) Magnesium Level 2.0 MG/DL (1.8-2.4) Total Bilirubin 0.2 MG/DL (0.2-1.0) Aspartate Amino Transferase (AST) 15 U/L (15-37) Alanine Aminotransferase (ALT) 17 U/L (12-78) Alkaline Phosphatase 107 U/L (46-116) Total Protein 6.6 G/DL (6.4-8.2) Albumin 3.3 G/DL (3.4-5.0) L Globulin 3.3 g/dL Albumin/Globulin Ratio 1.0 (1.0-2.7) Test 05/13/20 20:35 Urine Color Pending Urine Appearance Pending Urine pH Pending Urine Specific [place] Pending Urine Protein Pending Urine Glucose (UA) Pending Urine Ketones Pending Urine Blood Pending Urine Nitrite Pending Urine Bilirubin Pending Urine Urobilinogen Pending Urine Leukocyte Esterase Pending Urine Opiates Screen Pending Urine Barbiturates Screen Pending Phencyclidine (PCP) Screen Pending Urine Amphetamines Screen Pending Urine Benzodiazepines Screen Pending Urine Cocaine Screen Pending Urine Marijuana (THC) Screen Pending Microbiology Date/Time Source Procedure Growth Status 05/13/20 18:00 Nasopharynx SARS-CoV-2 RdRp Gene Assay - Final Complete EKG Diagnostic Results Troponin ordered: Yes When was troponin ordered?: May 13, 2020 EKG Time: 18:02 EP Interpretation: Noemí King MD Rate: normal - 77 bpm Rhythm: NSR ST Segments: no acute changes Other Impression Right axis deviation ASA given to the pt in ED: No Rhythm Strip Diag. Results Rhythm Strip Time: 18:13 EP Interpretation: yes - Noemí King MD Rate: 93 bpm Rhythm: NSR, no PVC's, no ectopy Chest X-Ray Diagnostic Results Chest X-Ray Diagnostic Results : Chest X-Ray Ordered: Yes # of Views/Limited/Complete: 1 View Indication: Shortness of Breath EP Interpretation: Yes Interpretation: no effusion, other - Right lower lobe infiltrate Impression: Other - Pneumonia Electronically Signed by: Noemí King MD Disposition: ADMITTED INPATIENT - Telemetry Condition: Critical Physician Consult: Dr. Teran Additional Instructions: Please note that this report is being documented using [employer] technology. This can lead to erroneous entry secondary to incorrect interpretation by the dictating instrument. Sepsis Event Note Evaluation Current Stage of Sepsis: Sepsis Possible Source: Pulmonary Focused Exam Allergies: Coded Allergies: No Known Allergies (Unverified , 03/24/18) Date Exam Occurred: May 13, 2020 Time Exam Occurred: 19:44 Laboratory Studies Laboratory Tests Test 05/13/20 18:06 05/13/20 18:15 05/13/20 18:43 05/13/20 20:30 Arterial Blood pH 7.345 (7.350-7.450) Pending Arterial Blood Partial Pressure CO2 49.6 mmHg (35.0-45.0) H Pending Arterial Blood Partial Pressure O2 49.2 mmHg (75.0-100.0) Pending Arterial Blood HCO3 26.5 mmol/L (22.0-26.0) H Pending Arterial Blood Oxygen Saturation 84.5 % (95-100) *L Pending Arterial Blood Base Excess 0 (-2-2) Pending Jesus Test Positive Pending White Blood Count 7.4 K/UL (4.8-10.8) Red Blood Count 5.16 M/UL (4.70-6.10) Hemoglobin 15.6 G/DL (14.2-18.0) Hematocrit 49.4 % (42.0-52.0) Mean Corpuscular Volume 96 FL (80-99) Mean Corpuscular Hemoglobin 30.2 PG (27.0-31.0) Mean Corpuscular Hemoglobin Concent 31.6 G/DL (32.0-36.0) L Red Cell Distribution Width 13.7 % (11.6-14.8) Platelet Count 242 K/UL (150-450) Mean Platelet Volume 5.8 FL (6.5-10.1) L Neutrophils (%) (Auto) 48.6 % (45.0-75.0) Lymphocytes (%) (Auto) 37.6 % (20.0-45.0) Monocytes (%) (Auto) 8.6 % (1.0-10.0) Eosinophils (%) (Auto) 3.9 % (0.0-3.0) H Basophils (%) (Auto) 1.3 % (0.0-2.0) Prothrombin Time 10.8 SEC (9.30-11.50) Prothromb Time International Ratio 1.0 (0.9-1.1) Activated Partial Thromboplast Time 29 SEC (23-33) Sodium Level 142 MMOL/L (136-145) Potassium Level 4.2 MMOL/L (3.5-5.1) Chloride Level 104 MMOL/L (98-107) Carbon Dioxide Level 30 MMOL/L (21-32) Anion Gap 8 mmol/L (5-15) Blood Urea Nitrogen 15 mg/dL (7-18) Creatinine 1.1 MG/DL (0.55-1.30) Estimat Glomerular Filtration Rate > 60 mL/min (>60) Glucose Level 94 MG/DL (74-106) Lactic Acid Level 2.10 mmol/L (0.4-2.0) H Pending Calcium Level 8.7 MG/DL (8.5-10.1) Magnesium Level 2.0 MG/DL (1.8-2.4) Total Bilirubin 0.2 MG/DL (0.2-1.0) Aspartate Amino Transf (AST/SGOT) 15 U/L (15-37) Alanine Aminotransferase (ALT/SGPT) 17 U/L (12-78) Alkaline Phosphatase 107 U/L (46-116) Total Protein 6.6 G/DL (6.4-8.2) Albumin 3.3 G/DL (3.4-5.0) L Globulin 3.3 g/dL Albumin/Globulin Ratio 1.0 (1.0-2.7) Test 05/13/20 20:35 Urine Color Pending Urine Appearance Pending Urine pH Pending Urine Specific [place] Pending Urine Protein Pending Urine Glucose (UA) Pending Urine Ketones Pending Urine Blood Pending Urine Nitrite Pending Urine Bilirubin Pending Urine Urobilinogen Pending Urine Leukocyte Esterase Pending Urine Opiates Screen Pending Urine Barbiturates Screen Pending Phencyclidine (PCP) Screen Pending Urine Amphetamines Screen Pending Urine Benzodiazepines Screen Pending Urine Cocaine Screen Pending Urine Marijuana (THC) Screen Pending Vital Signs Last 24 Hour Vital Signs Date Time Temp Pulse Resp B/P (MAP) Pulse Ox O2 Delivery O2 Flow Rate FiO2 05/13/20 19:26 76 20 100 Room Air 21 72 18 99 05/13/20 18:00 106 20 Room Air 05/13/20 18:00 98.8 20 131/80 99 Room Air 05/13/20 17:54 98.8 106 20 131/80 (97) 99 Room Air Respiratory Exam: Rhonchi Cardiovascular Exam: RRR Capillary Refill: Less Than 2 Seconds Peripheral Pulse: Noemí Crowder M.D. May 13, 2020 18:02
[2020-05-13 18:29] LABS: BASOPHILS % (AUTO) 1.3 % (0.0-2.0); EOSINOPHILS % (AUTO) 3.9 % (0.0-3.0); HEMATOCRIT 49.4 % (42.0-52.0); HEMOGLOBIN 15.6 G/DL (14.2-18.0); LYMPHOCYTES % (AUTO) 37.6 % (20.0-45.0); MEAN CORPUSCULAR VOLUME 96 FL (80-99); MONOCYTES % (AUTO) 8.6 % (1.0-10.0); NEUTROPHILS % (AUTO) 48.6 % (45.0-75.0); PLATELET COUNT 242 K/UL (150-450); RED BLOOD COUNT 5.16 M/UL (4.70-6.10); RED CELL DISTRIBUTION WIDTH 13.7 % (11.6-14.8); WHITE BLOOD COUNT 7.4 K/UL (4.8-10.8)
[2020-05-13 18:39] LABS: ANION GAP 8 mmol/L (5-15); BLOOD UREA NITROGEN 15 mg/dL (7-18); CALCIUM 8.7 MG/DL (8.5-10.1); CARBON DIOXIDE 30 MMOL/L (21-32); CHLORIDE 104 MMOL/L (98-107); CREATININE 1.1 MG/DL (0.55-1.30); POTASSIUM 4.2 MMOL/L (3.5-5.1); SODIUM 142 MMOL/L (136-145)
[2020-05-13 18:44] LABS: ALANINE AMINOTRANSFERASE 17 U/L (12-78); ALBUMIN 3.3 G/DL (3.4-5.0); ALKALINE PHOSPHATASE 107 U/L (46-116); ASPARTATE AMINO TRANSFERASE 15 U/L (15-37); BILIRUBIN,TOTAL 0.2 MG/DL (0.2-1.0)
[2020-05-13] MEDS: Albuterol/Ipratropium 3ml neb HHN SCH ×4 (18:52→23:40)
[2020-05-13] MEDS ORDERED: Omnipaque-300 100ml vial INJ ONE (19:00)
--- NOTE | 2020-05-13 19:36 | Diagnostic Imaging Report ---
EXAM: CT Chest With Intravenous Contrast CLINICAL HISTORY: SOB TECHNIQUE: Axial computed tomography images of the chest with intravenous contrast. CTDI is 41.3 mGy and DLP is 145.7 mGy-cm. One or more of the following dose reduction techniques were used: automated exposure control, adjustment of the mA and/or kV according to patient size, use of iterative reconstruction technique. COMPARISON: Same-day chest radiograph. 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 Diffuse right lung bronchial wall thickening could be due to chronic infection. Diffuse right lung subpleural emphysema and basilar extensive air trapping. Pleural space: Moderate-large right low-attenuation layering pleural effusion with passive atelectasis. No pneumothorax. Heart: Unremarkable. No cardiomegaly. No significant pericardial effusion. Bones/joints: Unremarkable. No acute fracture. No dislocation. Soft tissues: Unremarkable. Vasculature: No pulmonary embolism. 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 Severely diminutive size of right pulmonary artery which is likely developmental or due to long-standing prior insults of likely no acute clinical concern. Lymph nodes: Unremarkable. No enlarged lymph nodes. IMPRESSION: 1. No pulmonary embolism. 2. Moderate-large right low-attenuation layering pleural effusion with passive atelectasis. 3. Diffuse right lung bronchial wall thickening could be due to chronic infection. 4. Diffuse right lung subpleural emphysema and basilar extensive air trapping. 5. Otherwise no acute abnormality definitively identified to account for patient presentation. 6. 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 7. 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 8. Consider outpatient pulmonology consultation.
[2020-05-13 20:45] VITALS: BP 101/70
[2020-05-13 20:46] LABS: APPEARANCE,URINE CLEAR; BILIRUBIN, URINE NEGATIVE (NEGATIVE); GLUCOSE, URINE (UA) NEGATIVE (NEGATIVE); KETONES,URINE NEGATIVE (NEGATIVE); LEUKOCYTE ESTERASE ,URINE NEGATIVE (NEGATIVE); NITRITE,URINE NEGATIVE (NEGATIVE); PH,URINE 5 (4.5-8.0); PROTEIN,URINE NEGATIVE (NEGATIVE); UROBILINOGEN,URINE NORMAL MG/DL (0.0-1.0)
[2020-05-13 20:49] LABS: COLOR,URINE YELLOW
[2020-05-13 21:40] VITALS: BP 123/75
[2020-05-13] MEDS ORDERED: Milk of Magnesia 30ml Ud ORAL PRN (22:45)
[2020-05-13] MEDS ORDERED: guaiFENesin /DM 10ml syrup ORAL PRN (22:45)
[2020-05-13] MEDS: cefTRIAXone 1 GM in D5W 55 ML IVPB SCH (23:16)
--- NOTE | 2020-05-13 23:30 | History and Physical Report ---
DATE OF ADMISSION: 05/13/2020 REASON FOR ADMISSION: Pneumonia. HISTORY OF PRESENT ILLNESS: This 39-year-old male has a history of bronchospastic lung disease and Scimitar syndrome, who resides in an assisted living facility. He has had several days of increasing cough, congestion, shortness of breath, and sputum production. He states that he uses an inhaler at home and uses it more when he has asthma attacks. He tried this, it did not help. He also had a COVID-19 swab performed 2 days ago. It was reportedly negative. He came to the emergency room because of worsening symptoms. In the emergency room, abnormal chest radiograph was noted and hospitalization initiated. I have been asked to continue care plan. PAST MEDICAL HISTORY: Bronchospastic lung disease, Scimitar syndrome, constipation, history of hemorrhoids with rectal bleeding. ALLERGIES: None. MEDICATIONS: Reviewed. FAMILY HISTORY: Noncontributory. SOCIAL HISTORY: Active smoker, 20 to 30 pack year history. No alcohol or substance abuse. REVIEW OF SYSTEMS: A 10-point review of systems performed. He was hospitalized here in 2019 with a similar presentation. Otherwise, all systems negative other than noted above. PHYSICAL EXAMINATION: VITAL SIGNS: Blood pressure 131/80, pulse 106, respirations 20, afebrile, oxygen saturation 99% on room air. HEENT: Conjunctivae pink. Oropharynx clear. Mucous membranes moist. NECK: Supple. Jugular venous pressure normal. No accessory muscle use. LUNGS: Coarse breath sounds. Rhonchi. Few wheezes. CARDIAC: Regular rhythm and rate. Normal S1, S2 with no murmur. ABDOMEN: Soft, nontender. EXTREMITIES: No edema. LABORATORY AND DIAGNOSTIC DATA: EKG, sinus rhythm with no acute abnormality. Chest x-ray reveals right lower lobe infiltrate. COVID-19 swab negative. ABG, 7.34, 49, 49. White count 7.4, hemoglobin 15.6. BUN 15, creatinine 1.1. Lactic acid 3.0. IMPRESSION: 1. Community-acquired pneumonia. 2. Bronchospastic lung disease. 3. Nicotine dependence. 4. Lactic acidosis. 5. Hypoxia. 6. Acute respiratory acidosis. 7. Paroxysmal bronchospasm. PLAN: 1. Hydration. 2. Serial lactic acid levels. 3. Empiric antimicrobials. 4. Sputum cultures. 5. DVT prophylaxis. 6. IV steroids. 7. Inhaled bronchodilators. 8. Pulmonary consultation. Tej Teran M.D. DR: ROSEMARY JOB#: [id number] CC:
[2020-05-14] VITALS: BP 130/73
[2020-05-14] MEDS ORDERED: Azithromycin 250 MG in D5W 275 ML IV SCH ×2
[2020-05-14] MEDS: Azithromycin 500 MG in D5W 275 ML IV SCH (01:07)
[2020-05-14] MEDS: Albuterol/Ipratropium 3ml neb HHN SCH ×6 (03:12→21:05)
[2020-05-14 04:00] VITALS: BP 112/61
[2020-05-14] MEDS: Solu-MEDROL 125mg Inj IVP SCH ×2 (06:08→18:21)
[2020-05-14 06:38] LABS: HEMATOCRIT 43.8 % (42.0-52.0); HEMOGLOBIN 14.5 G/DL (14.2-18.0); MEAN CORPUSCULAR VOLUME 90 FL (80-99); PLATELET COUNT 241 K/UL (150-450); RED BLOOD COUNT 4.87 M/UL (4.70-6.10); RED CELL DISTRIBUTION WIDTH 12.7 % (11.6-14.8); WHITE BLOOD COUNT 7.8 K/UL (4.8-10.8)
[2020-05-14 07:16] LABS: ALANINE AMINOTRANSFERASE 7 U/L (12-78); ALBUMIN 3.1 G/DL (3.4-5.0); ALBUMIN/GLOBULIN RATIO 1.1 (1.0-2.7); ALKALINE PHOSPHATASE 83 U/L (46-116); ANION GAP 8 mmol/L (5-15); ASPARTATE AMINO TRANSFERASE 12 U/L (15-37); BILIRUBIN,TOTAL 0.2 MG/DL (0.2-1.0); BLOOD UREA NITROGEN 9 mg/dL (7-18); CALCIUM 8.5 MG/DL (8.5-10.1); CARBON DIOXIDE 27 MMOL/L (21-32); CHLORIDE 104 MMOL/L (98-107); CREATININE 1.2 MG/DL (0.55-1.30); POTASSIUM 4.3 MMOL/L (3.5-5.1); SODIUM 139 MMOL/L (136-145)
[2020-05-14 08:00] VITALS: BP 112/56
[2020-05-14] MEDS: Docusate 100mg cap ORAL SCH ×2 (09:15→18:00)
[2020-05-14] MEDS: Heparin 5000 units/ml inj SUBQ SCH ×2 (09:18→20:51)
[2020-05-14 12:00] VITALS: BP 120/66
--- NOTE | 2020-05-14 13:30 | Consultation ---
DATE OF CONSULTATION: 05/14/2020 PULMONARY CONSULTATION CONSULTING PHYSICIAN: Bud Sawant MD. HISTORY OF PRESENT ILLNESS: This is a 39-year-old active smoker with a history of Scimitar syndrome, was sent in from an assisted living facility. He reports cough and shortness of breath. He has been using inhalers without relief. He had a recent COVID-19 test, which was negative. He was admitted to the hospital after his imaging studies confirmed pneumonia. Upon review of his imaging studies, I note that he has hypogenetic right lung syndrome, hypoplastic right lung. There was no pulmonary embolism. There was a moderate right effusion with pneumonia in the right lung. There is also septal emphysema. Currently, he states he is feeling better. He is anxious to go home. PAST MEDICAL HISTORY: Scimitar syndrome, chronic tobacco usage. HOME MEDICATIONS: Reviewed and reconciled in the chart. SOCIAL HISTORY: Lives in a skilled facility, is an active smoker. REVIEW OF SYSTEMS: Denies any headaches, hematemesis, melena, or hematochezia. PHYSICAL EXAMINATION: GENERAL: Reveals a 39-year-old male. VITAL SIGNS: Blood pressure is 120/60, heart rate 84, respirations 20. He is afebrile. O2 saturation 100% on room air. HEENT: Unremarkable. LUNGS: Clear breath sounds bilaterally. ABDOMEN: Soft. EXTREMITIES: There is no edema. NEUROLOGIC: Nonfocal. LABORATORY DATA: Lab testing shows normal CBC and BMP. IMAGING: Discussed above. IMPRESSION: 1. Right pleural effusion. 2. Right lung pneumonia. 3. Scimitar syndrome. DISCUSSION: Admit to the hospital. Agree with current management and care. Broad spectrum antibiotics. Advised tobacco cessation. Steroids. DVT and GI prophylaxes. We will follow. Bud Sawant M.D. DR: CAMILLE JOB#: [id number] CC:
--- NOTE | 2020-05-14 15:00 | Diagnostic Imaging Report ---
Indication: Shortness of breath Technique: One view of the chest Comparison: 05/22/2019 Findings: Interim development of opacity at the right lung base. There appears to be volume loss in this area, most likely represents a significant component of atelectasis. There is probably some consolidation and possibly some pleural fluid as well. The heart is enlarged. The left lung and pleural space remain clear. Interstitial prominence in the upper right lung is likely chronic.. Impression: Right basilar opacity and volume loss, likely combination of infiltrate and atelectasis. There may be some pleural fluid as well. Cardiomegaly
[2020-05-14 16:00] VITALS: BP 105/66
--- NOTE | 2020-05-14 19:12 | Cardiology Progress Note ---
Subjective DATE OF SERVICE: May 14, 2020 Still feels very ill. C/O cough and SOB. Appetite poor. Objective Last 24 Hour Vital Signs Date Time Temp Pulse Resp B/P (MAP) Pulse Ox O2 Delivery O2 Flow Rate FiO2 05/14/20 17:22 87 20 100 Nasal Cannula 2.0 28 84 18 99 05/14/20 16:00 97.6 68 20 105/66 (79) 98 05/14/20 16:00 101 05/14/20 12:17 94 20 100 Nasal Cannula 2.0 28 100 18 94 05/14/20 12:00 109 05/14/20 12:00 97.9 81 20 120/66 (84) 98 05/14/20 09:00 Nasal Cannula 2.0 05/14/20 08:34 96 Room Air 21 05/14/20 08:34 91 20 100 Nasal Cannula 2.0 28 88 18 96 05/14/20 08:00 97.8 66 20 112/56 (74) 98 05/14/20 08:00 86 05/14/20 04:00 54 05/14/20 04:00 98.8 56 18 112/61 (78) 97 05/14/20 03:22 65 20 100 Nasal Cannula 2.0 28 05/14/20 03:12 68 20 99 Nasal Cannula 2.0 28 05/14/20 00:48 Room Air 2.0 05/14/20 00:00 97.3 83 20 130/73 (92) 100 05/14/20 00:00 72 05/13/20 23:50 82 20 100 Nasal Cannula 2.0 28 05/13/20 23:40 78 20 100 Nasal Cannula 2.0 28 05/13/20 23:40 100 Nasal Cannula 2.0 28 05/13/20 21:40 98.1 79 22 123/75 (91) 98 05/13/20 21:15 98.5 78 20 112/71 99 Room Air 05/13/20 20:45 98.9 80 22 101/70 100 Room Air 05/13/20 19:26 76 20 100 Room Air 21 72 18 99 ROS: unchanged from my evaluation of 05/13/20 HEENT: normal ENT inspection RHYTHM: NSR LUNGS: diminished breath sounds - right sided, right-sided rhonchi, rales right CARDIAC: normal rate, regular rhythm, normal S1 and S2 ABDOMEN: normal bowel sounds, non tender, soft, no organomegaly EXTREMITIES: non-tender, no calf tenderness, No edema Laboratory Tests Test 05/13/20 20:30 05/13/20 20:35 05/14/20 06:07 05/14/20 18:30 Lactic Acid Level 3.00 mmol/L (0.66-2.22) H 2.90 mmol/L (0.4-2.0) H Pending Urine Color Yellow Urine Appearance Clear Urine pH 5 (4.5-8.0) Urine Specific [place] 1.030 (1.005-1.035) Urine Protein Negative (NEGATIVE) Urine Glucose (UA) Negative (NEGATIVE) Urine Ketones Negative (NEGATIVE) Urine Blood Negative (NEGATIVE) Urine Nitrite Negative (NEGATIVE) Urine Bilirubin Negative (NEGATIVE) Urine Urobilinogen Normal MG/DL (0.0-1.0) Urine Leukocyte Esterase Negative (NEGATIVE) Urine Opiates Screen Negative (NEGATIVE) Urine Barbiturates Screen Negative (NEGATIVE) Phencyclidine (PCP) Screen Negative (NEGATIVE) Urine Amphetamines Screen Positive (NEGATIVE) H Urine Benzodiazepines Screen Negative (NEGATIVE) Urine Cocaine Screen Negative (NEGATIVE) Urine Marijuana (THC) Screen Negative (NEGATIVE) White Blood Count 7.8 K/UL (4.8-10.8) Red Blood Count 4.87 M/UL (4.70-6.10) Hemoglobin 14.5 G/DL (14.2-18.0) Hematocrit 43.8 % (42.0-52.0) Mean Corpuscular Volume 90 FL (80-99) Mean Corpuscular Hemoglobin 29.8 PG (27.0-31.0) Mean Corpuscular Hemoglobin Concent 33.1 G/DL (32.0-36.0) Red Cell Distribution Width 12.7 % (11.6-14.8) Platelet Count 241 K/UL (150-450) Mean Platelet Volume 5.5 FL (6.5-10.1) L Neutrophils (%) (Auto) % (45.0-75.0) Lymphocytes (%) (Auto) % (20.0-45.0) Monocytes (%) (Auto) % (1.0-10.0) Eosinophils (%) (Auto) % (0.0-3.0) Basophils (%) (Auto) % (0.0-2.0) Differential Total Cells Counted 100 Neutrophils % (Manual) 86 % (45-75) H Lymphocytes % (Manual) 12 % (20-45) L Monocytes % (Manual) 2 % (1-10) Eosinophils % (Manual) 0 % (0-3) Basophils % (Manual) 0 % (0-2) Band Neutrophils 0 % (0-8) Platelet Estimate Adequate Platelet Morphology Normal Red Blood Cell Morphology Normal Sodium Level 139 MMOL/L (136-145) Potassium Level 4.3 MMOL/L (3.5-5.1) Chloride Level 104 MMOL/L (98-107) Carbon Dioxide Level 27 MMOL/L (21-32) Anion Gap 8 mmol/L (5-15) Blood Urea Nitrogen 9 mg/dL (7-18) Creatinine 1.2 MG/DL (0.55-1.30) Estimat Glomerular Filtration Rate > 60 mL/min (>60) Glucose Level 157 MG/DL (74-106) H Calcium Level 8.5 MG/DL (8.5-10.1) Total Bilirubin 0.2 MG/DL (0.2-1.0) Aspartate Amino Transf (AST/SGOT) 12 U/L (15-37) L Alanine Aminotransferase (ALT/SGPT) 7 U/L (12-78) L Alkaline Phosphatase 83 U/L (46-116) Troponin I 0.013 ng/mL (0.000-0.056) Total Protein 5.8 G/DL (6.4-8.2) L Albumin 3.1 G/DL (3.4-5.0) L Globulin 2.7 g/dL Albumin/Globulin Ratio 1.1 (1.0-2.7) Thyroid Stimulating Hormone (TSH) 0.057 uiU/mL (0.358-3.740) Microbiology Date/Time Source Procedure Growth Status 05/13/20 18:00 Nasopharynx SARS-CoV-2 RdRp Gene Assay - Final Complete Assessment/Plan Assessment/Plan Community acquired PNA COPD Paroxysmal bronchospasm Parapneumonic effusion Lactic acidosis Nicotine addiction Scimitar syndrome Abx IV steroids Inhaled bronchodilators IVFluids Serial lactic acid levels Nicotine patch O2 suppl Tej Teran MD May 14, 2020 19:12
[2020-05-14 20:00] VITALS: BP 119/92
[2020-05-14] MEDS: cefTRIAXone 1 GM in D5W 55 ML IVPB SCH (21:49)
[2020-05-15] VITALS: BP 129/82
[2020-05-15] MEDS: Azithromycin 500 MG in D5W 275 ML IV SCH (00:38)
[2020-05-15] MEDS: Albuterol/Ipratropium 3ml neb HHN SCH ×6 (01:58→22:47)
[2020-05-15 04:00] VITALS: BP 119/79
[2020-05-15] MEDS: Solu-MEDROL 125mg Inj IVP SCH ×2 (05:40→17:08)
[2020-05-15 08:00] VITALS: BP 132/93
[2020-05-15] MEDS: Docusate 100mg cap ORAL SCH ×2 (08:29→17:11)
[2020-05-15] MEDS: Heparin 5000 units/ml inj SUBQ SCH ×2 (08:29→21:44)
--- NOTE | 2020-05-15 10:57 | Pulmonology Progress Note ---
Subjective Interval Events: None new reported Constitutional: Reports: no symptoms HEENT: Repors: no symptoms Respiratory: Reports: no symptoms Cardiovascular: Reports: no symptoms Gastrointestinal/Abdominal: Reports: no symptoms Allergies: Coded Allergies: No Known Allergies (Unverified , 03/24/18) Objective Last 24 Hour Vital Signs Date Time Temp Pulse Resp B/P (MAP) Pulse Ox O2 Delivery O2 Flow Rate FiO2 05/15/20 09:00 Nasal Cannula 2.0 05/15/20 08:00 93 05/15/20 08:00 97.7 90 22 132/93 (106) 100 05/15/20 07:34 99 Nasal Cannula 2.0 28 05/15/20 07:34 86 20 100 Nasal Cannula 2.0 28 99 20 99 05/15/20 04:00 99.0 92 20 119/79 (92) 99 05/15/20 04:00 92 05/15/20 02:01 86 20 100 Nasal Cannula 2.0 28 84 20 98 05/15/20 00:00 83 05/15/20 00:00 98.6 83 21 129/82 (98) 99 05/14/20 21:13 86 20 100 Nasal Cannula 2.0 28 88 20 97 05/14/20 21:00 Nasal Cannula 2.0 05/14/20 20:00 97.7 77 20 119/92 (101) 99 05/14/20 20:00 77 05/14/20 19:46 97 Room Air 21 05/14/20 17:22 87 20 100 Nasal Cannula 2.0 28 84 18 99 05/14/20 16:00 97.6 68 20 105/66 (79) 98 05/14/20 16:00 101 05/14/20 12:17 94 20 100 Nasal Cannula 2.0 28 100 18 94 05/14/20 12:00 109 05/14/20 12:00 97.9 81 20 120/66 (84) 98 Intake and Output 05/14/20 05/15/20 19:00 07:00 Intake Total 500 ml Balance 500 ml Intake Oral 500 ml # Voids 7 6 General Appearance: no acute distress HEENT: normocephalic Respiratory: chest wall non-tender, decreased breath sounds Cardiovascular: normal peripheral pulses, normal rate Abdomen: normal bowel sounds, soft, non tender Microbiology Date/Time Source Procedure Growth Status 05/14/20 06:30 Sputum Gram Stain - Final Resulted 05/14/20 06:30 Sputum Sputum Culture - Preliminary NORMAL UPPER RESPIRATORY ENA AT 24 ... Resulted 05/13/20 18:25 Blood Blood Culture - Preliminary NO GROWTH AFTER 24 HOURS Resulted 05/13/20 18:15 Blood Blood Culture - Preliminary NO GROWTH AFTER 24 HOURS Resulted 05/13/20 18:00 Nasopharynx SARS-CoV-2 RdRp Gene Assay - Final Complete Laboratory Tests 05/14/20 18:30: Lactic Acid Level 3.60H 05/15/20 06:14: Lactic Acid Level 2.90H Current Medications Medications (Trade) Dose Ordered Sig/Niki Route PRN Reason Start Time Stop Time Status Last Admin Dose Admin Acetaminophen (Tylenol) 650 mg Q4H PRN ORAL Mild Pain (Pain Scale 1-3) 05/13/20 22:45 06/12/20 22:44 05/15/20 00:22 Albuterol/ Ipratropium (Albuterol/ Ipratropium) 3 ml Q4HRT HHN 05/13/20 23:00 05/18/20 22:59 05/15/20 07:24 Azithromycin 500 mg/Dextrose 275 ml @ 275 mls/hr Q24HRS IV 05/14/20 01:00 05/20/20 01:59 05/15/20 00:38 Ceftriaxone Sodium 1 gm/ Dextrose 55 ml @ 110 mls/hr Q24H IVPB 05/13/20 23:00 05/20/20 22:59 05/14/20 21:49 Docusate Sodium (Colace) 100 mg TWICE A DAY ORAL 05/14/20 09:00 06/13/20 08:59 05/14/20 09:15 Famotidine (Pepcid) 20 mg DAILY ORAL 05/14/20 09:00 08/12/20 08:59 05/15/20 08:25 Guaifenesin/ Dextromethorphan (Robitussin DM Syrup) 10 ml Q4H PRN ORAL For Cough 05/13/20 22:45 08/11/20 22:44 Heparin Sodium (Porcine) (Heparin 5000 units/ml) 5,000 units EVERY 12 HOURS SUBQ 05/14/20 09:00 06/28/20 08:59 05/15/20 08:29 Magnesium Hydroxide (Mom) 30 ml DAILYPRN PRN ORAL Constipation 05/13/20 22:45 06/12/20 22:44 Methylprednisolone Sodium Succinate (Solu-MEDROL) 60 mg Q12H IVP 05/14/20 06:00 08/12/20 05:59 05/15/20 05:40 Nicotine (Nicoderm) 1 patch Q24H TDERMAL 05/13/20 22:45 08/11/20 22:44 05/14/20 21:48 Ondansetron HCl (Zofran) 4 mg Q6H PRN IVP Nausea & Vomiting 05/13/20 22:45 06/12/20 22:44 05/15/20 00:22 Sodium Chloride 1,000 ml @ 125 mls/hr Q8H IV 05/13/20 22:45 06/12/20 22:44 05/15/20 07:19 Assessment/Plan Assessment/Plan IMPRESSION: 1. Right pleural effusion. 2. Right lung pneumonia. 3. Scimitar syndrome. DISCUSSION: Agree with current management and care. Broad spectrum antibiotics. Advised tobacco cessation. Steroids. DVT and GI prophylaxes. I will follow. Arron Krishnan Omar Syed MD May 15, 2020 10:57
[2020-05-15 12:00] VITALS: BP 119/67
[2020-05-15 12:33] LABS: ALANINE AMINOTRANSFERASE 19 U/L (12-78); ALBUMIN 3.2 G/DL (3.4-5.0); ALBUMIN/GLOBULIN RATIO 1.1 (1.0-2.7); ALKALINE PHOSPHATASE 80 U/L (46-116); ANION GAP 7 mmol/L (5-15); ASPARTATE AMINO TRANSFERASE 15 U/L (15-37); BILIRUBIN,TOTAL 0.1 MG/DL (0.2-1.0); BLOOD UREA NITROGEN 8 mg/dL (7-18); CALCIUM 8.4 MG/DL (8.5-10.1); CARBON DIOXIDE 29 MMOL/L (21-32); CHLORIDE 105 MMOL/L (98-107); GAMMA GLUTAMYL TRANSPEPTIDASE 19 U/L (5-85); LACTATE DEHYDROGENASE 148 U/L (81-234); PHOSPHORUS 3.6 MG/DL (2.5-4.9); POTASSIUM 4.2 MMOL/L (3.5-5.1); SODIUM 141 MMOL/L (136-145)
[2020-05-15 16:00] VITALS: BP 135/85
--- NOTE | 2020-05-15 19:48 | Consultation ---
Consult Note Consult Note asked to eval for high lactic level. Full note to follow Patient is a 39-year-old male past medical history of asthma current smoker who presents to the ER complaining of asthma exacerbation. Patient complains of shortness of breath for the past several days. He states that it got worse today. Patient states that he tried using his inhaler at home but it did not help his symptoms. Patient called 911 and was brought in by EMS. Patient was given a breathing treatment by EMS prior to arrival specifically albuterol which she states did not really help the symptoms. Patient denies any fever or chills. He denies any recent travel. Denies any chest pain, abdominal pain, lower extremity pain or edema. He states that he had a negative COVID-19 test 2 days ago. Patient states that he has been admitted in the past for his asthma. Allergies: No Known Allergies (Unverified , 03/24/18) COVID-19 Screening Contact w/high risk pt: No Experienced COVID-19 symptoms?: Yes COVID-19 Testing performed DIRECTOR OF RECRUITMENT: Yes COVID-19 Screening: Negative COVID-19 COVID-19 Testing Source: couple of days aggo Hx Asthma: Yes VITAL SIGNS: Blood pressure 131/80, pulse 106, respirations 20, afebrile, oxygen saturation 99% on room air. HEENT: Conjunctivae pink. Oropharynx clear. Mucous membranes moist. NECK: Supple. Jugular venous pressure normal. No accessory muscle use. LUNGS: Coarse breath sounds. Rhonchi. Few wheezes. CARDIAC: Regular rhythm and rate. Normal S1, S2 with no murmur. ABDOMEN: Soft, nontender. EXTREMITIES: No edema. LABORATORY AND DIAGNOSTIC DATA: EKG, sinus rhythm with no acute abnormality. Chest x-ray reveals right lower lobe infiltrate. COVID-19 swab negative. ABG, 7.34, 49, 49. White count 7.4, hemoglobin 15.6. BUN 15, creatinine 1.1. Lactic acid 3.0. . Assessment/Plan Lactic acidosis Bronchospastic lung disease, hypoxia Community-acquired pneumonia Nicotine dependence Urine positive for amphetamine Scimitar Syndrome Plan: Order labs Check ABG Investigate etiology of lactic acidosis Angel Westfall MD May 15, 2020 19:48
[2020-05-15 20:00] VITALS: BP 153/99
[2020-05-15] MEDS: cefTRIAXone 1 GM in D5W 55 ML IVPB SCH (22:50)
[2020-05-16] VITALS: BP 122/74
[2020-05-16] MEDS: Azithromycin 500 MG in D5W 275 ML IV SCH (00:17)
--- NOTE | 2020-05-16 02:01 | Cardiology Progress Note ---
Subjective DATE OF SERVICE: May 15, 2020 Still feels very ill. C/O cough and SOB. Appetite poor. CT scan reveals large right peripneumonic effusion. Objective Last 24 Hour Vital Signs Date Time Temp Pulse Resp B/P (MAP) Pulse Ox O2 Delivery O2 Flow Rate FiO2 05/16/20 00:00 98.1 86 24 122/74 (90) 99 05/15/20 22:47 89 20 100 Nasal Cannula 2.0 28 85 20 97 05/15/20 22:16 98.1 05/15/20 21:00 Nasal Cannula 2.0 05/15/20 20:00 98.1 77 22 153/99 (117) 96 05/15/20 19:47 86 20 100 Nasal Cannula 2.0 28 88 20 98 05/15/20 19:46 98 Nasal Cannula 2.0 28 05/15/20 16:00 98.1 91 22 135/85 (102) 96 05/15/20 16:00 99 05/15/20 15:54 75 20 100 Nasal Cannula 2.0 28 71 20 97 05/15/20 12:00 92 05/15/20 12:00 97.8 91 21 119/67 (84) 99 05/15/20 11:25 81 20 100 Nasal Cannula 2.0 28 74 20 98 05/15/20 09:00 Nasal Cannula 2.0 05/15/20 08:00 93 05/15/20 08:00 97.7 90 22 132/93 (106) 100 05/15/20 07:34 99 Nasal Cannula 2.0 28 05/15/20 07:34 86 20 100 Nasal Cannula 2.0 28 99 20 99 05/15/20 04:00 99.0 92 20 119/79 (92) 99 05/15/20 04:00 92 05/15/20 02:01 86 20 100 Nasal Cannula 2.0 28 84 20 98 ROS: unchanged from my evaluation of 05/13/20 HEENT: normal ENT inspection RHYTHM: NSR LUNGS: diminished breath sounds - right sided, right-sided rhonchi, rales right CARDIAC: normal rate, regular rhythm, normal S1 and S2 ABDOMEN: normal bowel sounds, non tender, soft, no organomegaly EXTREMITIES: non-tender, no calf tenderness, No edema Laboratory Tests Test 05/15/20 06:14 05/15/20 13:23 Sodium Level 141 MMOL/L (136-145) Potassium Level 4.2 MMOL/L (3.5-5.1) Chloride Level 105 MMOL/L (98-107) Carbon Dioxide Level 29 MMOL/L (21-32) Anion Gap 7 mmol/L (5-15) Blood Urea Nitrogen 8 mg/dL (7-18) Creatinine 1.0 MG/DL (0.55-1.30) Estimat Glomerular Filtration Rate > 60 mL/min (>60) Glucose Level 128 MG/DL (74-106) H Lactic Acid Level 2.90 mmol/L (0.4-2.0) H Calcium Level 8.4 MG/DL (8.5-10.1) L Phosphorus Level 3.6 MG/DL (2.5-4.9) Magnesium Level 2.0 MG/DL (1.8-2.4) Total Bilirubin 0.1 MG/DL (0.2-1.0) L Gamma Glutamyl Transpeptidase 19 U/L (5-85) Aspartate Amino Transf (AST/SGOT) 15 U/L (15-37) Alanine Aminotransferase (ALT/SGPT) 19 U/L (12-78) Alkaline Phosphatase 80 U/L (46-116) Lactate Dehydrogenase 148 U/L (81-234) C-Reactive Protein, Quantitative < 0.4 mg/dL (0.00-0.90) Total Protein 6.0 G/DL (6.4-8.2) L Albumin 3.2 G/DL (3.4-5.0) L Globulin 2.8 g/dL Albumin/Globulin Ratio 1.1 (1.0-2.7) Arterial Blood pH 7.356 (7.350-7.450) Arterial Blood Partial Pressure CO2 47.6 mmHg (35.0-45.0) H Arterial Blood Partial Pressure O2 81.3 mmHg (75.0-100.0) Arterial Blood HCO3 26.0 mmol/L (22.0-26.0) Arterial Blood Oxygen Saturation 96.0 % (95-100) Arterial Blood Base Excess 0 (-2-2) Jesus Test Positive Microbiology Date/Time Source Procedure Growth Status 05/14/20 06:30 Sputum Gram Stain - Final Resulted 05/14/20 06:30 Sputum Sputum Culture - Preliminary NORMAL UPPER RESPIRATORY ENA AT 24 ... Resulted 05/13/20 18:25 Blood Blood Culture - Preliminary NO GROWTH AFTER 24 HOURS Resulted 05/13/20 18:15 Blood Blood Culture - Preliminary NO GROWTH AFTER 24 HOURS Resulted 05/13/20 18:00 Nasopharynx SARS-CoV-2 RdRp Gene Assay - Final Complete Assessment/Plan Assessment/Plan Community acquired PNA Pleural effusion COPD Paroxysmal bronchospasm Parapneumonic effusion Lactic acidosis Nicotine addiction Scimitar syndrome Abx Consider thorocentesis IV steroids Inhaled bronchodilators IVFluids Serial lactic acid levels Nicotine patch O2 suppl Tej Teran MD May 16, 2020 02:01
[2020-05-16] MEDS: Albuterol/Ipratropium 3ml neb HHN SCH ×2 (02:03→07:33)
[2020-05-16 04:00] VITALS: BP 136/79
[2020-05-16] MEDS ORDERED: Solu-MEDROL 40mg Inj IVP SCH (06:00)
[2020-05-16 06:26] LABS: BASOPHILS % (AUTO) 1.6 % (0.0-2.0); HEMOGLOBIN 14.3 G/DL (14.2-18.0); LYMPHOCYTES % (AUTO) 8.5 % (20.0-45.0); MEAN CORPUSCULAR VOLUME 90 FL (80-99); MONOCYTES % (AUTO) 8.1 % (1.0-10.0); NEUTROPHILS % (AUTO) 81.8 % (45.0-75.0); PLATELET COUNT 216 K/UL (150-450); RED BLOOD COUNT 4.66 M/UL (4.70-6.10); RED CELL DISTRIBUTION WIDTH 13.2 % (11.6-14.8); WHITE BLOOD COUNT 13.5 K/UL (4.8-10.8)
[2020-05-16 07:23] LABS: ALANINE AMINOTRANSFERASE 26 U/L (12-78); ALBUMIN 3.1 G/DL (3.4-5.0); ALBUMIN/GLOBULIN RATIO 1.2 (1.0-2.7); ALKALINE PHOSPHATASE 85 U/L (46-116); ANION GAP 7 mmol/L (5-15); ASPARTATE AMINO TRANSFERASE 21 U/L (15-37); BILIRUBIN,TOTAL 0.1 MG/DL (0.2-1.0); BLOOD UREA NITROGEN 10 mg/dL (7-18); CALCIUM 8.5 MG/DL (8.5-10.1); CARBON DIOXIDE 29 MMOL/L (21-32); CHLORIDE 103 MMOL/L (98-107); CREATININE 1.1 MG/DL (0.55-1.30); GAMMA GLUTAMYL TRANSPEPTIDASE 19 U/L (5-85); PHOSPHORUS 3.6 MG/DL (2.5-4.9); SODIUM 139 MMOL/L (136-145)
[2020-05-16 08:00] VITALS: BP 149/104
[2020-05-16] MEDS: Docusate 100mg cap ORAL SCH ×2 (08:46→17:44)
[2020-05-16] MEDS: Heparin 5000 units/ml inj SUBQ SCH ×2 (08:49→21:47)
--- NOTE | 2020-05-16 09:41 | Pulmonology Progress Note ---
Subjective Interval Events: None new reported Constitutional: Reports: no symptoms HEENT: Repors: no symptoms Respiratory: Reports: no symptoms Cardiovascular: Reports: no symptoms Gastrointestinal/Abdominal: Reports: no symptoms Allergies: Coded Allergies: No Known Allergies (Unverified , 03/24/18) Objective Last 24 Hour Vital Signs Date Time Temp Pulse Resp B/P (MAP) Pulse Ox O2 Delivery O2 Flow Rate FiO2 05/16/20 08:58 Nasal Cannula 2.0 05/16/20 08:00 97.1 80 24 149/104 (119) 96 05/16/20 07:43 98 Nasal Cannula 2.0 28 05/16/20 07:43 76 20 98 Nasal Cannula 2.0 28 73 20 97 05/16/20 04:00 98.1 74 24 136/79 (98) 96 05/16/20 04:00 98 05/16/20 02:03 82 20 100 Nasal Cannula 2.0 28 81 20 98 05/16/20 00:00 85 05/16/20 00:00 98.1 86 24 122/74 (90) 99 05/15/20 22:47 89 20 100 Nasal Cannula 2.0 28 85 20 97 05/15/20 22:16 98.1 05/15/20 21:00 Nasal Cannula 2.0 05/15/20 20:00 92 05/15/20 20:00 98.1 77 22 153/99 (117) 96 05/15/20 19:47 86 20 100 Nasal Cannula 2.0 28 88 20 98 05/15/20 19:46 98 Nasal Cannula 2.0 28 05/15/20 16:00 98.1 91 22 135/85 (102) 96 05/15/20 16:00 99 05/15/20 15:54 75 20 100 Nasal Cannula 2.0 28 71 20 97 05/15/20 12:00 92 05/15/20 12:00 97.8 91 21 119/67 (84) 99 05/15/20 11:25 81 20 100 Nasal Cannula 2.0 28 74 20 98 Intake and Output 05/15/20 05/16/20 19:00 07:00 Intake Total 480 ml Balance 480 ml Intake Oral 480 ml # Voids 5 5 General Appearance: no acute distress HEENT: normocephalic Respiratory: chest wall non-tender, decreased breath sounds Cardiovascular: normal peripheral pulses, normal rate Abdomen: normal bowel sounds, soft, non tender Microbiology Date/Time Source Procedure Growth Status 05/14/20 06:30 Sputum Gram Stain - Final Complete 05/14/20 06:30 Sputum Sputum Culture - Final NORMAL UPPER RESPIRATORY ENA AT 48 ... Complete 05/13/20 18:25 Blood Blood Culture - Preliminary NO GROWTH AFTER 48 HOURS Resulted 05/13/20 18:15 Blood Blood Culture - Preliminary NO GROWTH AFTER 48 HOURS Resulted 05/13/20 18:00 Nasopharynx SARS-CoV-2 RdRp Gene Assay - Final Complete Laboratory Tests 05/15/20 13:23: Arterial Blood pH 7.356, Arterial Blood Partial Pressure CO2 47.6H, Arterial Blood Partial Pressure O2 81.3, Arterial Blood HCO3 26.0, Arterial Blood Oxygen Saturation 96.0, Arterial Blood Base Excess 0, Jesus Test Positive 05/16/20 06:02: White Blood Count 13.5H, Red Blood Count 4.66L, Hemoglobin 14.3, Hematocrit 42.0, Mean Corpuscular Volume 90, Mean Corpuscular Hemoglobin 30.6, Mean Corpuscular Hemoglobin Concent 34.0, Red Cell Distribution Width 13.2, Platelet Count 216, Mean Platelet Volume 5.2L, Neutrophils (%) (Auto) 81.8H, Lymphocytes (%) (Auto) 8.5L, Monocytes (%) (Auto) 8.1, Eosinophils (%) (Auto) 0.0, Basophils (%) (Auto) 1.6, Prothrombin Time 10.7, Prothromb Time International Ratio 1.0, Activated Partial Thromboplast Time 27, Sodium Level 139, Potassium Level 4.0, Chloride Level 103, Carbon Dioxide Level 29, Anion Gap 7, Blood Urea Nitrogen 10, Creatinine 1.1, Estimat Glomerular Filtration Rate > 60, Glucose Level 125H, Lactic Acid Level 2.90H, Uric Acid 3.5, Calcium Level 8.5, Phosphorus Level 3.6, Magnesium Level 2.1, Total Bilirubin 0.1L, Gamma Glutamyl Transpeptidase 19, Aspartate Amino Transf (AST/SGOT) 21, Alanine Aminotransferase (ALT/SGPT) 26, Alkaline Phosphatase 85, Troponin I 0.032, Pro-B-Type Natriuretic Peptide 1091H, Total Protein 5.7L, Albumin 3.1L, Globulin 2.6, Albumin/Globulin Ratio 1.2 Current Medications Medications (Trade) Dose Ordered Sig/Niki Route PRN Reason Start Time Stop Time Status Last Admin Dose Admin Acetaminophen (Tylenol) 650 mg Q4H PRN ORAL Mild Pain (Pain Scale 1-3) 05/13/20 22:45 06/12/20 22:44 05/15/20 21:46 Albuterol/ Ipratropium (Albuterol/ Ipratropium) 3 ml Q4HRT HHN 05/13/20 23:00 05/18/20 22:59 05/16/20 07:33 Azithromycin 500 mg/Dextrose 275 ml @ 275 mls/hr Q24HRS IV 05/14/20 01:00 05/20/20 01:59 05/16/20 00:17 Ceftriaxone Sodium 1 gm/ Dextrose 55 ml @ 110 mls/hr Q24H IVPB 05/13/20 23:00 05/20/20 22:59 05/15/20 22:50 Docusate Sodium (Colace) 100 mg TWICE A DAY ORAL 05/14/20 09:00 06/13/20 08:59 05/14/20 09:15 Famotidine (Pepcid) 20 mg DAILY ORAL 05/14/20 09:00 08/12/20 08:59 05/16/20 08:48 Guaifenesin/ Dextromethorphan (Robitussin DM Syrup) 10 ml Q4H PRN ORAL For Cough 05/13/20 22:45 08/11/20 22:44 Heparin Sodium (Porcine) (Heparin 5000 units/ml) 5,000 units EVERY 12 HOURS SUBQ 05/14/20 09:00 06/28/20 08:59 05/16/20 08:49 Magnesium Hydroxide (Mom) 30 ml DAILYPRN PRN ORAL Constipation 05/13/20 22:45 06/12/20 22:44 Methylprednisolone Sodium Succinate (Solu-MEDROL) 30 mg Q12H IVP 05/16/20 06:00 08/14/20 05:59 05/16/20 05:11 Nicotine (Nicoderm) 1 patch Q24H TDERMAL 05/13/20 22:45 08/11/20 22:44 05/15/20 21:45 Ondansetron HCl (Zofran) 4 mg Q6H PRN IVP Nausea & Vomiting 05/13/20 22:45 06/12/20 22:44 05/15/20 00:22 Sodium Chloride 1,000 ml @ 125 mls/hr Q8H IV 05/13/20 22:45 06/12/20 22:44 05/16/20 06:52 Assessment/Plan Assessment/Plan IMPRESSION: 1. Right pleural effusion. 2. Right lung pneumonia. 3. Scimitar syndrome. DISCUSSION: Agree with current management and care. Broad spectrum antibiotics. Advised tobacco cessation. Steroids. DVT and GI prophylaxes. I will follow. Arron Krishnan Omar Syed MD May 16, 2020 09:41
[2020-05-16 12:00] VITALS: BP 158/119
--- NOTE | 2020-05-16 12:44 | Cardiology Progress Note ---
Subjective DATE OF SERVICE: May 16, 2020 Feeling better with less cough and SOB. Appetite poor. CT scan reveals right peripneumonic effusion - but not enough to tap per pulmonary. Remains with lactic acid elevation; ABG noted. 2D Echo with normal LVEF and no pulmonary hypertension. Objective Last 24 Hour Vital Signs Date Time Temp Pulse Resp B/P (MAP) Pulse Ox O2 Delivery O2 Flow Rate FiO2 05/16/20 12:00 97.1 82 22 158/119 (132) 98 05/16/20 08:58 Nasal Cannula 2.0 05/16/20 08:00 97.1 80 24 149/104 (119) 96 05/16/20 08:00 83 05/16/20 07:43 98 Nasal Cannula 2.0 28 05/16/20 07:43 76 20 98 Nasal Cannula 2.0 28 73 20 97 05/16/20 04:00 98.1 74 24 136/79 (98) 96 05/16/20 04:00 98 05/16/20 02:03 82 20 100 Nasal Cannula 2.0 28 81 20 98 05/16/20 00:00 85 05/16/20 00:00 98.1 86 24 122/74 (90) 99 05/15/20 22:47 89 20 100 Nasal Cannula 2.0 28 85 20 97 05/15/20 22:16 98.1 05/15/20 21:00 Nasal Cannula 2.0 05/15/20 20:00 92 05/15/20 20:00 98.1 77 22 153/99 (117) 96 05/15/20 19:47 86 20 100 Nasal Cannula 2.0 28 88 20 98 05/15/20 19:46 98 Nasal Cannula 2.0 28 05/15/20 16:00 98.1 91 22 135/85 (102) 96 05/15/20 16:00 99 05/15/20 15:54 75 20 100 Nasal Cannula 2.0 28 71 20 97 ROS: unchanged from my evaluation of 05/13/20 HEENT: normal ENT inspection RHYTHM: NSR LUNGS: diminished breath sounds - right sided, right-sided rhonchi, rales right CARDIAC: normal rate, regular rhythm, normal S1 and S2 ABDOMEN: normal bowel sounds, non tender, soft, no organomegaly EXTREMITIES: non-tender, no calf tenderness, No edema Laboratory Tests Test 05/15/20 13:23 05/16/20 06:02 05/16/20 09:45 05/16/20 12:30 Arterial Blood pH 7.356 (7.350-7.450) Arterial Blood Partial Pressure CO2 47.6 mmHg (35.0-45.0) H Arterial Blood Partial Pressure O2 81.3 mmHg (75.0-100.0) Arterial Blood HCO3 26.0 mmol/L (22.0-26.0) Arterial Blood Oxygen Saturation 96.0 % (95-100) Arterial Blood Base Excess 0 (-2-2) Jesus Test Positive White Blood Count 13.5 K/UL (4.8-10.8) H Red Blood Count 4.66 M/UL (4.70-6.10) L Hemoglobin 14.3 G/DL (14.2-18.0) Hematocrit 42.0 % (42.0-52.0) Mean Corpuscular Volume 90 FL (80-99) Mean Corpuscular Hemoglobin 30.6 PG (27.0-31.0) Mean Corpuscular Hemoglobin Concent 34.0 G/DL (32.0-36.0) Red Cell Distribution Width 13.2 % (11.6-14.8) Platelet Count 216 K/UL (150-450) Mean Platelet Volume 5.2 FL (6.5-10.1) L Neutrophils (%) (Auto) 81.8 % (45.0-75.0) H Lymphocytes (%) (Auto) 8.5 % (20.0-45.0) L Monocytes (%) (Auto) 8.1 % (1.0-10.0) Eosinophils (%) (Auto) 0.0 % (0.0-3.0) Basophils (%) (Auto) 1.6 % (0.0-2.0) Prothrombin Time 10.7 SEC (9.30-11.50) Prothromb Time International Ratio 1.0 (0.9-1.1) Activated Partial Thromboplast Time 27 SEC (23-33) Sodium Level 139 MMOL/L (136-145) Potassium Level 4.0 MMOL/L (3.5-5.1) Chloride Level 103 MMOL/L (98-107) Carbon Dioxide Level 29 MMOL/L (21-32) Anion Gap 7 mmol/L (5-15) Blood Urea Nitrogen 10 mg/dL (7-18) Creatinine 1.1 MG/DL (0.55-1.30) Estimat Glomerular Filtration Rate > 60 mL/min (>60) Glucose Level 125 MG/DL (74-106) H Lactic Acid Level 2.90 mmol/L (0.4-2.0) H 3.00 mmol/L (0.66-2.22) H Uric Acid 3.5 MG/DL (2.6-7.2) Calcium Level 8.5 MG/DL (8.5-10.1) Phosphorus Level 3.6 MG/DL (2.5-4.9) Magnesium Level 2.1 MG/DL (1.8-2.4) Total Bilirubin 0.1 MG/DL (0.2-1.0) L Gamma Glutamyl Transpeptidase 19 U/L (5-85) Aspartate Amino Transf (AST/SGOT) 21 U/L (15-37) Alanine Aminotransferase (ALT/SGPT) 26 U/L (12-78) Alkaline Phosphatase 85 U/L (46-116) Troponin I 0.032 ng/mL (0.000-0.056) Pro-B-Type Natriuretic Peptide 1091 pg/mL (0-125) H Total Protein 5.7 G/DL (6.4-8.2) L Albumin 3.1 G/DL (3.4-5.0) L Globulin 2.6 g/dL Albumin/Globulin Ratio 1.2 (1.0-2.7) POC Whole Blood Glucose 154 MG/DL (74-106) H Microbiology Date/Time Source Procedure Growth Status 05/14/20 06:30 Sputum Gram Stain - Final Complete 05/14/20 06:30 Sputum Sputum Culture - Final NORMAL UPPER RESPIRATORY ENA AT 48 ... 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 Serial lactic acid levels Nicotine patch O2 suppl Tej Teran MD May 16, 2020 12:44
--- NOTE | 2020-05-16 13:19 | Nephrology Progress Note ---
Assessment/Plan Problem List: (1) Scimitar syndrome (2) Asthma exacerbation (3) Lactic acidosis Plan Elevated lactic acid level: Discussed with Drs. Teran and Savana Based on clinical data and patient's clinical situation I could only find albuterol being responsible for high lactic acid level. It was agreed upon discontinuation of albuterol inhaler and monitor lactic acid level. Per orders Subjective ROS Limited/Unobtainable: No Objective Objective Last 24 Hour Vital Signs Date Time Temp Pulse Resp B/P (MAP) Pulse Ox O2 Delivery O2 Flow Rate FiO2 05/16/20 12:00 97.1 82 22 158/119 (132) 98 05/16/20 12:00 91 05/16/20 08:58 Nasal Cannula 2.0 05/16/20 08:00 97.1 80 24 149/104 (119) 96 05/16/20 08:00 83 05/16/20 07:43 98 Nasal Cannula 2.0 28 05/16/20 07:43 76 20 98 Nasal Cannula 2.0 28 73 20 97 05/16/20 04:00 98.1 74 24 136/79 (98) 96 05/16/20 04:00 98 05/16/20 02:03 82 20 100 Nasal Cannula 2.0 28 81 20 98 05/16/20 00:00 85 05/16/20 00:00 98.1 86 24 122/74 (90) 99 05/15/20 22:47 89 20 100 Nasal Cannula 2.0 28 85 20 97 05/15/20 22:16 98.1 05/15/20 21:00 Nasal Cannula 2.0 05/15/20 20:00 92 05/15/20 20:00 98.1 77 22 153/99 (117) 96 05/15/20 19:47 86 20 100 Nasal Cannula 2.0 28 88 20 98 05/15/20 19:46 98 Nasal Cannula 2.0 28 05/15/20 16:00 98.1 91 22 135/85 (102) 96 05/15/20 16:00 99 05/15/20 15:54 75 20 100 Nasal Cannula 2.0 28 71 20 97 Intake and Output 05/15/20 05/16/20 19:00 07:00 Intake Total 480 ml Balance 480 ml Intake Oral 480 ml # Voids 5 5 Current Medications Medications (Trade) Dose Ordered Sig/Niki Route PRN Reason Start Time Stop Time Status Last Admin Dose Admin Acetaminophen (Tylenol) 650 mg Q4H PRN ORAL Mild Pain (Pain Scale 1-3) 05/13/20 22:45 06/12/20 22:44 05/15/20 21:46 Azithromycin 500 mg/Dextrose 275 ml @ 275 mls/hr Q24HRS IV 05/14/20 01:00 05/20/20 01:59 05/16/20 00:17 Ceftriaxone Sodium 1 gm/ Dextrose 55 ml @ 110 mls/hr Q24H IVPB 05/13/20 23:00 05/20/20 22:59 05/15/20 22:50 Docusate Sodium (Colace) 100 mg TWICE A DAY ORAL 05/14/20 09:00 06/13/20 08:59 05/14/20 09:15 Famotidine (Pepcid) 20 mg DAILY ORAL 05/14/20 09:00 08/12/20 08:59 05/16/20 08:48 Guaifenesin/ Dextromethorphan (Robitussin DM Syrup) 10 ml Q4H PRN ORAL For Cough 05/13/20 22:45 08/11/20 22:44 Heparin Sodium (Porcine) (Heparin 5000 units/ml) 5,000 units EVERY 12 HOURS SUBQ 05/14/20 09:00 06/28/20 08:59 05/16/20 08:49 Magnesium Hydroxide (Mom) 30 ml DAILYPRN PRN ORAL Constipation 05/13/20 22:45 06/12/20 22:44 Nicotine (Nicoderm) 1 patch Q24H TDERMAL 05/13/20 22:45 08/11/20 22:44 05/15/20 21:45 Ondansetron HCl (Zofran) 4 mg Q6H PRN IVP Nausea & Vomiting 05/13/20 22:45 06/12/20 22:44 05/15/20 00:22 Prednisone (predniSONE) 10 mg DAILY ORAL 05/16/20 12:00 06/15/20 11:59 05/16/20 12:26 Sodium Chloride 1,000 ml @ 60 mls/hr [id number] IV 05/13/20 22:45 06/12/20 22:44 05/16/20 06:52 Laboratory Tests 05/15/20 13:23: Arterial Blood pH 7.356, Arterial Blood Partial Pressure CO2 47.6H, Arterial Blood Partial Pressure O2 81.3, Arterial Blood HCO3 26.0, Arterial Blood Oxygen Saturation 96.0, Arterial Blood Base Excess 0, Jesus Test Positive 05/16/20 06:02: White Blood Count 13.5H, Red Blood Count 4.66L, Hemoglobin 14.3, Hematocrit 4 2.0, Mean Corpuscular Volume 90, Mean Corpuscular Hemoglobin 30.6, Mean Corpuscular Hemoglobin Concent 34.0, Red Cell Distribution Width 13.2, Platelet Count 216, Mean Platelet Volume 5.2L, Neutrophils (%) (Auto) 81.8H, Lymphocytes (%) (Auto) 8.5L, Monocytes (%) (Auto) 8.1, Eosinophils (%) (Auto) 0.0, Basophils (%) (Auto) 1.6, Prothrombin Time 10.7, Prothromb Time International Ratio 1.0, Activated Partial Thromboplast Time 27, Sodium Level 139, Potassium Level 4.0, Chloride Level 103, Carbon Dioxide Level 29, Anion Gap 7, Blood Urea Nitrogen 10, Creatinine 1.1, Estimat Glomerular Filtration Rate > 60, Glucose Level 125H, Lactic Acid Level 2.90H, Uric Acid 3.5, Calcium Level 8.5, Phosphorus Level 3.6, Magnesium Level 2.1, Total Bilirubin 0.1L, Gamma Glutamyl Transpeptidase 19, Aspartate Amino Transf (AST/SGOT) 21, Alanine Aminotransferase (ALT/SGPT) 26, Alkaline Phosphatase 85, Troponin I 0.032, Pro-B-Type Natriuretic Peptide 1091H, Total Protein 5.7L, Albumin 3.1L, Globulin 2.6, Albumin/Globulin Ratio 1.2 05/16/20 09:45: Lactic Acid Level 3.00H 05/16/20 12:30: POC Whole Blood Glucose 154H Height (Feet): 5 Height (Inches): 6.00 Weight (Pounds): 160 General Appearance: no apparent distress Objective No change Angel Westfall MD May 16, 2020 13:19
[2020-05-16 16:00] VITALS: BP 151/87
--- NOTE | 2020-05-16 17:00 | Cardiology Report ---
APPROVED REPORT EKG Measurement Heart [id number] <Conclusion> Normal sinus rhythm Rightward axis Early repolarization Borderline ECG
[2020-05-16 20:00] VITALS: BP 139/106
[2020-05-16] MEDS: Ipratropium 0.02% Inh Soln 2.5ml UD HHN PRN (21:38)
[2020-05-16] MEDS: cefTRIAXone 1 GM in D5W 55 ML IVPB SCH (23:04)
[2020-05-17] VITALS: BP 125/82
[2020-05-17] MEDS: Azithromycin 500 MG in D5W 275 ML IV SCH (01:16)
[2020-05-17 04:00] VITALS: BP 135/95
[2020-05-17] MEDS: Ipratropium 0.02% Inh Soln 2.5ml UD HHN PRN ×2 (05:06→10:55)
[2020-05-17 06:57] LABS: ALANINE AMINOTRANSFERASE 23 U/L (12-78); ALBUMIN 2.9 G/DL (3.4-5.0); ALBUMIN/GLOBULIN RATIO 1.2 (1.0-2.7); ALKALINE PHOSPHATASE 80 U/L (46-116); ANION GAP 6 mmol/L (5-15); ASPARTATE AMINO TRANSFERASE 17 U/L (15-37); BILIRUBIN,TOTAL 0.2 MG/DL (0.2-1.0); BLOOD UREA NITROGEN 14 mg/dL (7-18); CALCIUM 8.1 MG/DL (8.5-10.1); CARBON DIOXIDE 32 MMOL/L (21-32); CHLORIDE 102 MMOL/L (98-107); PHOSPHORUS 3.7 MG/DL (2.5-4.9); POTASSIUM 3.4 MMOL/L (3.5-5.1); SODIUM 140 MMOL/L (136-145)
[2020-05-17 08:00] VITALS: BP 143/98
[2020-05-17] MEDS: Docusate 100mg cap ORAL SCH ×3 (09:00→17:31)
[2020-05-17] MEDS: Heparin 5000 units/ml inj SUBQ SCH ×2 (09:08→21:13)
--- NOTE | 2020-05-17 11:55 | Nephrology Progress Note ---
Assessment/Plan Problem List: (1) Scimitar syndrome (2) Asthma exacerbation (3) Lactic acidosis Plan May 17: IV fluid to be discontinued. Potassium supplement given. Lactic acid lower now that the albuterol is discontinued. Continue per pulmonary. Elevated lactic acid level: Discussed with Drs. Teran and Savana Based on clinical data and patient's clinical situation I could only find albuterol being responsible for high lactic acid level. It was agreed upon discontinuation of albuterol inhaler and monitor lactic acid level. Per orders Subjective ROS Limited/Unobtainable: No Constitutional: Reports: malaise Objective Objective Last 24 Hour Vital Signs Date Time Temp Pulse Resp B/P (MAP) Pulse Ox O2 Delivery O2 Flow Rate FiO2 05/17/20 11:05 82 18 100 Nasal Cannula 1.0 24 76 18 99 05/17/20 08:00 97.7 101 20 143/98 (113) 96 05/17/20 07:25 99 Nasal Cannula 1.0 24 05/17/20 06:00 Nasal Cannula 2.0 05/17/20 05:09 78 18 100 Nasal Cannula 1.0 24 72 18 97 05/17/20 04:00 77 05/17/20 04:00 98.4 73 17 135/95 (108) 96 05/17/20 00:00 98.1 64 20 125/82 (96) 98 05/17/20 00:00 65 05/16/20 21:40 98 Nasal Cannula 1.0 24 05/16/20 21:38 92 18 100 Nasal Cannula 1.0 24 89 18 98 05/16/20 21:00 Nasal Cannula 2.0 05/16/20 20:00 99.1 72 28 139/106 (117) 98 05/16/20 20:00 66 05/16/20 16:00 97.7 98 22 151/87 (108) 99 05/16/20 16:00 73 05/16/20 12:00 97.1 82 22 158/119 (132) 98 05/16/20 12:00 91 Intake and Output 05/16/20 05/17/20 19:00 07:00 Intake Total 600 ml 725 ml Balance 600 ml 725 ml Intake Oral 600 ml 725 ml # Voids 5 6 # Bowel Movements 1 Current Medications Medications (Trade) Dose Ordered Sig/Niki Route PRN Reason Start Time Stop Time Status Last Admin Dose Admin Acetaminophen (Tylenol) 650 mg Q4H PRN ORAL Mild Pain (Pain Scale 1-3) 05/13/20 22:45 06/12/20 22:44 05/15/20 21:46 Azithromycin 500 mg/Dextrose 275 ml @ 275 mls/hr Q24HRS IV 05/14/20 01:00 05/20/20 01:59 05/17/20 01:16 Ceftriaxone Sodium 1 gm/ Dextrose 55 ml @ 110 mls/hr Q24H IVPB 05/13/20 23:00 05/20/20 22:59 05/16/20 23:04 Docusate Sodium (Colace) 100 mg TWICE A DAY ORAL 05/14/20 09:00 06/13/20 08:59 05/14/20 09:15 Famotidine (Pepcid) 20 mg BID ORAL 05/16/20 18:00 08/12/20 08:59 05/17/20 09:04 Guaifenesin/ Dextromethorphan (Robitussin DM Syrup) 10 ml Q4H PRN ORAL For Cough 05/13/20 22:45 08/11/20 22:44 Heparin Sodium (Porcine) (Heparin 5000 units/ml) 5,000 units EVERY 12 HOURS SUBQ 05/14/20 09:00 06/28/20 08:59 05/17/20 09:08 Ipratropium [place] (Atrovent) 500 mcg Q6H PRN HHN Shortness of Breath 05/16/20 21:15 05/21/20 21:14 05/17/20 10:55 Magnesium Hydroxide (Mom) 30 ml DAILYPRN PRN ORAL Constipation 05/13/20 22:45 06/12/20 22:44 Nicotine (Nicoderm) 1 patch Q24H TDERMAL 05/13/20 22:45 08/11/20 22:44 05/16/20 23:03 Ondansetron HCl (Zofran) 4 mg Q6H PRN IVP Nausea & Vomiting 05/13/20 22:45 06/12/20 22:44 05/15/20 00:22 Prednisone (predniSONE) 10 mg DAILY ORAL 05/16/20 12:00 06/15/20 11:59 05/17/20 09:04 Sodium Chloride 1,000 ml @ 60 mls/hr [id number] IV 05/13/20 22:45 06/12/20 22:44 05/17/20 11:15 Laboratory Tests 05/16/20 12:30: POC Whole Blood Glucose 154H 05/17/20 05:20: Sodium Level 140, Potassium Level 3.4L, Chloride Level 102, Carbon Dioxide Level 32, Anion Gap 6, Blood Urea Nitrogen 14, Creatinine 1.0, Estimat Glomerular Filtration Rate > 60, Glucose Level 96, Lactic Acid Level 1.80, Calcium Level 8.1L, Phosphorus Level 3.7, Magnesium Level 1.9, Total Bilirubin 0.2, Aspartate Amino Transf (AST/SGOT) 17, Alanine Aminotransferase (ALT/SGPT) 23, Alkaline Phosphatase 80, C-Reactive Protein, Quantitative < 0.4, Total Protein 5.4L, Albumin 2.9L, Globulin 2.5, Albumin/Globulin Ratio 1.2 Height (Feet): 5 Height (Inches): 6.00 Weight (Pounds): 160 General Appearance: no apparent distress Cardiovascular: other - Variable rate Respiratory/Chest: decreased breath sounds Abdomen: soft Objective No change Angel Westfall MD May 17, 2020 11:55
[2020-05-17 12:00] VITALS: BP 146/108
[2020-05-17] MEDS ORDERED: NS 275ml ONE (15:13)
[2020-05-17] MEDS ORDERED: Tubing IV Secondary IV ONE (15:13)
[2020-05-17 16:00] VITALS: BP 151/100
[2020-05-17] MEDS: Ipratropium 0.02% Inh Soln 2.5ml UD HHN SCH ×2 (19:35→23:14)
[2020-05-17 20:00] VITALS: BP 127/98
--- NOTE | 2020-05-17 20:10 | Pulmonology Progress Note ---
Subjective ROS Limited/Unobtainable: No Interval Events: None new reported Constitutional: Reports: no symptoms HEENT: Repors: no symptoms Respiratory: Reports: no symptoms Cardiovascular: Reports: no symptoms Gastrointestinal/Abdominal: Reports: no symptoms Allergies: Coded Allergies: No Known Allergies (Unverified , 03/24/18) Objective Last 24 Hour Vital Signs Date Time Temp Pulse Resp B/P (MAP) Pulse Ox O2 Delivery O2 Flow Rate FiO2 05/17/20 19:38 99 Nasal Cannula 1.0 24 05/17/20 19:35 96 18 100 Nasal Cannula 1.0 24 92 18 99 05/17/20 16:00 97.2 87 18 151/100 (117) 96 05/17/20 16:00 81 05/17/20 12:00 101 05/17/20 12:00 97.9 88 20 146/108 (121) 98 05/17/20 11:57 101 05/17/20 11:05 82 18 100 Nasal Cannula 1.0 24 76 18 99 05/17/20 08:00 113 05/17/20 08:00 97.7 101 20 143/98 (113) 96 05/17/20 07:25 99 Nasal Cannula 1.0 24 05/17/20 06:00 Nasal Cannula 2.0 05/17/20 05:09 78 18 100 Nasal Cannula 1.0 24 72 18 97 05/17/20 04:00 77 05/17/20 04:00 98.4 73 17 135/95 (108) 96 05/17/20 00:00 98.1 64 20 125/82 (96) 98 05/17/20 00:00 65 05/16/20 21:40 98 Nasal Cannula 1.0 24 05/16/20 21:38 92 18 100 Nasal Cannula 1.0 24 89 18 98 05/16/20 21:00 Nasal Cannula 2.0 Intake and Output 05/16/20 05/17/20 19:00 07:00 Intake Total 600 ml 785 ml Balance 600 ml 785 ml Intake Oral 600 ml 725 ml IV Total 60 ml # Voids 5 6 # Bowel Movements 1 General Appearance: no acute distress HEENT: normocephalic Respiratory: chest wall non-tender, decreased breath sounds Cardiovascular: normal peripheral pulses, normal rate Abdomen: normal bowel sounds, soft, non tender Laboratory Tests 05/17/20 05:20: Sodium Level 140, Potassium Level 3.4L, Chloride Level 102, Carbon Dioxide Level 32, Anion Gap 6, Blood Urea Nitrogen 14, Creatinine 1.0, Estimat Glomerular Filtration Rate > 60, Glucose Level 96, Lactic Acid Level 1.80, Calcium Level 8.1L, Phosphorus Level 3.7, Magnesium Level 1.9, Total Bilirubin 0.2, Aspartate Amino Transf (AST/SGOT) 17, Alanine Aminotransferase (ALT/SGPT) 23, Alkaline Phosphatase 80, C-Reactive Protein, Quantitative < 0.4, Total Protein 5.4L, Albumin 2.9L, Globulin 2.5, Albumin/Globulin Ratio 1.2 Current Medications Medications (Trade) Dose Ordered Sig/Niki Route PRN Reason Start Time Stop Time Status Last Admin Dose Admin Acetaminophen (Tylenol) 650 mg Q4H PRN ORAL Mild Pain (Pain Scale 1-3) 05/13/20 22:45 06/12/20 22:44 05/15/20 21:46 Azithromycin 500 mg/Dextrose 275 ml @ 275 mls/hr Q24HRS IV 05/14/20 01:00 05/20/20 01:59 05/17/20 01:16 Ceftriaxone Sodium 1 gm/ Dextrose 55 ml @ 110 mls/hr Q24H IVPB 05/13/20 23:00 05/20/20 22:59 05/16/20 23:04 Docusate Sodium (Colace) 100 mg TWICE A DAY ORAL 05/14/20 09:00 06/13/20 08:59 05/14/20 09:15 Famotidine (Pepcid) 20 mg BID ORAL 05/16/20 18:00 08/12/20 08:59 05/17/20 17:31 Guaifenesin/ Dextromethorphan (Robitussin DM Syrup) 10 ml Q4H PRN ORAL For Cough 05/13/20 22:45 08/11/20 22:44 Heparin Sodium (Porcine) (Heparin 5000 units/ml) 5,000 units EVERY 12 HOURS SUBQ 05/14/20 09:00 06/28/20 08:59 05/17/20 09:08 Ipratropium [place] (Atrovent) 500 mcg Q4HRT HHN 05/17/20 19:30 05/22/20 19:29 05/17/20 19:35 Magnesium Hydroxide (Mom) 30 ml DAILYPRN PRN ORAL Constipation 05/13/20 22:45 06/12/20 22:44 Nicotine (Nicoderm) 1 patch Q24H TDERMAL 05/13/20 22:45 08/11/20 22:44 05/16/20 23:03 Ondansetron HCl (Zofran) 4 mg Q6H PRN IVP Nausea & Vomiting 05/13/20 22:45 06/12/20 22:44 05/15/20 00:22 Prednisone (predniSONE) 10 mg DAILY ORAL 05/16/20 12:00 06/15/20 11:59 05/17/20 09:04 Assessment/Plan Assessment/Plan IMPRESSION: 1. Right pleural effusion. 2. Right lung pneumonia. 3. Scimitar syndrome. DISCUSSION: Agree with current management and care. Broad spectrum antibiotics. Advised tobacco cessation. Steroids. DVT and GI prophylaxes. I will follow. Bud Sawant M.D. Bud Sawant MD May 17, 2020 20:10
[2020-05-17] MEDS: cefTRIAXone 1 GM in D5W 55 ML IVPB SCH (22:59)
--- NOTE | 2020-05-17 23:23 | Cardiology Progress Note ---
Subjective DATE OF SERVICE: May 17, 2020 Feeling better with less cough and SOB, but continues to require inhaled bronchodilator treatments every [address] scan reveals right peripneumonic effusion - but not enough to tap per pulmonary. 2D Echo with normal LVEF and no pulmonary hypertension. Objective Last 24 Hour Vital Signs Date Time Temp Pulse Resp B/P (MAP) Pulse Ox O2 Delivery O2 Flow Rate FiO2 05/17/20 23:15 88 18 100 Nasal Cannula 1.0 24 89 18 99 05/17/20 21:00 Nasal Cannula 1.0 05/17/20 20:00 95 05/17/20 20:00 98.1 88 23 127/98 (108) 99 05/17/20 19:38 99 Nasal Cannula 1.0 24 05/17/20 19:35 96 18 100 Nasal Cannula 1.0 24 92 18 99 05/17/20 16:00 97.2 87 18 151/100 (117) 96 05/17/20 16:00 81 05/17/20 12:00 101 05/17/20 12:00 97.9 88 20 146/108 (121) 98 05/17/20 11:57 101 05/17/20 11:05 82 18 100 Nasal Cannula 1.0 24 76 18 99 05/17/20 08:00 113 05/17/20 08:00 97.7 101 20 143/98 (113) 96 05/17/20 07:25 99 Nasal Cannula 1.0 24 05/17/20 06:00 Nasal Cannula 2.0 05/17/20 05:09 78 18 100 Nasal Cannula 1.0 24 72 18 97 05/17/20 04:00 77 05/17/20 04:00 98.4 73 17 135/95 (108) 96 05/17/20 00:00 98.1 64 20 125/82 (96) 98 05/17/20 00:00 65 ROS: unchanged from my evaluation of 05/13/20 HEENT: normal ENT inspection RHYTHM: NSR LUNGS: diminished breath sounds - right sided, right-sided rhonchi, rales right CARDIAC: normal rate, regular rhythm, normal S1 and S2 ABDOMEN: normal bowel sounds, non tender, soft, no organomegaly EXTREMITIES: non-tender, no calf tenderness, No edema Laboratory Tests Test 05/17/20 05:20 Sodium Level 140 MMOL/L (136-145) Potassium Level 3.4 MMOL/L (3.5-5.1) L Chloride Level 102 MMOL/L (98-107) Carbon Dioxide Level 32 MMOL/L (21-32) Anion Gap 6 mmol/L (5-15) Blood Urea Nitrogen 14 mg/dL (7-18) Creatinine 1.0 MG/DL (0.55-1.30) Estimat Glomerular Filtration Rate > 60 mL/min (>60) Glucose Level 96 MG/DL (74-106) Lactic Acid Level 1.80 mmol/L (0.4-2.0) Calcium Level 8.1 MG/DL (8.5-10.1) L Phosphorus Level 3.7 MG/DL (2.5-4.9) Magnesium Level 1.9 MG/DL (1.8-2.4) Total Bilirubin 0.2 MG/DL (0.2-1.0) Aspartate Amino Transf (AST/SGOT) 17 U/L (15-37) Alanine Aminotransferase (ALT/SGPT) 23 U/L (12-78) Alkaline Phosphatase 80 U/L (46-116) C-Reactive Protein, Quantitative < 0.4 mg/dL (0.00-0.90) Total Protein 5.4 G/DL (6.4-8.2) L Albumin 2.9 G/DL (3.4-5.0) L Globulin 2.5 g/dL Albumin/Globulin Ratio 1.2 (1.0-2.7) Assessment/Plan Assessment/Plan Community acquired PNA Pleural effusion COPD Paroxysmal bronchospasm Parapneumonic effusion Lactic acidosis Nicotine addiction Scimitar syndrome Hypertension Ac diastolic CHF with BNP elevation likely right sided Abx IV steroids with taper Inhaled bronchodilator - albuterol - discont'd due to lactic acidosis IVFluids tapered down. Serial lactic acid levels Nicotine patch O2 suppl AntiHTN tx prn Tej Teran MD May 17, 2020 23:23
[2020-05-18] VITALS: BP 137/104
[2020-05-18] MEDS: Azithromycin 500 MG in D5W 275 ML IV SCH (00:37)
[2020-05-18] MEDS: Ipratropium 0.02% Inh Soln 2.5ml UD HHN SCH ×6 (03:19→23:13)
[2020-05-18 04:00] VITALS: BP 127/89
[2020-05-18 07:48] VITALS: BP 129/80
[2020-05-18 07:55] LABS: EOSINOPHILS % (AUTO) 1.6 % (0.0-3.0); HEMATOCRIT 45.4 % (42.0-52.0); HEMOGLOBIN 15.3 G/DL (14.2-18.0); LYMPHOCYTES % (AUTO) 20.1 % (20.0-45.0); MEAN CORPUSCULAR VOLUME 90 FL (80-99); MONOCYTES % (AUTO) 9.7 % (1.0-10.0); NEUTROPHILS % (AUTO) 67.6 % (45.0-75.0); PLATELET COUNT 220 K/UL (150-450); RED BLOOD COUNT 5.07 M/UL (4.70-6.10); RED CELL DISTRIBUTION WIDTH 13.4 % (11.6-14.8); WHITE BLOOD COUNT 8.2 K/UL (4.8-10.8)
[2020-05-18 08:36] LABS: ALANINE AMINOTRANSFERASE 37 U/L (12-78); ALBUMIN 2.8 G/DL (3.4-5.0); ALBUMIN/GLOBULIN RATIO 0.9 (1.0-2.7); ALKALINE PHOSPHATASE 86 U/L (46-116); ANION GAP 8 mmol/L (5-15); ASPARTATE AMINO TRANSFERASE 20 U/L (15-37); BILIRUBIN,TOTAL 0.3 MG/DL (0.2-1.0); BLOOD UREA NITROGEN 16 mg/dL (7-18); CALCIUM 8.2 MG/DL (8.5-10.1); CARBON DIOXIDE 29 MMOL/L (21-32); CHLORIDE 100 MMOL/L (98-107); PHOSPHORUS 4.1 MG/DL (2.5-4.9); POTASSIUM 3.3 MMOL/L (3.5-5.1); SODIUM 137 MMOL/L (136-145)
--- NOTE | 2020-05-18 08:52 | Cardiology Report ---
APPROVED REPORT EXAM: Two-dimensional and M-mode echocardiogram with Doppler and color Doppler. INDICATION SOB M-Mode DIMENSIONS IVSd0.8 (0.7-1.1cm)Left Atrium (MM)2.4 (1.6-4.0cm) LVDd3.5 (3.5-5.6cm)Aortic Root3.5 (2.0-3.7cm) PWd0.8 (0.7-1.1cm)Aortic Cusp Exc.2.0 (1.5-2.0cm) IVSs1.2 cmEPSS0.7 (>1.0cm) LVDs1.7 (2.5-4.0cm) PWs1.2 cm <Conclusion> Technically difficult study due to poor acoustic windows. Study quality precludes accurate assessment of regional wall motion. Normal left ventricular chamber size, systolic function and wall motion. Left ventricular ejection fraction estimated to be 65 %. No evidence of left ventricular hypertrophy. No evidence of pericardial effusion. All other cardiac chamber sizes are within normal limits. Focal aortic valve sclerosis with adequate cusp excursion. Thickened mitral valve leaflets with normal excursion. Mitral annulus and aortic root calcification. Pulmonic valve not well visualized. Normal tricuspid valve structure. IVC is normal in size with physiological collapse. A color flow and spectral Doppler study was performed and revealed: No aortic regurgitation. Trace mitral regurgitation. Normal left ventricular diastolic function. No tricuspid regurgitation.
[2020-05-18] MEDS: Docusate 100mg cap ORAL SCH ×2 (09:00→17:18)
[2020-05-18] MEDS: Heparin 5000 units/ml inj SUBQ SCH ×2 (09:24→21:16)
--- NOTE | 2020-05-18 09:42 | Pulmonology Progress Note ---
Subjective ROS Limited/Unobtainable: No Interval Events: None new reported Constitutional: Reports: no symptoms HEENT: Repors: no symptoms Respiratory: Reports: no symptoms Cardiovascular: Reports: no symptoms Gastrointestinal/Abdominal: Reports: no symptoms Allergies: Coded Allergies: No Known Allergies (Unverified , 03/24/18) Objective Last 24 Hour Vital Signs Date Time Temp Pulse Resp B/P (MAP) Pulse Ox O2 Delivery O2 Flow Rate FiO2 05/18/20 09:00 Room Air 05/18/20 08:00 93 05/18/20 07:48 98 Nasal Cannula 1.0 24 05/18/20 07:48 97.9 95 18 129/80 (96) 97 05/18/20 04:00 98.1 73 20 127/89 (102) 99 05/18/20 04:00 73 05/18/20 03:19 78 18 100 Nasal Cannula 1.0 24 74 18 98 05/18/20 00:00 97.7 92 22 137/104 (115) 97 05/18/20 00:00 69 05/17/20 23:15 88 18 100 Nasal Cannula 1.0 24 89 18 99 05/17/20 21:00 Nasal Cannula 1.0 05/17/20 20:00 95 05/17/20 20:00 98.1 88 23 127/98 (108) 99 05/17/20 19:38 99 Nasal Cannula 1.0 24 05/17/20 19:35 96 18 100 Nasal Cannula 1.0 24 92 18 99 05/17/20 16:00 97.2 87 18 151/100 (117) 96 05/17/20 16:00 81 05/17/20 12:00 101 05/17/20 12:00 97.9 88 20 146/108 (121) 98 05/17/20 11:57 101 05/17/20 11:05 82 18 100 Nasal Cannula 1.0 24 76 18 99 Intake and Output 05/17/20 05/18/20 19:00 07:00 Intake Total 1320 ml 500 ml Balance 1320 ml 500 ml Intake Oral 1080 ml 500 ml IV Total 240 ml # Voids 3 4 # Bowel Movements 1 General Appearance: no acute distress HEENT: normocephalic Respiratory: chest wall non-tender, decreased breath sounds Cardiovascular: normal peripheral pulses, normal rate Abdomen: normal bowel sounds, soft, non tender Laboratory Tests 05/18/20 06:55: White Blood Count 8.2, Red Blood Count 5.07, Hemoglobin 15.3, Hematocrit 45.4, Mean Corpuscular Volume 90, Mean Corpuscular Hemoglobin 30.2, Mean Corpuscular Hemoglobin Concent 33.7, Red Cell Distribution Width 13.4, Platelet Count 220, Mean Platelet Volume 5.5L, Neutrophils (%) (Auto) 67.6, Lymphocytes (%) (Auto) 20.1, Monocytes (%) (Auto) 9.7, Eosinophils (%) (Auto) 1.6, Basophils (%) (Auto) 1.0, Sodium Level 137, Potassium Level 3.3L, Chloride Level 100, Carbon Dioxide Level 29, Anion Gap 8, Blood Urea Nitrogen 16, Creatinine 1.0, Estimat Glomerular Filtration Rate > 60, Glucose Level 138H, Lactic Acid Level 2.30H, Uric Acid 5.0, Calcium Level 8.2L, Phosphorus Level 4.1, Magnesium Level 2.0, Total Bilirubin 0.3, Aspartate Amino Transf (AST/SGOT) 20, Alanine Aminotransferase (ALT/SGPT) 37, Alkaline Phosphatase 86, C-Reactive Protein, Quantitative < 0.4, Total Protein 6.0L, Albumin 2.8L, Globulin 3.2, Albumin/Globulin Ratio 0.9L Current Medications Medications (Trade) Dose Ordered Sig/Niki Route PRN Reason Start Time Stop Time Status Last Admin Dose Admin Acetaminophen (Tylenol) 650 mg Q4H PRN ORAL Mild Pain (Pain Scale 1-3) 05/13/20 22:45 06/12/20 22:44 05/15/20 21:46 Azithromycin 500 mg/Dextrose 275 ml @ 275 mls/hr Q24HRS IV 05/14/20 01:00 05/20/20 01:59 05/18/20 00:37 Ceftriaxone Sodium 1 gm/ Dextrose 55 ml @ 110 mls/hr Q24H IVPB 05/13/20 23:00 05/20/20 22:59 05/17/20 22:59 Docusate Sodium (Colace) 100 mg TWICE A DAY ORAL 05/14/20 09:00 06/13/20 08:59 05/14/20 09:15 Famotidine (Pepcid) 20 mg BID ORAL 05/16/20 18:00 08/12/20 08:59 05/18/20 09:19 Guaifenesin/ Dextromethorphan (Robitussin DM Syrup) 10 ml Q4H PRN ORAL For Cough 05/13/20 22:45 08/11/20 22:44 Heparin Sodium (Porcine) (Heparin 5000 units/ml) 5,000 units EVERY 12 HOURS SUBQ 05/14/20 09:00 06/28/20 08:59 05/18/20 09:24 Ipratropium [place] (Atrovent) 500 mcg Q4HRT HHN 05/17/20 19:30 05/22/20 19:29 05/18/20 08:58 Magnesium Hydroxide (Mom) 30 ml DAILYPRN PRN ORAL Constipation 05/13/20 22:45 06/12/20 22:44 Nicotine (Nicoderm) 1 patch Q24H TDERMAL 05/13/20 22:45 08/11/20 22:44 05/17/20 22:59 Ondansetron HCl (Zofran) 4 mg Q6H PRN IVP Nausea & Vomiting 05/13/20 22:45 06/12/20 22:44 05/15/20 00:22 Prednisone (predniSONE) 10 mg DAILY ORAL 05/16/20 12:00 06/15/20 11:59 05/18/20 09:19 Assessment/Plan Assessment/Plan IMPRESSION: 1. Right pleural effusion. 2. Right lung pneumonia. 3. Scimitar syndrome. DISCUSSION: Agree with current management and care. Broad spectrum antibiotics. Advised tobacco cessation. Steroids, PO now. DVT and GI prophylaxes. I will follow. Arron Krishnan Omar Syed MD May 18, 2020 09:42
[2020-05-18 11:32] VITALS: BP 123/94
--- NOTE | 2020-05-18 13:12 | Nephrology Progress Note ---
Assessment/Plan Problem List: (1) Scimitar syndrome (2) Asthma exacerbation (3) Lactic acidosis Plan May 18: Potassium supplement given. Continue to monitor lactic acid off albuterol inhaler. May 17: IV fluid to be discontinued. Potassium supplement given. Lactic acid lower now that the albuterol is discontinued. Continue per pulmonary. Elevated lactic acid level: Discussed with Drs. Teran and Savana Based on clinical data and patient's clinical situation I could only find albuterol being responsible for high lactic acid level. It was agreed upon discontinuation of albuterol inhaler and monitor lactic acid level. Per orders Subjective ROS Limited/Unobtainable: No Constitutional: Reports: malaise Objective Objective Last 24 Hour Vital Signs Date Time Temp Pulse Resp B/P (MAP) Pulse Ox O2 Delivery O2 Flow Rate FiO2 05/18/20 11:32 98.0 104 20 123/94 (104) 97 05/18/20 09:00 Room Air 05/18/20 08:00 93 05/18/20 07:48 98 Nasal Cannula 1.0 24 05/18/20 07:48 97.9 95 18 129/80 (96) 97 05/18/20 07:12 99 18 100 Nasal Cannula 1.0 24 97 18 97 05/18/20 04:00 98.1 73 20 127/89 (102) 99 05/18/20 04:00 73 05/18/20 03:19 78 18 100 Nasal Cannula 1.0 24 74 18 98 05/18/20 00:00 97.7 92 22 137/104 (115) 97 05/18/20 00:00 69 05/17/20 23:15 88 18 100 Nasal Cannula 1.0 24 89 18 99 05/17/20 21:00 Nasal Cannula 1.0 05/17/20 20:00 95 05/17/20 20:00 98.1 88 23 127/98 (108) 99 05/17/20 19:38 99 Nasal Cannula 1.0 24 05/17/20 19:35 96 18 100 Nasal Cannula 1.0 24 92 18 99 05/17/20 16:00 97.2 87 18 151/100 (117) 96 05/17/20 16:00 81 Intake and Output 05/17/20 05/18/20 19:00 07:00 Intake Total 1320 ml 500 ml Balance 1320 ml 500 ml Intake Oral 1080 ml 500 ml IV Total 240 ml # Voids 3 4 # Bowel Movements 1 Laboratory Tests 05/18/20 06:55: White Blood Count 8.2, Red Blood Count 5.07, Hemoglobin 15.3, Hematocrit 45.4, Mean Corpuscular Volume 90, Mean Corpuscular Hemoglobin 30.2, Mean Corpuscular Hemoglobin Concent 33.7, Red Cell Distribution Width 13.4, Platelet Count 220, Mean Platelet Volume 5.5L, Neutrophils (%) (Auto) 67.6, Lymphocytes (%) (Auto) 20.1, Monocytes (%) (Auto) 9.7, Eosinophils (%) (Auto) 1.6, Basophils (%) (Auto) 1.0, Sodium Level 137, Potassium Level 3.3L, Chloride Level 100, Carbon Dioxide Level 29, Anion Gap 8, Blood Urea Nitrogen 16, Creatinine 1.0, Estimat Glomerular Filtration Rate > 60, Glucose Level 138H, Lactic Acid Level 2.30H, Uric Acid 5.0, Calcium Level 8.2L, Phosphorus Level 4.1, Magnesium Level 2.0, Total Bilirubin 0.3, Aspartate Amino Transf (AST/SGOT) 20, Alanine Aminotransferase (ALT/SGPT) 37, Alkaline Phosphatase 86, C-Reactive Protein, Quantitative < 0.4, Total Protein 6.0L, Albumin 2.8L, Globulin 3.2, Albumin/Globulin Ratio 0.9L Height (Feet): 5 Height (Inches): 6.00 Weight (Pounds): 160 General Appearance: no apparent distress Objective No change Angel Westfall MD May 18, 2020 13:12
[2020-05-18 16:00] VITALS: BP 138/88
--- NOTE | 2020-05-18 17:17 | Cardiology Progress Note ---
Subjective DATE OF SERVICE: May 18, 2020 Feeling better with less cough and SOB, but continues to require inhaled bronchodilator treatments about every [address] scan reveals right peripneumonic effusion - but not enough to tap per pulmonary. Still with recurring lactic acid elevations. 2D Echo with normal LVEF and no pulmonary hypertension. Objective Last 24 Hour Vital Signs Date Time Temp Pulse Resp B/P (MAP) Pulse Ox O2 Delivery O2 Flow Rate FiO2 05/18/20 16:00 98.1 96 22 138/88 (105) 95 05/18/20 15:26 105 18 100 Room Air 21 101 18 97 05/18/20 11:32 98.0 104 20 123/94 (104) 97 05/18/20 09:00 Room Air 05/18/20 08:00 93 05/18/20 07:48 98 Nasal Cannula 1.0 24 05/18/20 07:48 97.9 95 18 129/80 (96) 97 05/18/20 07:12 99 18 100 Nasal Cannula 1.0 24 97 18 97 05/18/20 04:00 98.1 73 20 127/89 (102) 99 05/18/20 04:00 73 05/18/20 03:19 78 18 100 Nasal Cannula 1.0 24 74 18 98 05/18/20 00:00 97.7 92 22 137/104 (115) 97 05/18/20 00:00 69 05/17/20 23:15 88 18 100 Nasal Cannula 1.0 24 89 18 99 05/17/20 21:00 Nasal Cannula 1.0 05/17/20 20:00 95 05/17/20 20:00 98.1 88 23 127/98 (108) 99 05/17/20 19:38 99 Nasal Cannula 1.0 24 05/17/20 19:35 96 18 100 Nasal Cannula 1.0 24 92 18 99 ROS: unchanged from my evaluation of 05/13/20 HEENT: normal ENT inspection RHYTHM: NSR LUNGS: diminished breath sounds - right sided, right-sided rhonchi, rales right CARDIAC: normal rate, regular rhythm, normal S1 and S2 ABDOMEN: normal bowel sounds, non tender, soft, no organomegaly EXTREMITIES: non-tender, no calf tenderness, No edema Laboratory Tests Test 05/18/20 06:55 White Blood Count 8.2 K/UL (4.8-10.8) Red Blood Count 5.07 M/UL (4.70-6.10) Hemoglobin 15.3 G/DL (14.2-18.0) Hematocrit 45.4 % (42.0-52.0) Mean Corpuscular Volume 90 FL (80-99) Mean Corpuscular Hemoglobin 30.2 PG (27.0-31.0) Mean Corpuscular Hemoglobin Concent 33.7 G/DL (32.0-36.0) Red Cell Distribution Width 13.4 % (11.6-14.8) Platelet Count 220 K/UL (150-450) Mean Platelet Volume 5.5 FL (6.5-10.1) L Neutrophils (%) (Auto) 67.6 % (45.0-75.0) Lymphocytes (%) (Auto) 20.1 % (20.0-45.0) Monocytes (%) (Auto) 9.7 % (1.0-10.0) Eosinophils (%) (Auto) 1.6 % (0.0-3.0) Basophils (%) (Auto) 1.0 % (0.0-2.0) Sodium Level 137 MMOL/L (136-145) Potassium Level 3.3 MMOL/L (3.5-5.1) L Chloride Level 100 MMOL/L (98-107) Carbon Dioxide Level 29 MMOL/L (21-32) Anion Gap 8 mmol/L (5-15) Blood Urea Nitrogen 16 mg/dL (7-18) Creatinine 1.0 MG/DL (0.55-1.30) Estimat Glomerular Filtration Rate > 60 mL/min (>60) Glucose Level 138 MG/DL (74-106) H Lactic Acid Level 2.30 mmol/L (0.4-2.0) H Uric Acid 5.0 MG/DL (2.6-7.2) Calcium Level 8.2 MG/DL (8.5-10.1) L Phosphorus Level 4.1 MG/DL (2.5-4.9) Magnesium Level 2.0 MG/DL (1.8-2.4) Total Bilirubin 0.3 MG/DL (0.2-1.0) Aspartate Amino Transf (AST/SGOT) 20 U/L (15-37) Alanine Aminotransferase (ALT/SGPT) 37 U/L (12-78) Alkaline Phosphatase 86 U/L (46-116) C-Reactive Protein, Quantitative < 0.4 mg/dL (0.00-0.90) Total Protein 6.0 G/DL (6.4-8.2) L Albumin 2.8 G/DL (3.4-5.0) L Globulin 3.2 g/dL Albumin/Globulin Ratio 0.9 (1.0-2.7) L Assessment/Plan Assessment/Plan Community acquired PNA Pleural effusion COPD Paroxysmal bronchospasm Parapneumonic effusion Lactic acidosis Nicotine addiction Scimitar syndrome Hypertension Ac diastolic 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 Taper ipratropium therapy. IVFluids tapered off. Serial lactic acid levels Nicotine patch O2 suppl AntiHTN tx prn Tej Teran MD May 18, 2020 17:17
[2020-05-18 20:00] VITALS: BP 130/97
[2020-05-19] VITALS (7 sets, daily range): BP systolic 115–140; BP diastolic 71–103
[2020-05-19] MEDS: cefTRIAXone 1 GM in D5W 55 ML IVPB SCH (00:33)
[2020-05-19] MEDS: Ipratropium 0.02% Inh Soln 2.5ml UD HHN SCH ×4 (01:40→20:39)
[2020-05-19] MEDS: Azithromycin 500 MG in D5W 275 ML IV SCH (01:45)
[2020-05-19 06:53] LABS: ALANINE AMINOTRANSFERASE 47 U/L (12-78); ALBUMIN 2.9 G/DL (3.4-5.0); ALBUMIN/GLOBULIN RATIO 1.1 (1.0-2.7); ALKALINE PHOSPHATASE 97 U/L (46-116); ANION GAP 7 mmol/L (5-15); ASPARTATE AMINO TRANSFERASE 35 U/L (15-37); BILIRUBIN,TOTAL 0.2 MG/DL (0.2-1.0); BLOOD UREA NITROGEN 14 mg/dL (7-18); CALCIUM 8.7 MG/DL (8.5-10.1); CARBON DIOXIDE 31 MMOL/L (21-32); CHLORIDE 100 MMOL/L (98-107); POTASSIUM 4.5 MMOL/L (3.5-5.1); SODIUM 137 MMOL/L (136-145)
[2020-05-19] MEDS: Docusate 100mg cap ORAL SCH ×2 (08:28→17:32)
[2020-05-19] MEDS: Heparin 5000 units/ml inj SUBQ SCH ×2 (08:31→20:56)
--- NOTE | 2020-05-19 09:47 | Pulmonology Progress Note ---
Subjective ROS Limited/Unobtainable: No Interval Events: None new reported Constitutional: Reports: no symptoms HEENT: Repors: no symptoms Respiratory: Reports: no symptoms Cardiovascular: Reports: no symptoms Gastrointestinal/Abdominal: Reports: no symptoms Allergies: Coded Allergies: No Known Allergies (Unverified , 03/24/18) Objective Last 24 Hour Vital Signs Date Time Temp Pulse Resp B/P (MAP) Pulse Ox O2 Delivery O2 Flow Rate FiO2 05/19/20 09:00 Room Air 05/19/20 08:00 98.2 95 18 129/93 (105) 98 05/19/20 04:00 97.6 89 18 124/79 (94) 99 05/19/20 00:00 97.9 80 20 115/74 (88) 97 05/18/20 23:23 95 20 99 Nasal Cannula 1.0 24 05/18/20 23:13 96 20 97 Nasal Cannula 1.0 24 05/18/20 21:00 Room Air 05/18/20 20:00 97.7 101 20 130/97 (108) 96 05/18/20 19:26 103 20 98 Nasal Cannula 1.0 24 05/18/20 19:16 110 22 97 Nasal Cannula 1.0 24 05/18/20 19:16 97 Nasal Cannula 1.0 24 05/18/20 16:00 98.1 96 22 138/88 (105) 95 05/18/20 15:26 105 18 100 Room Air 21 101 18 97 05/18/20 11:32 98.0 104 20 123/94 (104) 97 Intake and Output 05/18/20 05/19/20 19:00 07:00 Intake Total 520 ml 810 ml Balance 520 ml 810 ml Intake Oral 520 ml 480 ml IV Total 330 ml # Voids 5 2 General Appearance: no acute distress HEENT: normocephalic Respiratory: chest wall non-tender, decreased breath sounds Cardiovascular: normal peripheral pulses, normal rate Abdomen: normal bowel sounds, soft, non tender Laboratory Tests 05/19/20 04:00: Arterial Blood pH 7.382, Arterial Blood Partial Pressure CO2 41.6, Arterial Blood Partial Pressure O2 97.3, Arterial Blood HCO3 24.2, Arterial Blood Oxygen Saturation 97.3, Arterial Blood Base Excess -0.9, Jesus Test Positive 05/19/20 05:10: Sodium Level 137, Potassium Level 4.5, Chloride Level 100, Carbon Dioxide Level 31, Anion Gap 7, Blood Urea Nitrogen 14, Creatinine 1.0, Estimat Glomerular Filtration Rate > 60, Glucose Level 109H, Lactic Acid Level 1.40, Calcium Level 8.7, Total Bilirubin 0.2, Aspartate Amino Transf (AST/SGOT) 35, Alanine Aminotransferase (ALT/SGPT) 47, Alkaline Phosphatase 97, Total Protein 5.6L, Albumin 2.9L, Globulin 2.7, Albumin/Globulin Ratio 1.1 Current Medications Medications (Trade) Dose Ordered Sig/Niki Route PRN Reason Start Time Stop Time Status Last Admin Dose Admin Acetaminophen (Tylenol) 650 mg Q4H PRN ORAL Mild Pain (Pain Scale 1-3) 05/13/20 22:45 06/12/20 22:44 05/15/20 21:46 Azithromycin 500 mg/Dextrose 275 ml @ 275 mls/hr Q24HRS IV 05/14/20 01:00 05/20/20 01:59 05/19/20 01:45 Ceftriaxone Sodium 1 gm/ Dextrose 55 ml @ 110 mls/hr Q24H IVPB 05/13/20 23:00 05/20/20 22:59 05/19/20 00:33 Docusate Sodium (Colace) 100 mg TWICE A DAY ORAL 05/14/20 09:00 06/13/20 08:59 05/14/20 09:15 Famotidine (Pepcid) 20 mg BID ORAL 05/16/20 18:00 08/12/20 08:59 05/19/20 08:31 Guaifenesin/ Dextromethorphan (Robitussin DM Syrup) 10 ml Q4H PRN ORAL For Cough 05/13/20 22:45 08/11/20 22:44 Heparin Sodium (Porcine) (Heparin 5000 units/ml) 5,000 units EVERY 12 HOURS SUBQ 05/14/20 09:00 06/28/20 08:59 05/19/20 08:31 Ipratropium [place] (Atrovent) 500 mcg Q6HRT HHN 05/19/20 01:00 05/24/20 00:59 05/19/20 07:35 Magnesium Hydroxide (Mom) 30 ml DAILYPRN PRN ORAL Constipation 05/13/20 22:45 06/12/20 22:44 Nicotine (Nicoderm) 1 patch Q24H TDERMAL 05/13/20 22:45 08/11/20 22:44 05/18/20 23:52 Ondansetron HCl (Zofran) 4 mg Q6H PRN IVP Nausea & Vomiting 05/13/20 22:45 06/12/20 22:44 05/15/20 00:22 Potassium Chloride (K-Dur) 40 meq TWICE A DAY ORAL 05/18/20 12:00 08/16/20 11:59 05/19/20 08:32 Prednisone (predniSONE) 10 mg DAILY ORAL 05/16/20 12:00 06/15/20 11:59 05/19/20 08:32 Assessment/Plan Assessment/Plan IMPRESSION: 1. Right pleural effusion. Small 2. Right lung pneumonia. 3. Scimitar syndrome. DISCUSSION: Agree with current management and care. Broad spectrum antibiotics. Advised tobacco cessation. Steroids, PO now. DVT and GI prophylaxes. I will follow. Lactic acid now normal Arron Krishnan Omar Syed MD May 19, 2020 09:47
--- NOTE | 2020-05-19 10:18 | Nephrology Progress Note ---
Assessment/Plan Problem List: (1) Scimitar syndrome (2) Asthma exacerbation (3) Lactic acidosis Plan May 19: ABG acceptable. Lactic acid within normal limit. Continue per PMD. May 18: Potassium supplement given. Continue to monitor lactic acid off albuterol inhaler. May 17: IV fluid to be discontinued. Potassium supplement given. Lactic acid lower now that the albuterol is discontinued. Continue per pulmonary. Elevated lactic acid level: Discussed with Drs. Teran and Savana Based on clinical data and patient's clinical situation I could only find albuterol being responsible for high lactic acid level. It was agreed upon discontinuation of albuterol inhaler and monitor lactic acid level. Per orders Subjective ROS Limited/Unobtainable: No Objective Objective Last 24 Hour Vital Signs Date Time Temp Pulse Resp B/P (MAP) Pulse Ox O2 Delivery O2 Flow Rate FiO2 05/19/20 09:00 Room Air 05/19/20 08:00 98.2 95 18 129/93 (105) 98 05/19/20 07:45 101 20 99 Nasal Cannula 2.0 28 96 18 98 05/19/20 07:45 99 Nasal Cannula 2.0 28 05/19/20 04:00 97.6 89 18 124/79 (94) 99 05/19/20 00:00 97.9 80 20 115/74 (88) 97 05/18/20 23:23 95 20 99 Nasal Cannula 1.0 24 05/18/20 23:13 96 20 97 Nasal Cannula 1.0 24 05/18/20 21:00 Room Air 05/18/20 20:00 97.7 101 20 130/97 (108) 96 05/18/20 19:26 103 20 98 Nasal Cannula 1.0 24 05/18/20 19:16 110 22 97 Nasal Cannula 1.0 24 05/18/20 19:16 97 Nasal Cannula 1.0 24 05/18/20 16:00 98.1 96 22 138/88 (105) 95 05/18/20 15:26 105 18 100 Room Air 21 101 18 97 05/18/20 11:32 98.0 104 20 123/94 (104) 97 Intake and Output 05/18/20 05/19/20 19:00 07:00 Intake Total 520 ml 810 ml Balance 520 ml 810 ml Intake Oral 520 ml 480 ml IV Total 330 ml # Voids 5 2 Laboratory Tests 05/19/20 04:00: Arterial Blood pH 7.382, Arterial Blood Partial Pressure CO2 41.6, Arterial Blood Partial Pressure O2 97.3, Arterial Blood HCO3 24.2, Arterial Blood Oxygen Saturation 97.3, Arterial Blood Base Excess -0.9, Jesus Test Positive 05/19/20 05:10: Sodium Level 137, Potassium Level 4.5, Chloride Level 100, Carbon Dioxide Level 31, Anion Gap 7, Blood Urea Nitrogen 14, Creatinine 1.0, Estimat Glomerular Filtration Rate > 60, Glucose Level 109H, Lactic Acid Level 1.40, Calcium Level 8.7, Total Bilirubin 0.2, Aspartate Amino Transf (AST/SGOT) 35, Alanine Aminotransferase (ALT/SGPT) 47, Alkaline Phosphatase 97, Total Protein 5.6L, Albumin 2.9L, Globulin 2.7, Albumin/Globulin Ratio 1.1 Height (Feet): 5 Height (Inches): 6.00 Weight (Pounds): 160 General Appearance: no apparent distress Objective No change Angel Westfall MD May 19, 2020 10:18
[2020-05-19] MEDS ORDERED: cefTRIAXone 1 GM in D5W 55 ML IVPB SCH (23:00)
--- NOTE | 2020-05-20 00:04 | Cardiology Progress Note ---
Subjective DATE OF SERVICE: May 19, 2020 Feeling better with less cough and SOB, and requiring less frequent inhaled bronchodilator treatments.. CT scan reveals right peripneumonic effusion - but not enough to tap per pulmonary. Still with recurring lactic acid elevations. 2D Echo with normal LVEF and no pulmonary hypertension. Objective Last 24 Hour Vital Signs Date Time Temp Pulse Resp B/P (MAP) Pulse Ox O2 Delivery O2 Flow Rate FiO2 05/19/20 23:19 97.9 107 18 126/96 (106) 98 05/19/20 21:00 Room Air 05/19/20 20:45 99 Room Air 21 05/19/20 20:42 113 20 99 Nasal Cannula 2.0 28 110 20 97 05/19/20 20:00 97.9 97 19 140/96 (111) 97 05/19/20 16:00 98.6 100 18 140/103 (115) 98 05/19/20 12:34 69 20 98 Nasal Cannula 2.0 28 62 18 95 05/19/20 12:00 98.6 62 18 122/71 (88) 98 05/19/20 09:00 Room Air 05/19/20 08:00 98.2 95 18 129/93 (105) 98 05/19/20 07:45 101 20 99 Nasal Cannula 2.0 28 96 18 98 05/19/20 07:45 99 Nasal Cannula 2.0 28 05/19/20 04:00 97.6 89 18 124/79 (94) 99 ROS: unchanged from my evaluation of 05/13/20 HEENT: normal ENT inspection RHYTHM: NSR LUNGS: diminished breath sounds - right sided, right-sided rhonchi, rales right CARDIAC: normal rate, regular rhythm, normal S1 and S2 ABDOMEN: normal bowel sounds, non tender, soft, no organomegaly EXTREMITIES: non-tender, no calf tenderness, No edema Laboratory Tests Test 05/19/20 04:00 05/19/20 05:10 Arterial Blood pH 7.382 (7.350-7.450) Arterial Blood Partial Pressure CO2 41.6 mmHg (35.0-45.0) Arterial Blood Partial Pressure O2 97.3 mmHg (75.0-100.0) Arterial Blood HCO3 24.2 mmol/L (22.0-26.0) Arterial Blood Oxygen Saturation 97.3 % (95-100) Arterial Blood Base Excess -0.9 (-2-2) Jesus Test Positive Sodium Level 137 MMOL/L (136-145) Potassium Level 4.5 MMOL/L (3.5-5.1) Chloride Level 100 MMOL/L (98-107) Carbon Dioxide Level 31 MMOL/L (21-32) Anion Gap 7 mmol/L (5-15) Blood Urea Nitrogen 14 mg/dL (7-18) Creatinine 1.0 MG/DL (0.55-1.30) Estimat Glomerular Filtration Rate > 60 mL/min (>60) Glucose Level 109 MG/DL (74-106) H Lactic Acid Level 1.40 mmol/L (0.4-2.0) Calcium Level 8.7 MG/DL (8.5-10.1) Total Bilirubin 0.2 MG/DL (0.2-1.0) Aspartate Amino Transf (AST/SGOT) 35 U/L (15-37) Alanine Aminotransferase (ALT/SGPT) 47 U/L (12-78) Alkaline Phosphatase 97 U/L (46-116) Total Protein 5.6 G/DL (6.4-8.2) L Albumin 2.9 G/DL (3.4-5.0) L Globulin 2.7 g/dL Albumin/Globulin Ratio 1.1 (1.0-2.7) Assessment/Plan Assessment/Plan Community acquired PNA Pleural effusion COPD Paroxysmal bronchospasm Parapneumonic effusion Lactic acidosis resolved Nicotine addiction Scimitar syndrome Hypertension Ac diastolic CHF with BNP elevation likely right sided Abx tapered Oral steroids with taper Inhaled bronchodilator - albuterol - discont'd due to lactic acidosis. Taper ipratropium therapy. Repeat CXR, and consider discharge. Serial lactic acid levels Nicotine patch O2 suppl AntiHTN tx prn Tej Teran MD May 20, 2020 00:04
[2020-05-20] MEDS ORDERED: Azithromycin 500 MG in D5W 275 ML IV SCH (01:00)
[2020-05-20] MEDS: Ipratropium 0.02% Inh Soln 2.5ml UD HHN SCH ×4 (01:24→19:00)
[2020-05-20 08:00] VITALS: BP 139/97
[2020-05-20] MEDS: Docusate 100mg cap ORAL SCH ×2 (09:35→18:00)
[2020-05-20] MEDS: Heparin 5000 units/ml inj SUBQ SCH (09:36)
--- NOTE | 2020-05-20 09:46 | Pulmonology Progress Note ---
Subjective ROS Limited/Unobtainable: No Interval Events: None new reported Constitutional: Reports: no symptoms HEENT: Repors: no symptoms Respiratory: Reports: no symptoms Cardiovascular: Reports: no symptoms Gastrointestinal/Abdominal: Reports: no symptoms Allergies: Coded Allergies: No Known Allergies (Unverified , 03/24/18) Objective Last 24 Hour Vital Signs Date Time Temp Pulse Resp B/P (MAP) Pulse Ox O2 Delivery O2 Flow Rate FiO2 05/20/20 08:29 98 20 100 Room Air 21 100 18 97 05/20/20 08:29 97 Room Air 21 05/20/20 08:00 97.6 78 18 139/97 (111) 98 05/20/20 01:24 107 20 100 Nasal Cannula 2.0 28 104 20 96 05/19/20 23:19 97.9 107 18 126/96 (106) 98 05/19/20 21:00 Room Air 05/19/20 20:45 99 Room Air 21 05/19/20 20:42 113 20 99 Nasal Cannula 2.0 28 110 20 97 05/19/20 20:00 97.9 97 19 140/96 (111) 97 05/19/20 16:00 98.6 100 18 140/103 (115) 98 05/19/20 12:34 69 20 98 Nasal Cannula 2.0 28 62 18 95 05/19/20 12:00 98.6 62 18 122/71 (88) 98 Intake and Output 05/19/20 05/20/20 19:00 07:00 Intake Total 520 ml Balance 520 ml Intake Oral 520 ml # Voids 2 General Appearance: no acute distress HEENT: normocephalic Respiratory: chest wall non-tender, decreased breath sounds Cardiovascular: normal peripheral pulses, normal rate Abdomen: normal bowel sounds, soft, non tender Current Medications Medications (Trade) Dose Ordered Sig/Niki Route PRN Reason Start Time Stop Time Status Last Admin Dose Admin Acetaminophen (Tylenol) 650 mg Q4H PRN ORAL Mild Pain (Pain Scale 1-3) 05/13/20 22:45 06/12/20 22:44 05/15/20 21:46 Ceftriaxone Sodium 1 gm/ Dextrose 55 ml @ 110 mls/hr Q24H IVPB 05/19/20 23:00 05/26/20 22:59 05/19/20 23:03 Docusate Sodium (Colace) 100 mg TWICE A DAY ORAL 05/14/20 09:00 06/13/20 08:59 05/20/20 09:35 Famotidine (Pepcid) 20 mg BID ORAL 05/16/20 18:00 08/12/20 08:59 05/20/20 09:35 Guaifenesin/ Dextromethorphan (Robitussin DM Syrup) 10 ml Q4H PRN ORAL For Cough 05/13/20 22:45 08/11/20 22:44 Heparin Sodium (Porcine) (Heparin 5000 units/ml) 5,000 units EVERY 12 HOURS SUBQ 05/14/20 09:00 06/28/20 08:59 05/20/20 09:36 Ipratropium [place] (Atrovent) 500 mcg Q6HRT HHN 05/19/20 01:00 05/24/20 00:59 05/20/20 08:29 Magnesium Hydroxide (Mom) 30 ml DAILYPRN PRN ORAL Constipation 05/13/20 22:45 06/12/20 22:44 Nicotine (Nicoderm) 1 patch Q24H TDERMAL 05/13/20 22:45 08/11/20 22:44 05/19/20 23:04 Ondansetron HCl (Zofran) 4 mg Q6H PRN IVP Nausea & Vomiting 05/13/20 22:45 06/12/20 22:44 05/15/20 00:22 Potassium Chloride (K-Dur) 40 meq TWICE A DAY ORAL 05/18/20 12:00 08/16/20 11:59 05/20/20 09:35 Prednisone (predniSONE) 10 mg DAILY ORAL 05/16/20 12:00 06/15/20 11:59 05/20/20 09:35 Assessment/Plan Assessment/Plan IMPRESSION: 1. Right pleural effusion. Small 2. Right lung pneumonia. 3. Scimitar syndrome. DISCUSSION: Agree with current management and care. Broad spectrum antibiotics. Advised tobacco cessation. Steroids, PO now. DVT and GI prophylaxes. I will follow. Lactic acid now normal Reviewed CXR 05/20.20 Improved; OK to dc home Bud Tirmizi, M.D. Tirmizi,Bud Leonardo MD May 20, 2020 09:46
--- NOTE | 2020-05-20 10:28 | Nephrology Progress Note ---
Assessment/Plan Problem List: (1) Scimitar syndrome (2) Asthma exacerbation (3) Lactic acidosis Plan May 20: Stable from renal standpoint of view. May 19: ABG acceptable. Lactic acid within normal limit. Continue per PMD. May 18: Potassium supplement given. Continue to monitor lactic acid off albuterol inhaler. May 17: IV fluid to be discontinued. Potassium supplement given. Lactic acid lower now that the albuterol is discontinued. Continue per pulmonary. Elevated lactic acid level: Discussed with Drs. Teran and Savana Based on clinical data and patient's clinical situation I could only find albuterol being responsible for high lactic acid level. It was agreed upon discontinuation of albuterol inhaler and monitor lactic acid level. Per orders Subjective ROS Limited/Unobtainable: No Objective Objective Last 24 Hour Vital Signs Date Time Temp Pulse Resp B/P (MAP) Pulse Ox O2 Delivery O2 Flow Rate FiO2 05/20/20 08:29 98 20 100 Room Air 21 100 18 97 05/20/20 08:29 97 Room Air 21 05/20/20 08:00 97.6 78 18 139/97 (111) 98 05/20/20 01:24 107 20 100 Nasal Cannula 2.0 28 104 20 96 05/19/20 23:19 97.9 107 18 126/96 (106) 98 05/19/20 21:00 Room Air 05/19/20 20:45 99 Room Air 21 05/19/20 20:42 113 20 99 Nasal Cannula 2.0 28 110 20 97 05/19/20 20:00 97.9 97 19 140/96 (111) 97 05/19/20 16:00 98.6 100 18 140/103 (115) 98 05/19/20 12:34 69 20 98 Nasal Cannula 2.0 28 62 18 95 05/19/20 12:00 98.6 62 18 122/71 (88) 98 Intake and Output 05/19/20 05/20/20 19:00 07:00 Intake Total 520 ml Balance 520 ml Intake Oral 520 ml # Voids 2 Height (Feet): 5 Height (Inches): 6.00 Weight (Pounds): 160 General Appearance: no apparent distress Objective No change Angel Westfall MD May 20, 2020 10:28
[2020-05-20 12:00] VITALS: BP 127/81
--- NOTE | 2020-05-20 14:04 | Diagnostic Imaging Report ---
Indication: Reason For Exam: SOB Technique: Single AP view of the chest. Comparison: Chest radiograph dated 05/13/2020; CT chest dated 05/13/2020 Findings: The cardiomediastinal silhouette is unchanged in appearance, with persistent left to right mediastinal shift. Redemonstration of right basilar lung opacity with associated volume loss. Diffuse interstitial prominence is again noted. No acute osseous abnormality. Impression: Right lower lobe opacity, likely corresponding to loculated pleural effusion and airspace consolidation seen on comparison chest CT, similar in appearance to prior examination.
[2020-05-20 16:00] VITALS: BP 131/82
--- NOTE | 2020-05-22 08:46 | Discharge Summary ---
Discharge Summary Discharge Summary _ DATE OF ADMISSION: 05/13/2020 DATE OF DISCHARGE: 05/20/2020 DISCHARGED BY: REASON FOR ADMISSION: 39 years old male with past medical history of asthma, current smoker, presented to emergency department for shortness of breath for the past several days . Symptoms were getting progressively worse. Patient attempted to use inhaler at home without much relief. Patient subsequently called paramedics. Patient received bronchodilator treatment by paramedics, which did not help much with his symptoms. No fever or chills. No chest pain. No abdominal pain , lower extremity pain or edema. No recent traveling. Patient reported tested negative for COVID-19 two days ago. In emergency department vital signs were stable. COVID-19 was negative. Chest x-ray revealed right basilar opacity and volume loss, likely combination of infiltrate and atelectasis. Cardiomegaly. CT of the chest revealed no evidence of pulmonary emboli. Moderate right-sided layering pleural effusion with passive atelectasis. Diffuse right lung bronchial wall thickening possibly due to chronic infection. Diffuse right lung subpleural emphysema and basilar extensive air trapping. 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 Laboratory work-up revealed no leukocytosis, stable hemoglobin ,hematocrit and platelet count. Stable electrolytes and renal parameters. Lactic acid 2.1. Glucose 94. Stable LFT. Troponin negative. EKG revealed sinus rhythm , no acute ischemic changes. Urine toxicology screen was positive for amphetamine. Urinalysis was unremarkable. Patient received IV steroid,nebulizing treatment with bronchodilator , empiric antibiotic and admitted for further management. CONSULTANTS: pulmonary Dr. Sawant catheterization laboratory technician Dr. Westfall [facility]SE: Patient admitted and started on IV steroids and empiric antibiotic. Supplemental oxygen provided as needed to keep pulse oximetry above 92%. Nebulizing treatment with bronchodilator provided. Patient received initially IV hydration. DVT and GI prophylaxis provided. Echocardiogram demonstrated preserved ejection fraction of 65%. No evidence of wall motion abnormality. Noted elevated BNP . Subsequently IV fluids discontinued. Volumes were closely monitored. Repeated troponin negative as well. Patient was counseled on tobacco cessation and abstinence from illicit street drug. Patient started on nicotine patch. Blood cultures were negative. Sputum culture was negative. Patient was followed-up with chest x-ray. Pleural effusion was too small to tap as per blocker and polisher Patient completed treatment with antibiotic while in the hospital. Lactic acid remained persistently elevated. Per discussion between specialist, only albuterol was thought to be responsible for high lactic acid level. Albuterol was discontinued . Lactic acid was monitored , trended down to normal prior to discharge. Patient clinically stabilized . Pulse oximetry remained stable on room air . Patient subsequently was discharged to sober living. FINAL DIAGNOSES: Community-acquired pneumonia , right lung Right pleural effusion Scimitar syndrome COPD Paroxysmal bronchospasm Lactic acidosis Nicotine addiction Hypoxia Acute diastolic CHF with BNP elevation likely right-sided DISCHARGE MEDICATIONS: See Medication Reconciliation list. DISCHARGE INSTRUCTIONS: Patient was discharged to sober living facility. Patient to follow-up with up with primary care provider in 1 week. Patient was recommended to follow-up with a blocker and polisher in outpatient. I have been assigned to dictate discharge summary for this account. I was not involved in the patient's management. Alyssa Seaman NP May 22, 2020 08:46
== END 2020-05-20 19:55 | disposition home or self-care (01) | DRG 140 ==
LOC: EDBD 17:57 → EMR 18:38 → 2E 20:21 → EDBEDREQ 20:46 → 3E 05-18 10:22
DX: J44.0 Chronic obstructive pulmonary disease with (acute) lower respiratory infection (principal); J18.9 Pneumonia, unspecified organism; J44.1 Chronic obstructive pulmonary disease with (acute) exacerbation; I50.31 Acute diastolic (congestive) heart failure; E87.2 Acidosis; Q26.8 Other congenital malformations of great veins; I11.0 Hypertensive heart disease with heart failure; F17.200 Nicotine dependence, unspecified, uncomplicated; J98.01 Acute bronchospasm; Q33.6 Congenital hypoplasia and dysplasia of lung; R09.02 Hypoxemia
CPT/HCPCS: 36415; 71045; 71046; 71260; 80053; 80307; 81003; 82803; 82962; 82977; 83036; 83605; 83615; 83735; 83880; 84100; 84443; 84484; 84550; 85007; 85025; 85610; 85730; 86140; 87040; 87070; 87205; 93005; 93306; 94640; 96365; 96375; 99291; J2405; J7030; J7620; J8499; U0002